=== PATIENT | female | born 1955 | race Caucasian/White ===

== ENCOUNTER → 2017-07-06 08:55 | Outpatient (CLI) | payer BC, SELFPAY ==
[2017-07-06 11:26] LABS: Anion Gap 8 (5-15); BUN 15 mg/dL (7-18); Calcium,Total 9.6 mg/dL (8.5-10.1); Chloride 101 mmol/L (98-107); Creatinine, Serum 0.71 mg/dL (0.55-1.02); EST Glomerular Filtration Rate 89 mL/min (>60); Est Glom Filt Rate - Afr Amer 108 mL/min (>60); Glucose 162 mg/dL (70-110); Potassium 3.2 mmol/L (3.5-5.1); Sodium Level 141 mmol/L (136-145)
== END ==
PROVIDERS: Family Provider Internal Medicine; PCP Internal Medicine; Visit Provider Internal Medicine
DX: I10 Essential (primary) hypertension (principal)
CPT/HCPCS: 36415; 80048

== ENCOUNTER → 2017-12-16 08:43 | Outpatient (CLI) | payer BC, SELFPAY ==
[2017-12-16 10:27] LABS: Anion Gap 8 (5-15); BUN 17 mg/dL (7-18); Calcium,Total 9.5 mg/dL (8.5-10.1); Chloride 103 mmol/L (98-107); Cholesterol 162 mg/dL (200); Creatinine, Serum 0.77 mg/dL (0.55-1.02); EST Glomerular Filtration Rate 81 mL/min (>60); Est Glom Filt Rate - Afr Amer 98 mL/min (>60); Glucose 99 mg/dL (74-106); High Density Lipoprotein 53 mg/dL; Potassium 3.7 mmol/L (3.5-5.1); Sodium Level 143 mmol/L (136-145); Triglycerides 75 mg/dL; Very Low Density Lipoprotein 15 mg/dL (5-40)
== END ==
PROVIDERS: Family Provider Internal Medicine; PCP Internal Medicine; Visit Provider Internal Medicine
DX: I10 Essential (primary) hypertension (principal); E87.6 Hypokalemia
CPT/HCPCS: 36415; 80048; 80061

== ENCOUNTER → 2018-04-22 10:52 | Outpatient (CLI) | payer BC, SELFPAY ==
[2018-03-18 13:43] VITALS: BMI 26.9
--- NOTE | 2018-04-22 10:54 | BI_ITS ---
MAMMOGRAPHY - BILATERAL SCREENING REASON FOR EXAM: Female, 62 years old. Routine annual screening examination. PERTINENT HISTORY: Non-contributory. TECHNIQUE: Digital bilateral breast param (3D mammographic acquisition) in the CC and MLO projections. 2-D mediolateral oblique (MLO) and craniocaudad (CC) views of both breasts were obtained. CAD: Full Field Digital Mammography with Computer Added Detection was performed. COMPARISON: Comparison is made with prior study dated April 16, 2017 and April 03, 2016. FINDINGS: Breast Composition: The breasts are extremely dense, which lowers the sensitivity of mammography. There are no dominant masses or suspicious calcifications. No other significant abnormalities are identified. There has been no significant change since the prior study. BI/SCREENING MAMM (CAD), BILAT IMPRESSION: Stable bilateral screening mammogram. Yearly follow-up mammogram recommended. (A) ASSESSMENT CATEGORY: BIRADS Category 1: Negative. A letter regarding these results will be sent to the patient by the facility within 30 days. Approximately 10% of breast cancers are not detected by mammography. A normal mammogram should not delay biopsy of a clinically suspicious abnormality. [id number] Electronically Signed: Nick Rojo MD at 12:38 EST Tel [phone], Service support ,
== END ==
PROVIDERS: Family Provider Internal Medicine; PCP Internal Medicine; Referring Provider Obstetrics & Gynecology; Visit Provider Obstetrics & Gynecology
DX: Z12.31 Encounter for screening mammogram for malignant neoplasm of breast (principal)
CPT/HCPCS: 77063; 77067

== ENCOUNTER → 2018-05-06 11:11 | Outpatient (CLI) | payer BC, SELFPAY ==
[2018-05-06 13:23] LABS: ALB/GLOB Ratio 0.9 RATIO (0.9-2.4); AST(SGOT) 27 U/L (15-37); Alanine Aminotransfer ALT/SGPT 43 U/L (13-56); Albumin, Serum 3.7 g/dL (3.2-5.0); Alkaline Phosphatase 101 U/L (45-117); Anion Gap 6 (5-15); BUN 15 mg/dL (7-18); BUN/Creat Ratio 22.6 RATIO (10-20); Calcium,Total 9.8 mg/dL (8.5-10.1); Chloride 102 mmol/L (98-107); Creatinine, Serum 0.66 mg/dL (0.55-1.02); EST Glomerular Filtration Rate 96 mL/min (>60); Est Glom Filt Rate - Afr Amer 117 mL/min (>60); Free T3 2.8 pg/mL (2.18-3.98); Glucose 92 mg/dL (74-106); Potassium 3.8 mmol/L (3.5-5.1); Protein, Total 7.7 g/dL (6.4-8.2); Sodium Level 139 mmol/L (136-145); T4 Free Direct 0.88 ng/dL (0.76-1.46); Thyroid Stim Hormone (TSH) 0.99 uIU/mL (0.358-3.74)
--- OUTSIDE RECORDS SUMMARY | 2018-07-01 13:55 | XMS RPT_ITS ---
:1955 Author Organization OHIP Support Name Relationship Address Phone RSOELYN GOMEZ Unavailable [address] + [address] [place] [address] WALWO Unavailable [address] + [place] [address] PATRICIA, ROSELYN Unavailable [address] + [address] [place] [address] W[place] Unavailable [address] + [place] [address] PATRICIA, ROSELYN Unavailable [address] [place] [address] W[place] Unavailable [address] + [place] [address] PATRICIA, ROSELYN Unavailable [address] [place] [address] WAL[place] Unavailable [address] + [place] [address] PATRICIA, ROSELYN Unavailable [address] [place] [address] W[place] Unavailable [address] + [place] [address] PATRICIA, ROSELYN Unavailable [address] [place] [address] WAL[place] Unavailable [address] + [place] [address] PATRICIA, ROSELYN Unavailable [address] [place] [address] WALWO Unavailable [address] + [place] [address] PATRICIA, ROSELYN Unavailable [address] + [address] [place] [address] WALWO Unavailable [address] + [place] [address] PATRICIA, ROSELYN Unavailable [address] [place] [address] WALWO Unavailable [address] + [place] [address] PATRICIA, ROSELYN Unavailable [address] + [address] [place] [address] WALWO Unavailable [address] + [place] [address] PATRICIA, ROSELYN Unavailable [address] [place] [address] WALWO Unavailable [address] + [place] [address] PATRICIA, ROSELYN Unavailable [address] + [address] [place] [address] WALWO Unavailable [address] + [place] [address] PATRICIA, ROSELYN Unavailable [address] [place] [address] WALWO Unavailable [address] + [place] [address] Care Team Providers Name Role Amber Aziza Tan Attending Unavailable Oleghe, Efewongbe Primary Care Unavailable Oleghe, Efewongbe Attending Unavailable Oleghe, Efewongbe Referring Unavailable Oleghe, Efewongbe Primary Care Unavailable Oleghe, Efewongbe Attending Unavailable Oleghe, Efewongbe Referring Unavailable Oleghe, Efewongbe Primary Care Unavailable Zain Campos D.O. Attending Unavailable Oleghe, Efewongbe Referring Unavailable Oleghe, Efewongbe Attending Unavailable Oleghe, Efewongbe Referring Unavailable Oleghe, Efewongbe Primary Care Unavailable Claudia Pritchard Attending Unavailable Oleghe, Efewongbe Attending Unavailable Oleghe, Efewongbe Referring Unavailable Oleghe, Efewongbe Primary Care Unavailable Oleghe, Efewongbe Attending Unavailable Oleghe, Efewongbe Referring Unavailable Oleghe, Efewongbe Primary Care Unavailable Oleghe, Efewongbe Attending Unavailable Oleghe, Efewongbe Referring Unavailable Gina Sorensen Attending Unavailable MarcGina christie Referring Unavailable Oleghe, Efewongbe Primary Care Unavailable Socorro Trujillo CAR BRACER-C Attending Unavailable ShoSocorro joaquin CAR BRACER-C Referring Unavailable Oleghe, Efewongbe Primary Care Unavailable Gina Sorensen Attending Unavailable Oleghe, Efewongbe Referring Unavailable Aziza Tan Attending Unavailable Oleghe, Efewongbe Referring Unavailable Oleghe, Efewongbe Primary Care Unavailable PROBLEMS PROBLEMS DATE TYPE CONDITION / CODE ATTENDING STATUS SOURCE 05/06/2018 Unknown Z01.419 - Encounter Franchesca, Active [place] for gynecological [facility] (general) (routine) Repository without abnormal findings / Z01.419(ICD-10) 12/16/2017 Unknown I10 - Essential Oleghe, Active [place] (primary) [facility] hypertension / Hospital I10(ICD-10) Repository 09/09/2017 Unknown E87.6 - Hypokalemia Oleghe, Active [place] / E87.6(ICD-10) [facility] Repository 06/12/2017 Unknown R05 - Cough / Tan, Active [place] R05(ICD-10) [facility] Repository 05/22/2017 Unknown G47.33 - Tan, Active [place] Obstructive sleep [facility] apnea (adult) Hospital (pediatric) / Repository G47.33(ICD-10) 05/22/2017 Unknown F17.201 - Nicotine Tan, Active [place] dependence, [facility] unspecified, in Hospital remission / Repository F17.201(ICD-10) PROCEDURES PROCEDURES No Procedure Records FoundRESULTS RESULTS 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 Required: No Is patient in pain?: No Allergies amoxicillin Allergy (Mild, Verified 05/06/18 13:16) Hives decongestants Allergy (Intermediate, Uncoded 05/06/18 13:16) palpitations Medications calcium carbonate 600 mg calcium (1,500 mg) tablet 600 mg PO ONCE tab 05/14/17 [History Confirmed 05/06/18] fluticasone 50 mcg/actuation nasal spray,suspension 2 spray INTRANASAL ONCE g 05/14/17 [History Confirmed 05/06/18] cholecalciferol (vitamin D3) 2,000 unit capsule 2,000 unit PO ONCE 06/17/17 [History Confirmed 05/06/18] esomeprazole magnesium 20 mg capsule,delayed release 40 mg PO QDAY cap 06/17/17 [History Confirmed 05/06/18] venlafaxine ER 37.5 mg capsule,extended release 24 hr 37.5 mg PO QDAY #30 cap 06/18/17 [Rx Confirmed 05/06/18] cyclobenzaprine 10 mg tablet 10 mg PO QHS PRN tab 12/10/17 [History Confirmed 05/06/18] magnesium 200 mg tablet 200 mg PO QDAY 12/10/17 [History Confirmed 05/06/18] hydrochlorothiazide 12.5 mg tablet 12.5 mg PO QDAY #60 tab 02/17/18 [Rx Confirmed 05/06/18] potassium chloride ER 10 mEq capsule,extended release 10 meq PO QDAY #60 cap 03/10/18 [Rx Confirmed 05/06/18] gabapentin 100 mg capsule 200 mg PO QDAY #180 cap 04/26/18 [Rx Confirmed 05/06/18] methimazole 5 mg tablet 2.5 mg PO QDAY #30 tab 05/04/18 [Rx Confirmed 05/06/18] Is last menstrual period known: No Post menopausal: Yes Patient : No : No PFSH Medical History Benign essential HTN (Chronic) Depression (Chronic) Elevated blood pressure reading (Acute) Pneumonia (Acute) Upper respiratory infection, acute (Acute) Breathing-related sleep disorder (Chronic) Bronchitis (Chronic) GERD (gastroesophageal reflux disease) (Chronic) Hyperthyroidism (Chronic) Low back pain (Chronic) Pain in right shoulder (Chronic) Snoring (Chronic) Seizure disorder (Resolved) Pulmonary embolism (Inactive) Surgical History history of A/P repair (Acute) H/O tubal ligation (Resolved) Family History Mother Diabetes Myocardial infarction CVA (cerebral vascular accident) Thyroid disorder Cancer skin Kidney disease Father Myocardial infarction Heart disease Sister Lupus Social History Smoking Status: Former smoker quit date: 06/08/08 pack-years: 56 second hand exposure: No alcohol intake: current alcohol intake frequency: holidays/special occasions only Alcohol type: beer substance use type: does not use what type of physical activity do you participate in: walking frequency: 1-2 times per week Pregancy History 1 Elective abortions Hx Para 1 Spontaneous abortions Past Pregnancies Del. DatName GA/WeeksOutcome Route [facility] LocaProviderFOB e ht en ia tn Unknown 1975 [facility] stal th - ful wn l term Delivery Date: On 05/06/18 @ 14:05 Gina Sorensen estranged- but communicates with 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 keeps in touch with grandkids- going to be a great grandma Last PAP: 17 normal History of abnormal PAP: nl Last mammogram: nl done last week History of abnormal mammogram: Colon cancer screening: up to date Other preventative health care screenings: pcp dr sanchez Female Reproductive History Questions: Metorrhagia: No, Sexually active: Yes, Dyspareunia: Yes (dryness), PCB: No Menopausal Symptoms: No hot flashes, No night sweats, No weight change, No mood changes, No difficulty concentrating, No sleep problems, No change in libido ROS Const Constitutional: Reports as per HPI; denies poor appetite, fatigue, increased appetite, weight gain, weight loss or night sweats Cardio Card: Denies chest pain Resp Resp: Denies dyspnea or cough GI GI: Reports as per HPI; denies bloating, abdominal pain, constipation, vomiting or nausea : Reports as per HPI and other; denies blood in urine, vaginal odor, vaginal itching, vaginal dryness, vaginal discharge, urinary urgency, urinary incontinence, urinary frequency, pelvic pain, painful urination, difficulty urinating, prolapse symptoms, nipple discharge or hot flashes Skin Skin/Breast: Denies breast pain, breast skin changes, nipple discharge, breast lump or changing lesions Psych Psych: Denies difficulty concentrating or change in sex drive Exam Const General: cooperative, healthy appearing, comfortable, no acute distress, well developed, well groomed [facility] Head: normal to inspection, normocephalic Ears: hearing grossly normal bilaterally, external ears normal Nose: external nose normal Face and sinus: normal facial exam Neck Neck: normal visual inspection, full ROM, no lymphadenopathy Thyroid: thyroid normal Chest Chest palpation AND inspection: normal inspection of the chest Breast inspection: normal inspection of the breasts, normal inspection of the axillae Breast palpation: normal palpation of the breasts, normal palpation of the axillae, no axillary lymphadenopathy Resp Effort AND Inspection: normal respiratory effort GI Inspection: normal to inspection, non-distended Palpation: no guarding, soft, no hepatosplenomegaly General: bladder normal to palpation External Female Exam: normal external appearance, normal appearance of the urethra, no lesions Urethra: normal appearance of the urethra, normal palpation Speculum Exam - Vagina: normal appearance of the vagina, normal vaginal discharge Speculum Exam - Cervix: normal appearance of the cervix, no cervical discharge, no lesions, nontender Bimanual Exam- Vagina AND Uterus: No cervical tenderness, normal bimanual exam, uterine size normal, bladder normal to palpation, uterine mobility normal, uterine consistency normal, uterus non-tender, no cervical motion tenderness Bimanual Exam- Adnexa, other: normal adnexae, no adnexal masses, adnexae non-tender Skin General: no rashes or lesions noted Neuro General: alert, moves all extremities, no focal motor deficits Extrem General: no pedal edema, normal to inspection Psych Appearance: grossly normal Mental Status: mental status grossly normal Affect: normal affect Speech and Movement: speech and movement normal Attitude: cooperative Assessment AND Plan Problems 1. Encounter for gynecological examination without abnormal finding Z01.419 Plan Cervical cancer screening: pap 2016 nl Breast cancer screening: mamm up to date other health maintenance examination reviewed and orders placed if needed. Encouraged maintenance of a healthy weight and active lifestyle and handout given. Annual exam handout including recommendations for good health guidelines, Calcium/vitamin D recommendations, and basic screening information given. Problem list up to date, see problem list details for any additional plan information. Follow up in one year for annual health maintenance exam or sooner if needed. Coding Level of Care Code Off vis,est,prev 40-64yrs Diagnoses Encounter for gynecological examination without abnormal finding Z01.419 Gynecological examination findings: abnormal findings ABSENT 05/06/18 1416 <Electronically signed by Gina Sorensen MD> Date Gina Sorensen MD Cosigner Signature: Date (if applicable) CC: COMPREHENSIVE METABOLIC Collected: 05/06/2018 Status: F Source: [place] 11:13 AM [facility] REPOSITORY TYPE CODE TESTS RESULT OUT OF RANGE REFERENCE UNITS LAB L501.0100 74-106 mg/dL Normal GLU 92 Result Comment: Please note revised GLUCOSE reference range effective 2017. LAB L501.1000 7-18 mg/dL Normal BUN 15 LAB L501.1100 0.55-1.02 mg/dL Normal CREAT,SERUM 0.66 Result Comment: The validity of the calculated GFR AND GFRAA in patients over 70 years has not been determined. Clinical correlation is essential. LAB L501.1110 >60 mL/min Normal EST GFR 96 Result Comment: Non- GFR Calc LAB L501.1115 >60 mL/min Normal EST GFR - AA 117 Result Comment: GFR Calc LAB L501.1300 10-20 RATIO High BUN/CRE 22.6 LAB L501.1500 6.4-8.2 g/dL T Normal PROT 7.7 LAB L501.1800 3.2-5.0 g/dL Normal ALB 3.7 LAB L501.1950 2.2-4.2 g/dL Normal GLOB 4.0 LAB L501.2000 0.9-2.4 RATIO Normal A/G 0.9 LAB L501.2200 8.5-10.1 mg/dL CA Normal 9.8 LAB L501.4100 15-37 U/L Normal AST 27 LAB L501.4305 45-117 U/L Normal ALK P 101 LAB L501.4405 13-56 U/L Normal ALT 43 LAB L501.4600 0.20-1.00 mg/dL T Normal BILI 0.70 LAB L501.5300 136-145 mmol/L NA Normal 139 LAB L501.5600 3.5-5.1 mmol/L K Normal 3.8 LAB L501.5900 98-107 mmol/L CL Normal 102 LAB L501.6100 21.0-32.0 mmol/L Normal CO2 31.0 LAB L501.6200 5-15 Normal GAP 6 Performed By: #### L500.4050, L501.24458, L501.9520, L506.0400 #### [facility] [address] [place], [place], [id number] FREE T3 Collected: 05/06/2018 Status: F Source: [place] 11:13 AM [facility] REPOSITORY TYPE CODE TESTS RESULT OUT OF RANGE REFERENCE UNITS LAB L501.84721 2.18-3.98 pg/mL Normal FREE T3 2.8 Performed By: #### L500.4050, L501.73203, L501.9520, L506.0400 #### [facility] [address] [place], [place], [address] THYROID STIM HORMONE Collected: 05/06/2018 Status: F Source: [place] (TSH) 11:13 AM [facility] REPOSITORY TYPE CODE TESTS RESULT OUT OF RANGE REFERENCE UNITS LAB L501.9520 0.358-3.74 uIU/mL Normal TSH 0.99 Performed By: #### L500.4050, L501.90281, L501.9520, L506.0400 #### [facility] [address] [place], [address] T4 FREE DIRECT Collected: 05/06/2018 Status: F Source: [place] 11:13 AM [facility] REPOSITORY TYPE CODE TESTS RESULT OUT OF RANGE REFERENCE UNITS LAB L506.0400 0.76-1.46 ng/dL Normal T4 FREE 0.88 DIRECT Performed By: #### L500.4050, L501.46720, L501.9520, L506.0400 #### [facility] [address] [place], [address] SCREENING MAMM (CAD), Observed: 04/22/2018 Status: F Source: [place] BIL 10:54 AM [facility] REPOSITORY [facility] Services [address] [place] [address] SCREENING MAMM (CAD), BILAT MR#: [id number] Acct: [id number] Name: PATRICIANELSON Mirela Rep #: [id number] : 1955 F 62 From: Nick Rojo MD PCP: Dior Sanchez MD Status: REG CLI Study: SCREENING MAMM (CAD), BILAT Date of Exam: 04/22/18 Exam# [id number] Ordering Dr: Gina Sorensen MD MAMMOGRAPHY - BILATERAL SCREENING REASON FOR EXAM: Female, 62 years old. Routine annual screening examination. PERTINENT HISTORY: Non-contributory. TECHNIQUE: Digital bilateral breast param (3D mammographic acquisition) in the CC and MLO projections. 2-D mediolateral oblique (MLO) and craniocaudad (CC) views of both breasts were obtained. CAD: Full Field Digital Mammography with Computer Added Detection was performed. COMPARISON: Comparison is made with prior study dated April 16, 2017 and April 03, 2016. FINDINGS: Breast Composition: The breasts are extremely dense, which lowers the sensitivity of mammography. There are no dominant masses or suspicious calcifications. No other significant abnormalities are identified. There has been no significant change since the prior study. BI/SCREENING MAMM (CAD), BILAT IMPRESSION: Stable bilateral screening mammogram. Yearly follow-up mammogram recommended. (A) ASSESSMENT CATEGORY: BIRADS Category 1: Negative. A letter regarding these results will be sent to the patient by the facility within 30 days. Approximately 10% of breast cancers are not detected by mammography. A normal mammogram should not delay biopsy of a clinically suspicious abnormality. [id number] Electronically Signed: Nick Rojo MD at 12:38 EST Tel [phone], Service support , CC: Dior Sanchez MD; Gina Sorensen MD Logistics Analytics Manager: Signed INTERNAL MEDICINE Observed: 03/19/2018 Status: F Source: [place] OFFICE VISIT 4:33 PM [facility] [address] [place] [address] [place] [address] OFFICE VISIT Date of Service: 03/18/18 MR#: [id number] Acct: [id number] Name: NELSON GOMEZ Rep #: [id number] : 1955 Provider: Dior Sanchez MD Age/Sex: 62/F Location[facility] Status: Signed Intake Vital Signs03/18/18 Height 5 ft 4 in 03/18/18 Weight: 157 lb 03/18/18 Body Mass Index (BMI) 26.9 03/18/18 Blood Pressure 136/88 H 03/18/18 Blood Pressure Location Lt brachial Intake Visit Reasons: 3 MO FU Chief Complaint: 3 MO FU HTN Is patient in pain?: No Allergies amoxicillin Allergy (Mild, Verified 03/18/18 13:44) Hives decongestants Allergy (Intermediate, Uncoded 03/18/18 13:44) palpitations Medications calcium carbonate 600 mg calcium (1,500 mg) tablet 600 mg PO ONCE tab 05/14/17 [History Confirmed 03/18/18] fluticasone 50 mcg/actuation nasal spray,suspension 2 spray INTRANASAL ONCE g 05/14/17 [History Confirmed 03/18/18] methimazole 5 mg tablet 2.5 mg PO QDAY tab 05/14/17 [History Confirmed 03/18/18] cholecalciferol (vitamin D3) 2,000 unit capsule 2,000 unit PO ONCE 06/17/17 [History Confirmed 03/18/18] esomeprazole magnesium 20 mg capsule,delayed release 40 mg PO QDAY cap 06/17/17 [History Confirmed 03/18/18] venlafaxine ER 37.5 mg capsule,extended release 24 hr 37.5 mg PO QDAY #30 cap 06/18/17 [Rx Confirmed 03/18/18] gabapentin 100 mg capsule 200 mg PO QDAY #180 cap 09/29/17 [Rx Confirmed 03/18/18] cyclobenzaprine 10 mg tablet 10 mg PO QHS PRN tab 12/10/17 [History Confirmed 03/18/18] magnesium 200 mg tablet 200 mg PO QDAY 12/10/17 [History Confirmed 12/10/17] hydrochlorothiazide 12.5 mg tablet 12.5 mg PO QDAY #60 tab 02/17/18 [Rx Confirmed 03/18/18] potassium chloride ER 10 mEq capsule,extended release 10 meq PO QDAY #60 cap 03/10/18 [Rx Confirmed 03/18/18] [facility] Medical History Benign essential HTN (Chronic) Depression (Chronic) Pulmonary embolism (Chronic) Elevated blood pressure reading (Acute) Pneumonia (Acute) Upper respiratory infection, acute (Acute) Breathing-related sleep disorder (Chronic) Bronchitis (Chronic) GERD (gastroesophageal reflux disease) (Chronic) Hyperthyroidism (Chronic) Low back pain (Chronic) Pain in right shoulder (Chronic) Snoring (Chronic) Seizure disorder (Resolved) Surgical History H/O tubal ligation (Resolved) Family History Mother Diabetes Myocardial infarction CVA (cerebral vascular accident) Thyroid disorder Cancer skin Kidney disease Father Myocardial infarction Heart disease Sister Lupus Social History Smoking Status: Former smoker quit date: 01/01/09 pack-years: 56 second hand exposure: No alcohol intake: current alcohol intake frequency: holidays/special occasions only Alcohol type: beer substance use type: does not use what type of physical activity do you participate in: walking frequency: 1-2 times per week HPI HPI Chief Complaint: 3 MO FU HTN Details: NELSON GOMEZ, is a 62yo F who presents to the office today for follow-up of her chronic medical conditions. She has no acute complaints at this time. Initial blood pressure reading of 136/80 8 mmHg. However, repeat blood pressure was 130/80 mmHg. She reports compliance with her medications. ROS Const Constitutional: No chills, fatigue, fever(s), frequent falls, malaise, weakness, sleep problems or change in appetite Eyes Eyes: No blurry vision, change in vision, double vision, discharge or visual disturbances ENT ENT: No abnormal hearing, ear pain, ear pressure, tinnitus or dizziness/vertigo Resp Respiratory: No cough, shortness of breath or wheezing Cardio Cardiology: No chest pain at rest, chest pain with exertion, shortness of breath, dyspnea on exertion, generalized swelling, irregular heart rhythm, lightheadedness, orthopnea, fast heart rate or palpitations Gastro GI: No abdominal pain, change in bowel habits, constipation, diarrhea, nausea/dyspepsia or vomiting Genitourinary-Female: No difficulty urinating, burning urination, painful urination, urinary incontinence, urinary frequency, urinary urgency, urinary hesitancy, urinary retention, Frequent nighttime urination/ nocturia, sexual problems, genital lesions, abnormal vaginal bleeding, pelvic pain, vaginal dryness, vaginal odor or Vaginal Itching Musc Musculoskeletal: No joint pain, back pain, joint swelling, limited range of motion, numbness or tingling Skin Skin: No change in skin color, itching, rash or wounds Breast Breast: No breast lump or breast pain Neuro Neurology: No frequent falls, weakness, abnormal hearing, numbness, tingling, unsteady gait/balance, dizziness, loss of vision, memory loss or visual disturbances Psych Psychiatric: No memory loss, No anxiety, No change in appetite, No depression, No Thoughts of harming yourself/Others Endo Endocrine: No fatigue, heat intolerance, increased thirst/drinking, increased hunger or increased urination Aller/Imm Allergy/Immunologic: No wheezing, itchy eyes or seasonal allergy symptoms Jose Antonio/Lymp Hematologic/Lymphatic: No easy bleeding, easy bruising or enlarged lymph nodes Exam Const General: cooperative, no acute distress Orientation: alert, awake, oriented x3 HENMT Head: atraumatic, normocephalic Ears: hearing grossly normal bilaterally Resp Effort AND Inspection: normal respiratory effort, able to speak in complete sentences Auscultation: Bilateral: Clear to Auscultation Cardio Rate: regular rate Rhythm: regular rhythm Heart Sounds: S1 normal, S2 normal GI Palpation: soft, no hepatosplenomegaly Neuro General: alert, awake, oriented x3, moves all extremities, CN's II-XI intact bilaterally Extrem General: no clubbing, cyanosis or edema Psych Appearance: grossly normal Mood: congruent mood Affect: normal affect Assessment AND Plan 1. Benign essential HTN I10 Plan Stable. Initial Bp elevated however, repeat Bp at 130/80mmHg. She reports compliance with her medications, continue current management. Continue lifestyle/dietary modifications. 2. Depression F32.9 Plan Stable. Has done well on venlafaxine. Continue current management. 3. Low back pain radiating to left lower extremity M54.5; M79.605 Plan Stable. No recent flareups. Continue gabapentin. 4. Healthcare maintenance Z00.00 Plan Scheduled to receive flu shot at work. Works at [employer]. 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 Mammogram scheduled for next month. Colonoscopy due in 3 years. Discuss lung cancer screening at her next visit. This note was generated with [employer] dictation software. It may contain incorrect words, spelling, and punctuation that were not noted in checking the note before signing. Coding Level of Care Code Off vis,est,level 3 Diagnoses Benign essential HTN I10 Depression F32.9 Low back pain radiating to left lower extremity M54.5; M79.605 Healthcare maintenance Z00.00 03/19/18 1909 <Electronically signed by Dior Sanchez MD> Date Dior Sanchez MD Cosigner Signature: Date (if applicable) CC: BASIC METABOLIC Collected: 12/16/2017 Status: F Source: [place] [facility] 8:49 AM [facility] REPOSITORY TYPE CODE TESTS RESULT OUT OF RANGE REFERENCE UNITS LAB L501.0100 74-106 mg/dL Normal GLU 99 Result Comment: Please note revised GLUCOSE reference range effective 2017. LAB L501.1000 7-18 mg/dL Normal BUN 17 LAB L501.1100 0.55-1.02 mg/dL Normal CREAT,SERUM 0.77 Result Comment: The validity of the calculated GFR AND GFRAA in patients over 70 years has not been determined. Clinical correlation is essential. LAB L501.1110 >60 mL/min Normal EST GFR 81 Result Comment: Non- GFR Calc LAB L501.1115 >60 mL/min Normal EST GFR - AA 98 Result Comment: GFR Calc LAB L501.1300 10-20 RATIO High BUN/CRE 22.0 LAB L501.2200 8.5-10.1 mg/dL CA Normal 9.5 LAB L501.5300 136-145 mmol/L NA Normal 143 LAB L501.5600 3.5-5.1 mmol/L K Normal 3.7 LAB L501.5900 98-107 mmol/L CL Normal 103 LAB L501.6100 21.0-32.0 mmol/L Normal CO2 32.0 LAB L501.6200 5-15 Normal GAP 8 Performed By: #### L500.2500, L500.4100 #### [facility] [address] [place], [address] LIPID PROFILE Collected: 12/16/2017 Status: F Source: [place]EV[place] 8:49 AM [facility] [place] REPOSITORY TYPE CODE TESTS RESULT OUT OF RANGE REFERENCE UNITS LAB L501.4900 200 mg/dL Normal CHOL 162 Result Comment: <200 mg/dL Desirable 200-240 mg/dL Borderline >240 mg/dL High Risk LAB L501.5000 mg/dL Normal TRIG 75 Result Comment: The drugs N-Acetylcysteine and Metamizole may falsely depress this assay. Serum Triglycerides Reference Interval Normal <150 mg/dL Borderline high 150 - 199 mg/dL High 200 - 499 mg/dL Very High > or = 500 mg/dL LAB L501.6400 mg/dL Normal HDL 53 Result Comment: The drugs N-Acetylcysteine and Metamizole may falsely depress this assay. Reference Range HDL <40 mg/dL Low HDL Cholesterol HDL >or= 60 mg/dL High HDL Cholesterol LAB L501.6500 0-130 mg/dL Normal LDL 94 LAB L501.6600 5-40 mg/dL Normal VLDL 15 Performed By: #### L500.2500, L500.4100 #### [facility] [address] [place], [address] INTERNAL MEDICINE Observed: 12/11/2017 Status: F Source: [place] OFFICE VISIT 12:54 PM [facility] [place] REPOSITORY [facility] [address] [place] [address] [place] [address] OFFICE VISIT Date of Service: 12/10/17 MR#: [id number] Acct: [id number] Name: NELSON GOMEZ Rep #: [id number] : 1955 Provider: Dior Sanchez MD Age/Sex: 62/F Location: [facility] Status: Signed Intake Vital Signs12/10/17 Height 5 ft 4 in Intake Visit Reasons: 3 MO FU Chief Complaint: 3 mo F/U BP Is patient in pain?: No Allergies amoxicillin Allergy (Mild, Verified 09/09/17 17:28) Hives decongestants Allergy (Intermediate, Uncoded 09/09/17 17:28) palpitations Medications calcium carbonate 600 mg calcium (1,500 mg) tablet 600 mg PO ONCE tab 05/14/17 [History Confirmed 12/10/17] fluticasone 50 mcg/actuation nasal spray,suspension 2 spray INTRANASAL ONCE g 05/14/17 [History Confirmed 12/10/17] methimazole 5 mg tablet 2.5 mg PO QDAY tab 05/14/17 [History Confirmed 12/10/17] cholecalciferol (vitamin D3) 2,000 unit capsule 2,000 unit PO ONCE 06/17/17 [History Confirmed 12/10/17] esomeprazole magnesium 20 mg capsule,delayed release 40 mg PO QDAY cap 06/17/17 [History Confirmed 12/10/17] hydrochlorothiazide 12.5 mg tablet 12.5 mg PO QDAY #60 tab 06/17/17 [Rx Confirmed 12/10/17] venlafaxine ER 37.5 mg capsule,extended release 24 hr 37.5 mg PO QDAY #30 cap 06/18/17 [Rx Confirmed 12/10/17] blood pressure test kit-medium cuff See Dose Instructions .ROUTE .MEDSUPPLY #1 ea 06/19/17 [Rx Confirmed 12/10/17] potassium chloride ER 10 mEq capsule,extended release 10 meq PO QDAY #60 cap 07/06/17 [Rx Confirmed 12/10/17] gabapentin 100 mg capsule 200 mg PO QDAY #180 cap 09/29/17 [Rx Confirmed 12/10/17] cyclobenzaprine 10 mg tablet 10 mg PO QHS PRN tab 12/10/17 [History Confirmed 12/10/17] magnesium 200 mg tablet 200 mg PO QDAY 12/10/17 [History Confirmed 12/10/17] PFSH Medical History Benign essential HTN (Chronic) Depression (Chronic) Pulmonary embolism (Chronic) Elevated blood pressure reading (Acute) Pneumonia (Acute) Upper respiratory infection, acute (Acute) Breathing-related sleep disorder (Chronic) Bronchitis (Chronic) GERD (gastroesophageal reflux disease) (Chronic) Hyperthyroidism (Chronic) Low back pain (Chronic) Pain in right shoulder (Chronic) Snoring (Chronic) Seizure disorder (Resolved) Surgical History H/O tubal ligation (Resolved) Family History Mother Diabetes Myocardial infarction CVA (cerebral vascular accident) Thyroid disorder Cancer skin Kidney disease Father Myocardial infarction Heart disease Sister Lupus Social History Smoking Status: Former smoker quit date: 06/08/08 pack-years: 56 second hand exposure: No alcohol intake: current alcohol intake frequency: holidays/special occasions only Alcohol type: beer substance use type: does not use what type of physical activity do you participate in: walking frequency: 1-2 times per week HPI HPI Chief Complaint: 3 mo F/U BP Details: NELSON GOMEZ, is a 62yo F who presents to the office today for follow-up of her blood pressure. She has no complaints at this time. Blood pressure has remained stable. ROS Const Constitutional: No weight change, body ache, chills, fatigue, sleep problems, fever(s), change in appetite, snoring, weakness, frequent falls, headache(s) or excessive sweating Eyes Eyes: No change in vision, eye pain, light sensitivity or blurry vision ENT ENT: No headache(s), abnormal hearing, ear pain, tinnitus, nasal congestion, sore throat or neck pain Resp Respiratory: No snoring, cough, shortness of breath or wheezing Cardio Cardiology: No excessive sweating, chest pain at rest, chest pain with exertion, shortness of breath, dyspnea on exertion, palpitations, orthopnea or lightheadedness Gastro GI: No abdominal pain, change in bowel habits, constipation, diarrhea, vomiting, nausea/dyspepsia or cramping Genitourinary-Female: No burning urination, painful urination, urinary incontinence, urinary frequency, abnormal vaginal bleeding, pelvic pain or other Musc Musculoskeletal: No neck pain, abnormal walking, joint pain, back pain, limited range of motion, numbness, tingling or muscle weakness Skin Skin: No redness, dry skin, itching, lesions, wounds or rash Neuro Neurology: No weakness, frequent falls, headache(s), abnormal hearing, abnormal walking, numbness, tingling, abnormal speech, dizziness or memory loss Psych Psychiatric: No change in appetite, No memory loss, No anxiety, No depression, No Thoughts of harming yourself/Others Endo Endocrine: No fatigue, excessive sweating, cold intolerance, increased thirst/drinking, heat intolerance, flushing or increased hunger Aller/Imm Allergy/Immunologic: No wheezing, itchy eyes, hives or seasonal allergy symptoms Jose Antonio/Lymp Hematologic/Lymphatic: No easy bleeding, easy bruising or enlarged lymph nodes Exam Const General: cooperative, no acute distress Orientation: alert, awake, oriented x3 HENMT Head: atraumatic, normocephalic Ears: hearing grossly normal bilaterally Resp Effort AND Inspection: normal respiratory effort, able to speak in complete sentences Auscultation: Bilateral: Clear to Auscultation Cardio Rate: regular rate Rhythm: regular rhythm Heart Sounds: S1 normal, S2 normal GI Palpation: soft, no hepatosplenomegaly Musc Musculoskeletal: No muscle weakness Neuro General: alert, awake, oriented x3, moves all extremities, CN's II-XI intact bilaterally Extrem General: pedal edema bilaterally Psych Appearance: grossly normal Mood: congruent mood Affect: normal affect Assessment AND Plan 1. Benign essential HTN I10 Plan Optimally controlled. Continue current medications. BMP and lipid profile ordered. Will follow. Orders Orders: 2. Depression F32.9 Plan Stable. Continue current medications. 3. CHING (obstructive sleep apnea) G47.33 Plan Stable. Continue CPAP. This note was generated with EquityLanceration software. It may contain incorrect words, spelling, and punctuation that were not noted in checking the note before signing. Plan Detail Follow Up 3 Months Coding Level of Care Code Off vis,est,level 3 Diagnoses Benign essential HTN I10 Depression F32.9 CHING (obstructive sleep apnea) G47.33 12/11/17 1254 <Electronically signed by Dior Sanchez MD> Date Dior Sanchez MD Cosigner Signature: Date (if applicable) CC: INTERNAL MEDICINE Observed: 09/11/2017 Status: F Source: KEV[place] OFFICE VISIT 1:04 PM [facility] [address] [place] [address] [place] [address] OFFICE VISIT Date of Service: 09/09/17 MR#: [id number] Acct: [id number] Name: NELSON GOMEZ Rep #: [id number] : 1955 Provider: Dior Sanchez MD Age/Sex: 62/F Location: [facility] Status: Signed Intake Vital Signs09/09/17 Height 5 ft 4 in 09/09/17 Weight: 152 lb 09/09/17 Body Mass Index (BMI) 26.1 09/09/17 Blood Pressure 123/83 Intake Visit Reasons: 3 mo fu Chief Complaint: 3 mo F/U BP Is patient in pain?: No Allergies amoxicillin Allergy (Mild, Verified 09/09/17 17:28) Hives decongestants Allergy (Intermediate, Uncoded 09/09/17 17:28) palpitations Medications calcium carbonate 600 mg calcium (1,500 mg) tablet 600 mg PO ONCE tab 05/14/17 [History Confirmed 06/17/17] fluticasone 50 mcg/actuation nasal spray,suspension 2 spray INTRANASAL ONCE g 05/14/17 [History Confirmed 06/17/17] gabapentin 100 mg capsule 200 mg PO QDAY cap 05/14/17 [History Confirmed 06/17/17] methimazole 5 mg tablet 2.5 mg PO QDAY tab 05/14/17 [History Confirmed 06/17/17] biotin 1,000 mcg chewable tablet mcg PO 06/17/17 [History Confirmed 06/17/17] cholecalciferol (vitamin D3) 2,000 unit capsule 2,000 unit PO ONCE 06/17/17 [History Confirmed 06/17/17] esomeprazole magnesium 20 mg capsule,delayed release 40 mg PO QDAY cap 06/17/17 [History Confirmed 06/17/17] hydrochlorothiazide 12.5 mg tablet 12.5 mg PO QDAY #60 tab 06/17/17 [Rx Confirmed 06/17/17] venlafaxine ER 37.5 mg capsule,extended release 24 hr 37.5 mg PO QDAY #30 cap 06/18/17 [Rx] blood pressure test kit-medium cuff See Dose Instructions .ROUTE .MEDSUPPLY #1 ea 06/19/17 [Rx] potassium chloride ER 10 mEq capsule,extended release 10 meq PO QDAY #60 cap 07/06/17 [Rx Confirmed 07/06/17] [facility] Medical History Benign essential HTN (Chronic) Depression (Chronic) Pulmonary embolism (Chronic) Elevated blood pressure reading (Acute) Pneumonia (Acute) Upper respiratory infection, acute (Acute) Breathing-related sleep disorder (Chronic) Bronchitis (Chronic) GERD (gastroesophageal reflux disease) (Chronic) Hyperthyroidism (Chronic) Low back pain (Chronic) Pain in right shoulder (Chronic) Snoring (Chronic) Seizure disorder (Resolved) Surgical History H/O tubal ligation (Resolved) Family History Mother Diabetes Myocardial infarction CVA (cerebral vascular accident) Thyroid disorder Cancer skin Kidney disease Father Myocardial infarction Heart disease Sister Lupus Social History Smoking Status: Former smoker quit date: 06/08/08 pack-years: 56 second hand exposure: No alcohol intake: current alcohol intake frequency: holidays/special occasions only Alcohol type: beer substance use type: does not use what type of physical activity do you participate in: walking frequency: 1-2 times per week HPI HPI Chief Complaint: 3 mo F/U BP Details: NELSON GOMEZ, is a 62yo F who presents to the office today for follow-up of her blood pressure. She has no acute complaints at this time. ROS Const Constitutional: No anorexia, body ache, chills, fever(s), decreased energy, malaise, night sweats, weight change, sleep problems, other, weakness, frequent falls, headache(s), abnormal sleep pattern, change in appetite, excessive sweating or fatigue Eyes Eyes: No blurry vision, change in vision, double vision, discharge, dry eyes, bulging eyes, floaters, eye pain, light sensitivity, spots in vision, tunnel vision, other or visual disturbances ENT ENT: No ear pain, ear discharge, ear pressure, hearing loss, tinnitus, dizziness/vertigo, balance problems, nosebleed/epistaxis, nasal congestion, nasal obstruction, nose pain, sinus pressure, sinus pain, nasal discharge, post nasal drip, facial pain, dental pain, dry mouth, bad breath, hoarseness, mouth lesions, mouth pain, sore throat, difficulty swallowing, neck pain, abnormal hearing, headache(s), other, lip swelling, throat swelling or tongue swelling Resp Respiratory: No wheezing Cardio Cardiology: No chest pain at rest, chest pain with exertion, leg pain with exertion, shortness of breath, dyspnea on exertion, generalized swelling, irregular heart rhythm, lightheadedness, orthopnea, radiating jaw, neck or arm pain, fast heart rate, slow heart rate, palpitations, other or excessive sweating Gastro GI: No abdominal pain, belching, bloating, change in bowel habits, change in stool character, coffee ground emesis, constipation, cramping, diarrhea, heartburn, difficulty swallowing, feeling full early, excessive flatus, incontinent of stools, Vomiting blood/hematemesis, blood in stool, loose stools, Black,tarry stools, nausea/dyspepsia, pain with swallowing, vomiting or other Genitourinary-Female: No difficulty urinating, burning urination, painful urination, urinary incontinence, urinary frequency, urinary urgency, urinary hesitancy, urinary retention, blood in urine, Frequent nighttime urination/ nocturia, post void dribbling, suprapubic fullness, side pain, sexual problems, genital lesions, genital itching, hot flashes, abnormal periods, abnormal vaginal bleeding, absent period, painful periods, light periods, heavy periods, difficulty getting , painful intercourse, pelvic pain, vaginal dryness, vaginal odor, Vaginal Itching or other Musc Musculoskeletal: Positive for back pain; no joint pain, deformity, joint swelling, limited range of motion, loss of height, muscle cramps, muscle weakness, decreased muscle mass, body aches, neck pain, radiating pain into limb, stiffness, other, abnormal walking, numbness or tingling Skin Skin: No acne, hair loss, change in hair, nail changes, boil, change in skin color, dry skin, redness, excessive hair growth, yellowing of the skin, lesions, rash, skin pain, skin ulcer, sores, skin swelling, wounds, other or itching Breast Breast: No change in breast shape, breast lump, breast pain, breast skin changes, breast swelling, nipple discharge or other Neuro Neurology: No abnormal walking, abnormal hearing, abnormal movements, abnormal speech, unsteady gait/balance, dizziness, weakness, frequent falls, headache(s), lack of coordination, loss of vision, numbness, tingling, visual disturbances, restless legs, fainting, tremor(s), other, behavioral changes, confusion or memory loss Psych Psychiatric: No abnormal sleep pattern, No lack of enjoyment, No anxiety, No behavioral changes, No change in appetite, No confusion, No depression, No difficulty concentrating, No hopelessness, No irritability, No memory loss, No mood swings, No panic attacks, No paranoia, No Thoughts of harming yourself/Others, No hallucinations, No other Endo Endocrine: No change in body appearance, cold intolerance, excessive sweating, fatigue, flushing, heat intolerance, increased thirst/drinking, increased hunger, increased urination or other Aller/Imm Allergy/Immunologic: No food intolerance, itchy eyes, lip swelling, seasonal allergy symptoms, throat swelling, tongue swelling, hives, wheezing or other Jose Antonio/Lymp Hematologic/Lymphatic: No easy bleeding, easy bruising, enlarged lymph nodes or other Exam Const General: cooperative, no acute distress Orientation: alert, awake, oriented x3 HENWV Head: atraumatic, normocephalic Ears: hearing grossly normal bilaterally Resp Effort AND Inspection: normal respiratory effort, able to speak in complete sentences Auscultation: Bilateral: Clear to Auscultation Cardio Rate: regular rate Rhythm: regular rhythm Heart Sounds: S1 normal, S2 normal GI Palpation: soft, no hepatosplenomegaly Musc Musculoskeletal: No muscle weakness Neuro General: alert, awake, oriented x3, moves all extremities, CN's II-XI intact bilaterally Extrem General: pedal edema bilaterally Psych Appearance: grossly normal Mood: congruent mood Affect: normal affect Assessment AND Plan 1. Benign essential HTN I10 Plan Better controlled. Blood pressure in office today is 133/84 mmHg. Continue hydrochlorothiazide 12.5 mg daily. Continue lifestyle modifications. Follow-up in 3 months. Orders Orders: 2. Depression F32.9 Plan Stable. Continue current medications. Follow-up at next visit. 3. Hypokalemia E87.6 Plan Medication induced. Started on potassium chloride 10 mEq daily. Recheck BMP. Continue current medication. Will follow. This note was generated with Ison[employer] dictation software. It may contain incorrect words, spelling, and punctuation that were not noted in checking the note before signing. Orders Orders: Plan Detail Follow Up 3 Months Coding Level of Care Code Off vis,est,level 3 Diagnoses Benign essential HTN I10 Depression F32.9 Hypokalemia E87.6 09/11/17 1304 <Electronically signed by Dior Sanchez MD> Date Dior Sanchez MD Cosigner Signature: Date (if applicable) CC: BASIC METABOLIC PANL Collected: 09/10/2017 Status: F Source: [place] 12:15 PM [facility] REPOSITORY TYPE CODE TESTS RESULT OUT OF REFERENCE UNITS RANGE LAB GLU 74-99 mg/dL High Glucose 106 Result Comment: The [place] Diabetes [employer] (ADA) provides guidance for cutoff values for fasting glucose and random glucose. The ADA defines fasting as no caloric intake for at least 8 hours. Fas ting plasma glucose results between 100 to 125 mg/dL indicate increased risk for diabetes (prediabetes). Fasting plasma glucose results greater than or equal to 126 mg/dL meet the criteria for diagnosis of diabetes. In the absence of unequivocal hyperglycemia, results should be confirmed by repeat testing. In a patient with classic symptoms of hyperglycemia or hyperglycemic crisis, random plasma glucose results greater than or equal to 200 mg/dL meet the criteria for diagnosis of diabetes. Reference: Standards of Medical Care in Diabetes 2016, [place] [employer] Association. Diabetes Care. 2016.39(Suppl 1). LAB BUN 7-21 mg/dL BUN 17 LAB CRET 0.58-0.96 mg/dL Creatinine 0.70 LAB NA 136-144 mmol/L Sodium 143 LAB K 3.7-5.1 mmol/L Potassium 3.7 LAB CL 97-105 mmol/L Chloride 100 LAB CO2 22-30 mmol/L CO2 30 LAB AGAP 9-18 mmol/L Anion Gap 13 LAB CA 8.5-10.2 mg/dL Calcium, Total 10.0 LAB GFRAA eGFR- Amer. >60 LAB GFRNAA . eGFR-All Other Races >60 Result Comment: eGFR (Estimated GFR) Units of measure: mL/min/1.73 meters squared eGFR is derived from the reexpressed MDRD Study equation using the following parameters: serum creatinine, age, gender and race. The creatinine assay has been calibrated to be traceable to IDMS. An eGFR <60 mL/min/1.73m2 for >3 months is consistent with chronic kidney disease. Refer to KDOQI guidelines for clinical interpretation. In patients with unstable renal function, e.g. those with acute kidney injury, the eGFR may not accurately reflect actual GFR. Performed By: #### BMP #### [facility] [address] [place], [place] [address] BASIC METABOLIC Collected: 07/06/2017 Status: F Source: [place] PROFILE (BMP) 8:59 AM [facility] REPOSITORY TYPE CODE TESTS RESULT OUT OF RANGE REFERENCE UNITS LAB L501.0100 70-110 mg/dL High GLU 162 Result Comment: Fasting Glucose result greater than or equal to 126 mg/dL suggests DIABETES MELLITUS per A.D.A. criteria. LAB L501.1000 7-18 mg/dL Normal BUN 15 LAB L501.1100 0.55-1.02 mg/dL Normal CREAT,SERUM 0.71 Result Comment: The validity of the calculated GFR AND GFRAA in patients over 70 years has not been determined. Clinical correlation is essential. LAB L501.1110 >60 mL/min Normal EST GFR 89 Result Comment: Non- GFR Calc LAB L501.1115 >60 mL/min Normal EST GFR - AA 108 Result Comment: GFR Calc LAB L501.1300 10-20 RATIO High BUN/CRE 21.0 LAB L501.2200 8.5-10.1 mg/dL CA Normal 9.6 LAB L501.5300 136-145 mmol/L NA Normal 141 LAB L501.5600 3.5-5.1 mmol/L Low K 3.2 LAB L501.5900 98-107 mmol/L CL Normal 101 LAB L501.6100 21.0-32.0 mmol/L Normal CO2 32.0 LAB L501.6200 5-15 Normal GAP 8 Performed By: #### L500.2500 #### [facility] [address] [facility] [place], [place], [address] PULMONARY VISIT REPORT Observed: 07/01/2017 Status: F Source: [place] 12:17 PM [facility] [place] REPOSITORY [facility]monary Medicine of [address] [place] [address] OFFICE VISIT Date of Service: 05/21/17 MR#: [id number] Acct: [id number] Name: NELSON GOMEZ Rep #: [id number] : 1955 Provider: Aziza Tan Age/Sex: 61/F Location: [facility] Status: Signed Assessment AND Plan 1. CHING (obstructive sleep apnea) G47.33 Status Acute Plan Recent titration study indicates that the patient's apnea is controlled at a pressure support of 15 cm of water with a nasal mask. The patient's device is scheduled to be delivered today. She has been encouraged to contact the office if she has any difficulty with set up. This does seem to be a bit of a high pressure, she has been encouraged to contact the office early if she is not tolerating the pressure. Follow-up with Dr. Campos in 3 months. 2. Cough R05 Status Chronic Plan This patient reports having a cough, that is noticeable in the evening. She does have a significant past of smoking. She will be evaluated for potential COPD by obtaining a complete coronary function test. She will then follow-up with Dr. Campos in 3 months, at which time they can review the test and determine if there are any inhalers that are appropriate. The patient was educated on the fact that this is a baseline PFT and that we will continue to monitor this. Orders Orders: 3. 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 May be appropriate for low-dose CT in the future. Follow-up with Dr. Campos in 3 months. Plan Detail Follow Up 3 Months (DMB) HPI HPI Comments Details: Patient presents to the office today as an initial consultation referral for newly diagnosed obstructive sleep apnea. She is ambulatory, currently on room air and accompanied by her . The patient reports that her primary care physician was concerned about her snoring and sent her for a sleep study. The patient was then set up for a sleep study which she completed and confirmed that she has an AHI of 10 events per hour. The patient reports that she does have symptoms consistent with daytime hypersomnia which consist of daytime fatigue, napping often, admits to catnaps often daily. She does fall asleep easily watching TV. Her reports that he has witnessed periods of apnea. She does report that she has awakened herself gasping for air at times. She also has significant snoring. Has at least 1-2 episodes of nocturia nightly. She does report occasional headaches. She also notices a cough that is worse at night. Pressure support system has been ordered and is pending delivery today. He has never seen a blasting helper in the past. She has never had pulmonary function tests. She is a former smoker. He smoked one half packs from 1970 due to 1998 which gives her greater than a [id number]-[id number] history of smoking. She does report that in 1998 she was able to quit smoking cold turkey. She has never had pneumonia, never been hospitalized for respiratory illnesses. Never been prescribed inhalers. She does report having at least one episode of bronchitis in her history. She also states that she receives at least 2 colds per year. 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 She does report a family history of COPD consisting of her sister and brother, who are both current smokers. Intake Vital Signs05/21/17 Height 5 ft 4 in 05/21/17 Weight: 146 lb Intake Visit Reasons: Sleep problems Flower Picker Required: No DME Vendor: [employer] Accompanied by: Is patient in pain?: No Allergies amoxicillin Allergy (Mild, Verified 05/21/17 14:20) Hives decongestants Allergy (Intermediate, Uncoded 05/21/17 14:20) palpitations Medications calcium carbonate 600 mg calcium (1,500 mg) tablet 600 mg PO ONCE tab 05/14/17 [History Confirmed 05/21/17] cyclobenzaprine 10 mg tablet 10 mg PO TID 05/14/17 [History Confirmed 05/21/17] fluticasone 50 mcg/actuation nasal spray,suspension 2 spray INTRANASAL ONCE g 05/14/17 [History Confirmed 05/21/17] gabapentin 100 mg capsule 200 mg PO QDAY cap 05/14/17 [History Confirmed 05/21/17] methimazole 5 mg tablet 2.5 mg PO QDAY tab 05/14/17 [History Confirmed 05/21/17] venlafaxine ER 37.5 mg capsule,extended release 24 hr 37.5 mg PO QDAY 05/14/17 [History Confirmed 05/21/17] esomeprazole magnesium 20 mg capsule,delayed release 20 mg PO QDAY cap 05/21/17 [History Confirmed 05/21/17] Review of Systems Const CONSTITUTIONAL: Positive stops breathing during sleep and fatigue; negative anorexia, body ache, chills, daytime sleepiness, fever(s), night sweats, oral thrush, weight loss, sleeping in chair, weight loss, weight gain, frequent colds, seasonal allergies, other, headache(s) or orthopnea EETM Ear Nose Throat Mouth: Positive hearing normal; negative hard of hearing, hoarseness, dry mouth in morning, change in vision, itchy eyes, eye pain, swallowing Difficulty, ear pain, nose bleed, headache(s), mouth pain, nasal congestion, nasal discharge, post nasal drip, sinus pain, sinus pressure, sore throat or other Cardio Cardiovascular: Negative chest pain, chest pain at rest, chest pain with activity, irregular heart rhythm, edema, shortness of breath when lying down, palpitations, murmur or other Resp Respiratory: Positive snoring and apnea; negative shortness of breath, pain with cough, wheezing, chest congestion, cough, chest tightness, pain on inspiration, inhalers, increase use of rescue inhalers or other Gastro Gastrointestional: Negative bloody stools, change in appetite, difficulty swallowing, reflux, hematemesis, melena stool, loose stool, constipation or other Genitourinary: Negative blood in urine, nocturia, pain with urination or other Musc Musculoskeletal: Negative body pain, back pain, neck pain or other Skin/Breast Skin/Breast: Negative dry skin, itching, rash, unusual bruising, breast lump or other Neuro Neurological: Negative restless legs, confusion, weakness or other Psych Psychocological: Positive other (depression); negative abnormal sleep pattern, anxiety, thoughts of hurting self/others or hopelessness Lymph Lymphatic: Negative easy bleeding, easy bruising, swollen lymph nodes or other Exam Const Constitutional: Positive conversant, cooperative, in no acute respiratory distress, healthy appearing, well developed, well nourished and good hygiene Head Head: Positive normocephalic and atraumatic; negative cyanosis of lips/distal nose Eyes Eye: Positive clear conjunctiva and nystagmus; negative scleral abnormality Ears Ear: Positive hearing normal and external ears normal; negative hard of hearing Nose Nose: Positive no nasal discharge and external nose normal; negative epistaxis Mouth Mouth: Positive crowded posterior oropharynx, oral mucosae normal, good dentition and no lesions; negative oral thrush present or malodorous breath Mallampati Score: III: Mallampati Score Neck Neck: Positive normal visual inspection, full ROM and trachea midline; negative lymphadenopathy, JVD or tender Chest Wall Chest: Positive normal inspection of the chest and symmetric chest movement; negative increased A/P diameter Resp lung sounds: Positive clear to auscultation, good air exchange, normal expiratory time and normal respiratory effort; negative wheezes, diminished, rhonchi, rales, wheeze present on forced exhalation or dullness to percussion Cardio Cardiac: Positive regular rate, regular rhythm and S2 normal; negative murmur GI GI: Positive normal to inspection and normal bowel sounds; negative distended Genitourinary: Positive deferred Musc Musculoskeletal: Positive steady gait and ROM normal; negative kyphosis or scoliosis Skin Pulmonary Skin Exam: Positive intact; negative rash or lesion Pulses Pulse: Positive pulses normal x4 extremities Extremities Extremities: Positive capillary refill normal; negative clubbing, cyanosis or edema Neuro Neurologic: Positive conversant, no focal neuro deficits, cooperative, normal cognition, normal coordination, normal concentration and understands questions; negative tremor Lymph Lymphatic: Negative lymphadenopathy Psych Appearance: Positive grossly normal, eye contact and well kempt Mental Status: Positive mental status grossly normal Mood: Positive congruent mood Affect: Positive normal affect 05/29/17 1239 <Electronically signed by Aziza RANDLE> Date Aziza RANDLE Cosigner Signature: Date (if applicable) CC: Dior Sanchez MD INTERNAL MEDICINE Observed: 06/19/2017 Status: F Source: [facility] OFFICE VISIT 8:29 AM [facility] [address] [place] [address] OFFICE VISIT Date of Service: 06/17/17 MR#: [id number] Acct: [id number] Name: NELSON GOMEZ Rep #: [id number] : 1955 Provider: Dior Sanchez MD Age/Sex: 61/F Location: [facility] Status: Signed Intake Vital Signs06/17/17 Height 5 ft 4 in 06/17/17 Blood Pressure 147/89 06/17/17 Blood Pressure Location Rt brachial Intake Visit Reasons: 6 WK FU Is patient in pain?: No Allergies amoxicillin Allergy (Mild, Verified 05/21/17 14:20) Hives decongestants Allergy (Intermediate, Uncoded 05/21/17 14:20) palpitations Medications calcium carbonate 600 mg calcium (1,500 mg) tablet 600 mg PO ONCE tab 05/14/17 [History Confirmed 06/17/17] cyclobenzaprine 10 mg tablet 10 mg PO TID 05/14/17 [History Confirmed 06/17/17] fluticasone 50 mcg/actuation nasal spray,suspension 2 spray INTRANASAL ONCE g 05/14/17 [History Confirmed 06/17/17] gabapentin 100 mg capsule 200 mg PO QDAY cap 05/14/17 [History Confirmed 06/17/17] methimazole 5 mg tablet 2.5 mg PO QDAY tab 05/14/17 [History Confirmed 06/17/17] venlafaxine ER 37.5 mg capsule,extended release 24 hr 37.5 mg PO QDAY 05/14/17 [History Confirmed 06/17/17] biotin 1,000 mcg chewable tablet mcg PO 06/17/17 [History Confirmed 06/17/17] blood pressure test kit-medium cuff See Dose Instructions .ROUTE .MEDSUPPLY #1 ea 06/17/17 [Rx Confirmed 06/17/17] cholecalciferol (vitamin D3) 2,000 unit capsule 2,000 unit PO ONCE 06/17/17 [History Confirmed 06/17/17] esomeprazole magnesium 20 mg capsule,delayed release 40 mg PO QDAY cap 06/17/17 [History Confirmed 06/17/17] hydrochlorothiazide 12.5 mg tablet 12.5 mg PO QDAY #60 tab 06/17/17 [Rx Confirmed 06/17/17] PFSH Medical History Low back pain radiating to left lower extremity (Chronic) Tobacco abuse, in remission (Resolved) Cough (Chronic) CHING (obstructive sleep apnea) (Acute) Benign essential HTN (Chronic) Depression (Chronic) Pulmonary embolism (Chronic) Elevated blood pressure reading (Acute) Pneumonia (Acute) Upper respiratory infection, acute (Acute) Breathing-related sleep disorder (Chronic) Bronchitis (Chronic) GERD (gastroesophageal reflux disease) (Chronic) Hyperthyroidism (Chronic) Low back pain (Chronic) Pain in right shoulder (Chronic) Snoring (Chronic) Seizure disorder (Resolved) Surgical History H/O tubal ligation (Resolved) Family History Mother Diabetes Myocardial infarction CVA (cerebral vascular accident) Thyroid disorder Cancer skin Kidney disease Father Myocardial infarction Heart disease Sister Lupus Social History Smoking Status: Former smoker quit date: 06/08/08 pack-years: 56 second hand exposure: No alcohol intake: current alcohol intake frequency: holidays/special occasions only Alcohol type: beer substance use type: does not use what type of physical activity do you participate in: walking, yoga frequency: 1-2 times per week HPI 6 WK FU: Chief Complaint: follow-up visit Details: NELSON GOMEZ, is a 61yo F who presents to the office today for follow-up of chronic medical conditions. She has no acute complaints at this time. Since the last visit she had followed up with pulmonary and was started on CPAP. She is tolerating this well. She also had symptoms of severe reflux however since starting the CPAP symptoms are said to be better controlled. She is also on omeprazole. On her last visit she was started on gabapentin and Flexeril for low back pain. Symptoms are said to also be better since starting this. She has reduced radiculopathy. Blood pressure still noted to be elevated at this visit. Blood pressure today is 147/89 mmHg. She reports a prior history of hypertension and at that time was started on hydrochlorothiazide however she discontinued it after she had normal blood pressure for some time. She however denies chest pain, shortness of breath, palpitations or worsening lower extremity swelling. ROS Const Constitutional: No weight change, body ache, chills, fatigue, sleep problems, fever(s), change in appetite, snoring, weakness, frequent falls, headache(s) or excessive sweating Eyes Eyes: No change in vision, eye pain, light sensitivity or blurry vision ENT ENT: No headache(s), abnormal hearing, ear pain, tinnitus, nasal congestion, sore throat or neck pain Resp Respiratory: No snoring, cough, shortness of breath or wheezing Cardio Cardiology: No excessive sweating, chest pain at rest, chest pain with exertion, shortness of breath, dyspnea on exertion, palpitations, orthopnea or lightheadedness Gastro GI: No abdominal pain, change in bowel habits, constipation, diarrhea, vomiting, nausea/dyspepsia or cramping Musc Musculoskeletal: No neck pain, abnormal walking, joint pain, back pain, limited range of motion, numbness or tingling Skin Skin: No redness, dry skin, itching, lesions, wounds or rash Neuro Neurology: No weakness, frequent falls, headache(s), abnormal hearing, abnormal walking, numbness, tingling, abnormal speech, dizziness or memory loss Psych Psychiatric: No change in appetite, No memory loss, No anxiety, No depression, No Thoughts of harming yourself/Others Endo Endocrine: No fatigue, excessive sweating, cold intolerance, increased thirst/drinking, heat intolerance, flushing or increased hunger Aller/Imm Allergy/Immunologic: No wheezing, itchy eyes, hives or seasonal allergy symptoms Jose Antonio/Lymp Hematologic/Lymphatic: No easy bleeding, easy bruising or enlarged lymph nodes Exam Const General: cooperative, healthy appearing, no acute distress, well developed Orientation: alert, awake, oriented x3 HENMT Head: atraumatic, normocephalic, normal to inspection Ears: hearing grossly normal bilaterally Eyes Eyelids: eyelids normal Conjunctivae: conjunctivae normal Pupils: PERRL Resp Effort AND Inspection: normal respiratory effort, able to speak in complete sentences Auscultation: Bilateral: Clear to Auscultation Cardio Rate: regular rate Rhythm: regular rhythm Heart Sounds: S1 normal, S2 normal GI Inspection: normal to inspection Palpation: soft, no hepatosplenomegaly Neuro General: CN's II-XI intact bilaterally, alert, awake, oriented x3 Extrem General: pedal edema Other: Trace bilateral pitting edema extending to mid diaz. Psych Appearance: grossly normal Mood: congruent mood Affect: normal affect Assessment AND Plan 1. Benign essential HTN I10 Plan Poorly controlled by lifestyle modification. Will start hydrochlorothiazide 12.5 mg daily. BMP in 2 weeks. Continue lifestyle modification. Follow-up in 3 months. Orders Orders: 2. Low back pain radiating to left lower extremity M54.5 Plan Resolved. Continue gabapentin. Continue exercise. Follow-up at next visit. 3. GERD (gastroesophageal reflux disease) K21.9 Plan Symptoms are said to be much improved since starting CPAP and also increasing the dose of omeprazole. Continue current medication. Continue lifestyle modification. Follow-up at next visit. 4. CHING (obstructive sleep apnea) G47.33 Plan Tolerating CPAP well. Continue current management. This note was generated with Ison[employer] dictation software. It may contain incorrect words, spelling, and punctuation that were not noted in checking the note before signing. Plan Detail Other Medications New: Changed: Follow Up 3 Months Coding Level of Care Code Off vis,est,level 3 Diagnoses Benign essential HTN I10 Low back pain radiating to left lower extremity M54.5 GERD (gastroesophageal reflux disease) K21.9 CHING (obstructive sleep apnea) G47.33 06/19/17 0829 <Electronically signed by Dior Sanchez MD> Date Dior Sanchez MD Cosigner Signature: Date (if applicable) CC: ALLERGIES ALLERGIES DATE TYPE / CODE NAME / CODE REACTION SEVERITY SOURCE Drug amoxicillin/F0060 Hives DE [place] 8 Allergy/809269833 23727(RXNORM) [facility] (SNOMED CT) Hospital Repository Miscellaneous decongestants PALPITATIONS MO [place] 8 Allergy/[id number] [facility] ([facility] Hospital Repository ENCOUNTERS ENCOUNTERS ADMIT/DISCHARGE ACCOUNT ADMITTING ENCOUNTER LOCATION SOURCE NUMBER CLASS 05/06/2018/ [id number] Ambulatory BMSBuilding:B [place] 8 4 [facility] Repository 05/06/2018 [id number] Ambulatory Kevan K[place] 1 [facility] ing:LAB Repository 04/22/2018 [id number] Ambulatory Kevan [place] 6 [facility] ing:OPBI Repository 03/18/2018/ [id number] Ambulatory BMSBuilding:B [place] 8 [facility] Repository 12/16/2017 [id number] Ambulatory Kevan K[place] 2 [facility] ing:MTLAB Repository 12/10/2017/ [id number] Ambulatory BMSBuilding:B [place] 8 1 [facility] Repository 09/28/2017 [id number] Ambulatory BMSBuilding:B [place] 7 [facility] Repository 09/09/2017/ [id number] Ambulatory BMSBuilding:B [place] 8 3 [facility] Repository 07/30/2017 [id number] Ambulatory BMSBuilding:B [place] 8 [facility] [place] [place] Repository 07/06/2017 [id number] Ambulatory [place] 0 [facility] ing:MTLAB Repository 06/18/2017 [id number] Ambulatory [place] 9 [facility] ing:PSN Repository 06/17/2017/ [id number] Ambulatory BMSBuilding:B [place] 7 [facility] Repository 05/21/2017/ [id number] Ambulatory BMSBuilding:B [place] 1 [facility] [place] [place] Repository PAYERS PAYERS ENCOUNTER GUARANTOR PAYER SUBSCRIBER SOURCE 05/06/2018 NELSON Dietz Primary NELSONBALJIT Mathur [id number] Insurance[facility]ANTHEMPolic [facility] y Number: [id number] [id number] Repository [address]Lva: (330) ve Date:9745-60-19EK [phone] () [address], [place] [address]EB: 05/06/2018 Secondary NOT GIVENUNK [place] Insurance:SELF PAY [facility] Number: Effective Repository Date:2018-05-06 05/06/2018 NELSON Mirela Primary NELSON Mathur [id number] Insurance:ANTHEMPolic [facility]: [facility] y Number: [id number] [id number] Repository [address]Ver: (330) ve Date:1789-57-48ZF [phone] () [address], [place] [address]TY: 05/06/2018 Secondary NOT GIVENUNK [place] Insurance:SELF PAY [facility] Number: Effective Repository Date:2018-05-06 04/22/2018 NELSON Dietz Primary NELSON Mathur [id number] Insurance:ANTHEMPolic MCCOLLOUGHDOB: [facility] KORINA BENITEZ y Number: [id number] [id number] Repository [address]Qdl: (330) ve Date:4210-44-21WZ [phone] () [address] [place] [address]PY: 04/22/2018 Secondary NOT GIVENUNK [place] Insurance:SELF PAY [facility] Number: Effective Repository Date:2018-01-27 03/18/2018 NELSON Dietz Primary NELSON Mathur [id number] Insurance:ANTHEMPolic MCCOLLOUGHDOB: [facility] KORINA BENITEZ y Number: [id number] [id number] Repository [address]Lvh: (330) ve Date:7179-37-12HU [phone] () [address] [place] [address]RG: 03/18/2018 Secondary NOT GIVENUNK [place] Insurance:SELF PAY [facility] Number: Effective Repository Date:2018-03-18 12/16/2017 NELSON Dietz Primary NELSON Mathur [id number] Insurance:ANTHEMPolic MCCOLLOUGHDOB: [facility] KORINA BENITEZ y Number: [id number] [id number] Repository [address]Qbx: (330) ve Date:3581-71-49CP [phone] () [address], [place] [address]LR: 12/16/2017 Secondary NOT GIVENUNK [place] Insurance:SELF PAY [facility] Number: Effective Repository Date:2017-12-16 12/10/2017 NELSON Mathur [id number] Insurance:ANTHEMPolic MCCOLLOUGHDOB: [facility] KORINA DEJESUS y Number: [id number] [id number] Repository [address]Gyp: (330) ve Date:2673-16-18KX [phone] () [address], [place] [address]SS: 12/10/2017 Secondary NOT GIVENUNK [place] Insurance:SELF PAY [facility] Number: Effective Repository Date:2017-12-10 09/28/2017 NELSON Primary NELSON Mathur [id number] Insurance:ANTHEMPolic MCCOLLOUGHDOB: [address] y Number: [id number] [id number] Repository [address]Aia: (330) ve Date:7974-75-05ZC [phone] () [address], [place] [address]GI: 09/28/2017 Secondary NOT GIVENUNK [place] Insurance:SELF PAY [facility] Number: Effective Repository Date:2017-09-28 09/09/2017 NELSON Primary NELSON Mathur [id number] Insurance:ANTHEMPolic MCCOLLOUGHDOB: [address] y Number: [id number] [id number] Repository [address]Vhu: (330) ve Date:2998-03-19LT [phone] () [address]FZM, [place] [address]SJ: 09/09/2017 Secondary NOT GIVENUNK [place] Insurance:SELF PAY [facility] Number: Effective Repository Date:2017-09-09 07/30/2017 NELSON Primary NELSON Mathur [id number] Insurance:ANTHEMPolic MCCOLLOUGHDOB: [address] y Number: [id number] [id number] Repository [address]Ngu: (330) ve Date:5406-40-10NN [phone] () [address]QGR[address], [place] [address]OE: 07/30/2017 Secondary NOT GIVENUNK [place] Insurance:SELF PAY [facility] Number: Effective Repository Date:2017-05-21 07/06/2017 NELSON Primary NELSON Mathur [id number] Insurance:ANTHEMPolic MCCOLLOUGHDOB: [address] y Number: [id number] [id number] Repository [address]Wuo: (330) ve Date:9436-11-14PW [phone] () [address] [place] [address]MR: 07/06/2017 Secondary NOT GIVENUNK [place] Insurance:SELF PAY [facility] Number: Effective Repository Date:2017-07-06 06/18/2017 NELSON Primary NELSON [id number] Insurance:ANTHEMPolic MCCOLLOUGHDOB: [address] y Number: [id number] [id number] Repository [address]Mxn: (330) ve Date:1264-88-39XE [phone] () [address]MWNKWSZ, [place] [address]GQ: 06/18/2017 Secondary NOT GIVENUNK [place] Insurance:SELF PAY [facility] Number: Effective Repository Date:2017-05-21 06/17/2017 NELSON Primary NELSON Mathur [id number] Insurance:ANTHEMPolic MCCOLLOUGHDOB: [address] y Number: [id number] [id number] Repository [address]Mfo: (330) ve Date:0617-87-47XG [phone] () [address]ZFHZOQN, [place] [address]PD: 06/17/2017 Secondary NOT GIVENUNK [place] Insurance:SELF PAY [facility] Number: Effective Repository Date:2017-06-17 05/21/2017 NELSON Primary NELSON Mathur [id number] Insurance:ANTHEMPolic MCCOLLOUGHDOB: [address] y Number: [id number] [id number] Repository [address]Mwp: (488) ve Date:4183-73-15XK [phone] () [address]KU[address], [place] [address]MR: 05/21/2017 Secondary NOT GIVENUNK [place] Insurance:SELF PAY [facility]: Effective Repository Date:2017-05-09
== END ==
PROVIDERS: Family Provider Internal Medicine; PCP Internal Medicine; Referring Provider Nurse Practitioner; Visit Provider Nurse Practitioner
DX: I10 Essential (primary) hypertension (principal); E05.90 Thyrotoxicosis, unspecified without thyrotoxic crisis or storm
CPT/HCPCS: 36415; 80053; 84439; 84443; 84481

== ENCOUNTER → 2018-07-08 08:44 | Outpatient (CLI) | payer BC, SELFPAY ==
[2018-06-10 10:37] VITALS: BMI 27.1
[2018-06-24 13:47] VITALS: BMI 26.9
--- NOTE | 2018-07-08 08:46 | US_ITS ---
STUDY: THYROID ULTRASOUND REASON FOR EXAM: Female, 63 years old. Hyperthyroidism TECHNIQUE: Ultrasound evaluation of the thyroid was performed with real-time and static jean-baptiste-scale imaging. COMPARISON: Prior study of 04/02/2017 FINDINGS: RIGHT LOBE: The right lobe of the thyroid gland measures 4.4 x 1.6 x 1.9 cm. There is a heterogeneous echotexture. 3 right thyroid lobe nodules are identified. The first is located in the inferior pole and measures 2.2 x 1.6 x 1.5 cm. Internal vascularity is noted. This is stable in the interval. A second complex nodule is seen in the midpole measuring 1.2 x 0.9 x 0.8 cm. A third complex nodule is seen in the superior pole measuring 1.6 x 1.3 x 0.8 cm. LEFT LOBE: The left lobe of the thyroid gland measures 4.6 x 1.4 x 1.0 cm. There is a heterogeneous echotexture. There is a hypoechoic nodule with central calcification of the upper pole of the left thyroid lobe measuring 1.0 x 0.8 x 0.7 cm. This nodule demonstrates minimal peripheral vascularity. ISTHMUS: The isthmus measures 3 mm . The regional lymph nodes are normal. US/Thyroid IMPRESSION: Bilateral nodules as detailed above. The largest measured nodules appear stable in the interval. Electronically Signed: Antonio Mcmanus MD at 16:52 EST , Service support ,
[2018-07-08 10:14] LABS: Absolute Lymphocyte Count 1.72 X10^3/ul (0.83-4.51); Absolute Neutrophil Count 3.6 X10^3/uL (2.0-7.7); Basophil# 0.01 X10^3/uL; Basophil% 0.2 % (0-1); Eosinophil# 0.13 X10^3/uL; Eosinophils% 2.2 % (0-5); Hematocrit 41.3 % (37-47); Hemoglobin 13.2 g/dl (12.0-15.0); Lymphocyte # 1.72 X10^3/ul (4.0); Lymphocyte % 28.7 % (19-41); Mean Corpuscular Volume 87.5 fL (81-99); Mean Platelet Vol. 11.1 fl (6.2-12.0); Monocyte# 0.55 X10^3/uL; Monocyte% 9.2 % (0-10); Neutrophil # 3.58 X10^3/uL (2.7-7.7); Neutrophil % 59.5 % (47-70); POSITIVE COUNT NO; POSITIVE DIFFERENTIAL NO; POSITIVE MORPHOLOGY NO; Platelet Count 197 K/mm3 (150-450); RBC Distribution Width CV 13.5 % (11.6-14.6); RBC Distribution Width SD 42.1 fl (35.1-43.9); Red Blood Count 4.72 M/mm3 (4.2-5.4)
== END ==
PROVIDERS: Family Provider Internal Medicine; PCP Internal Medicine; Referring Provider Nurse Practitioner; Visit Provider Nurse Practitioner
DX: E05.90 Thyrotoxicosis, unspecified without thyrotoxic crisis or storm (principal)
CPT/HCPCS: 36415; 76536; 85025

== ENCOUNTER → 2018-12-30 11:07 | Outpatient (CLI) | payer BC, SELFPAY ==
[2018-12-23 10:32] VITALS: BMI 30.2
[2018-12-30 12:59] LABS: Anion Gap 7 (5-15); BUN 17 mg/dL (7-18); BUN/Creat Ratio 23.3 RATIO (10-20); Calcium,Total 9.9 mg/dL (8.5-10.1); Chloride 102 mmol/L (98-107); Cholesterol 158 mg/dL (200); Creatinine, Serum 0.73 mg/dL (0.55-1.02); EST Glomerular Filtration Rate 86 mL/min (>60); Est Glom Filt Rate - Afr Amer 104 mL/min (>60); Glucose 81 mg/dL (74-106); High Density Lipoprotein 57 mg/dL; Sodium Level 143 mmol/L (136-145); Triglycerides 133 mg/dL; Very Low Density Lipoprotein 27 mg/dL (5-40)
== END ==
PROVIDERS: Family Provider Internal Medicine; PCP Internal Medicine; Visit Provider Internal Medicine
DX: I10 Essential (primary) hypertension (principal)
CPT/HCPCS: 36415; 80048; 80061

== ENCOUNTER 2019-01-17 16:30 | Outpatient (RCR) | payer BC, SELFPAY ==
[2018-12-23 10:32] VITALS: BMI 30.2
--- NOTE | 2019-01-06 17:58 | HP.PTEVAL ---
Patient's Visit Information NELSON GOMEZ is a 63 year old F referred to Physical Therapy by Osmany Morgan NP-C with a diagnosis of STRAIN OF MUSCLES ,FASCIA AND TENDOND OF LOWER BACK ,SCITAICA. Date of Evaluation: 01/06/19 Physical Therapist: Hasmukh Bishop, PT, Cert MDT, OCS - Visit Plan Frequency: 2x /Week Duration: 4 Weeks Plan: PT INTERVETIONS DLS ABD/BACK ,POSTURAL EX'S MODALTIES ,FLEXABILITY - Subjective Findings: This 63 y/o male presents to physical therapy with LBP with radicular in legs. Patient has had LBP for many years ,symptoms become worse past 2 weeks . Patient located symmtrical LBP and anterior thighs. Symptoms described as ache. Aggravating factors bending,lifting standing,walking. Alleviating factors sitting. Patient pain affect sleeping. Coughing/sneeing-. Bowel/bladder -. Denies parathesia/tingling. Patient was provided with steriods,muscle relaxers. Patient pain affects job demands and housework tasks, Patient seen chiropractor. patient pain affects QOL.Patient has h/o sciolosis. VOCATION: [employer]. SOCIAL: - Pain Bilateral Back Pain Intensity (Out of 10): 2 Pain Intensity Range: 10 - Objective POSTURE : mild posture ,pelvis align assymmtries,left leg shorter. GAIT: reciprocal pattern. NEURO: denies parathesia/tingling,reflexes L3-4,L4-5,L5-S1 2/3. MMT: quads/hams 4/5 ,hip flexion 4-/5,ankle 5/5. LUMBAR ROM: flexion min loss ,extension min loss,side glides mod loss right-pain,left min loss. FLEXABLITY: hams min loss. MUSCULAR ENDURANCE: abdnominals unable to hold - Special Tests L/S Slump test left side: Negative L/S Slump test right side: Negative L/S Left Straight Leg Raise: Negative L/S Right Straight Leg Raise: Negative Lumbar Standing: Flexion - Mechanical Response: No effect Lumbar Standing: Flexion - Symptoms During Testing: No effect Lumbar Standing: Flexion - Symptoms After Testing: No effect Lumbar Standing: Extension - Mechanical Response: No effect Lumbar Standing: Extension - Symptoms During Testing: Increases Lumbar Standing: Extension - Symptoms After Testing: No worse Lumbar Standing: Right Side Glides - Mechanical Response: No effect Lumbar Standing: Right Side Alpine - Symptoms During Testing: Increases Lumbar Standing: Right Side Alpine - Symptoms After Testing: No worse Lumbar Standing: Left Side Alpine - Mechanical Response: No effect Lumbar Standing: Left Side Alpine - Symptoms During Testing: No effect Lumbar Standing: Left Side Alpine - Symptoms After Testing: No effect - Goals Goal 1:: Independant with HEP. Goal Time Frame: 4-6 Weeks Goal 2:: Independant with posture /body mechanics Goal Time Frame: 4-6 Weeks Goal 3:: Decrease lumbar pain by 50% or greater to improve function and job demands. Goal Time Frame: 4-6 Weeks Goal 4:: Patient to improve lumbar ROM for function of recovery Goal Time Frame: 4-6 Weeks Goal 5:: Patient to improve back owestry score by 5 points to improve QOL. Goal Time Frame: 4-6 Weeks - Rehabilitation Potential Physical Therapy Diagnosis: This patient has lumbar pain with radicular symptoms with possible derrangement above knee with decrease ROM ,pain ,decrease core strength,impairs alison with walking and standing,thus benifit from skilled PT. Rehabilitation Potential: Good - Anticipated Interventions Patient/Client Instruction: Educate patient on: Condition, Plan of Care For the Purpose of:: To decrease pain, To increase ROM, To improve ability to perform ADL's, To increase tolerance to activity/condition/position, To improve ability of physical actions for home/community/work/leisure, To improve health of tissue, To decrease soft tissue restriction, To improve health and function, To improve ability to perform tasks related to life management Therapeutic Exercise to Include: Strength training, Body mechanics, Postural training, Flexibilty training, Dynamic Lumbar Stabilization For the Purpose of:: To decrease pain, To increase ROM, To improve muscle performance and motor function, To improve ability to perform ADL's, To improve ability of physical actions for home/community/work/leisure, To improve health of tissue, To decrease soft tissue restriction, To increase flexibility/ROM, To improve ability to perform tasks related to life management TENS: Yes IF ES: Yes Cryotherapy (ice pack, ice massage): Yes Thermo therapy (hot pack): Yes Ultrasound (thermal/non thermal): Yes For the Purpose of:: To decrease pain, To increase ROM, To improve nutrient delivery to tissue, To increase oxygenation perfusion, To improve health of tissue, To decrease soft tissue restriction Thank you for the opportunity to evaluate your patient. For Medicare and Medicare HMO plans, please review the plan of care and approve it. It will need to be FAXED BACK to us at [phone] for Medicare purposes. For Medicare only, by signing this I certify the plan of care. Please let me know if there are questions or concerns regarding this plan of care. Physician Signature: Date:
--- NOTE | 2019-03-24 12:16 | HP.PT.NRP ---
HP - Discharge Summary (1) - Patient Information NELSON GOMEZ was seen in my office for initial evaluation on 01/06/19. The following Plan of Care was established for this patient: Initial Frequency: 2x /Week Initial Duration: 4 Weeks - Anticipated Interventions Patient/Client Instruction: Educate patient on: Condition, Plan of Care For the Purpose of:: To decrease pain, To increase ROM, To improve ability to perform ADL's, To increase tolerance to activity/condition/position, To improve ability of physical actions for home/community/work/leisure, To improve health of tissue, To decrease soft tissue restriction, To improve health and function, To improve ability to perform tasks related to life management Therapeutic Exercise to Include: Strength training, Body mechanics, Postural training, Flexibilty training, Dynamic Lumbar Stabilization For the Purpose of:: To decrease pain, To increase ROM, To improve muscle performance and motor function, To improve ability to perform ADL's, To improve ability of physical actions for home/community/work/leisure, To improve health of tissue, To decrease soft tissue restriction, To increase flexibility/ROM, To improve ability to perform tasks related to life management TENS: Yes IF ES: Yes Cryotherapy (ice pack, ice massage): Yes Thermo therapy (hot pack): Yes Ultrasound (thermal/non thermal): Yes For the Purpose of:: To decrease pain, To increase ROM, To improve nutrient delivery to tissue, To increase oxygenation perfusion, To improve health of tissue, To decrease soft tissue restriction This patient was last seen in our office . Pertinent comments regarding their Physical therapy will appear below: Patient seen for PT for lumbar pain focusing on DLS abd/back,postural ex's for HEP. At this point I will be discontinuing this patient from physical therapy. I would be happy to see this patient again in the future if found appropriate by the physician. Thank you! Hasmukh Bishop, PT, Cert MDT, OCS
== END 2019-01-17 19:00 | disposition home or self-care (01) ==
LOC: PT 16:30
PROVIDERS: Family Provider Internal Medicine; PCP Internal Medicine; Referring Provider Nurse Practitioner Family; Visit Provider Nurse Practitioner Family
DX: S39.012D Strain of muscle, fascia and tendon of lower back, subsequent encounter (principal); M54.31 Sciatica, right side
CPT/HCPCS: 97110; 97162

== ENCOUNTER → 2019-02-04 16:35 | Outpatient (CLI) | payer BC, SELFPAY ==
[2019-01-20 14:59] VITALS: BMI 26.4
--- NOTE | 2019-02-04 16:37 | CT_ITS ---
STUDY: LOW DOSE CT LUNG CANCER SCREENING REASON FOR EXAM: Female, 63 years old. 40 pack-year intermittent smoking history. RADIATION DOSAGE (If Supplied By Facility): CTDIvol = ( 2.55 ) mGy, DLP = ( 82.32 ) mGycm TECHNIQUE: No contrast was administered. Low dose technique was utilized (average mAS-38 and kVp 120). 1.25 mm axial source images with a slice interval of 1.25-mm were reconstructed in lung windows. 2.5 mm axial source images with a slice interval of 2.5-mm were reconstructed in lung windows. 5.0 mm axial source images with a slice interval of 5.0-mm were reconstructed in soft tissue windows. Nodule measured using lung windows on PACS and/or independent workstation with automated measurement of minimum and maximum diameter. Nodule measurement reported as average diameter rounded to the nearest whole number. Growth is defined as an increase ins size of greater than 1.5 mm. COMPARISON: None. NODULES: Total lung nodules (excluding granulomas): 0 Emphysema: None Endobronchial lesion: None Aorta: There is mild atherosclerotic changes and tortuosity of the thoracic aorta without aneurysm. Coronary arteries: Normal Heart: Normal in size Pulmonary artery: Normal Mediastinal nodes: None Other chest and abdominal findings: Large retrocardiac hiatal hernia. There are minimal degenerative changes of the thoracic spine. CT/Low Dose CT Lung Screening IMPRESSION: Lung-RADS category 1 - Continue annual screening with LDCT in 12 months. IMPORTANT NOTES FOR USE: ACR Lung-RADS Version 1.0 Assessment Categories Release Date: October 03, 2013 Category: Coded 0-4 bases on nodule(s) with highest degree of suspicion. Negative screen is defined as categories 1 and 2; a positive screen is defined as categories 3 and 4. Category 3 and 4A nodules that are unchanged on interval CT should be coded as category 2, and individuals returned to screening in 12 months. Category 4X: Category 3 or 4 nodules with additional imaging findings that increase the suspicion of lung cancer, such as spiculation, GGN that doubles in size in 1 year, enlarged lymph notes, etc. Category Modifiers: S (significant finding unrelated to lung cancer) and C (prior history of treated lung cancer) may be added to the 0-4 Lung-RADS Electronically Signed: Roman Byrd DO at 17:50 EDT Tel [phone], Service support ,
== END ==
PROVIDERS: Family Provider Internal Medicine; PCP Internal Medicine; Referring Provider Internal Medicine; Visit Provider Internal Medicine
DX: Z87.891 Personal history of nicotine dependence (principal)
CPT/HCPCS: G0297

== ENCOUNTER → 2019-03-23 11:55 | Outpatient (CLI) | payer BC, SELFPAY ==
[2019-01-20 14:59] VITALS: BMI 26.4
[2019-03-23 14:49] LABS: ALB/GLOB Ratio 0.9 RATIO (0.9-2.4); AST(SGOT) 20 U/L (15-37); Alanine Aminotransfer ALT/SGPT 37 U/L (13-56); Albumin, Serum 3.6 g/dL (3.2-5.0); Alkaline Phosphatase 98 U/L (45-117); Anion Gap 6 (5-15); BUN 20 mg/dL (7-18); BUN/Creat Ratio 28.6 RATIO (10-20); Calcium,Total 9.7 mg/dL (8.5-10.1); Chloride 104 mmol/L (98-107); EST Glomerular Filtration Rate 90 mL/min (>60); Est Glom Filt Rate - Afr Amer 109 mL/min (>60); Free T3 2.6 pg/mL (2.18-3.98); Globulin 3.9 g/dL (2.2-4.2); Glucose 118 mg/dL (74-106); Protein, Total 7.5 g/dL (6.4-8.2); Sodium Level 141 mmol/L (136-145); T4 Free Direct 0.82 ng/dL (0.76-1.46); Thyroid Stim Hormone (TSH) 1.66 uIU/mL (0.358-3.74)
== END ==
PROVIDERS: Family Provider Internal Medicine; PCP Internal Medicine; Visit Provider Nurse Practitioner
DX: E05.90 Thyrotoxicosis, unspecified without thyrotoxic crisis or storm (principal)
CPT/HCPCS: 36415; 80053; 84439; 84443; 84481

== ENCOUNTER → 2019-04-28 09:00 | Outpatient (CLI) | payer BC, SELFPAY ==
[2019-01-20 14:59] VITALS: BMI 26.4
[2019-04-14 10:12] VITALS: BMI 26.1
--- NOTE | 2019-04-28 09:36 | BI_ITS ---
MAMMOGRAPHY - BILATERAL SCREENING REASON FOR EXAM: Female, 63 years old. Routine annual screening examination. PERTINENT HISTORY: Non-contributory. TECHNIQUE: Digital bilateral breast arnulfo (3D mammographic acquisition) in the CC and MLO projections. 2-D mediolateral oblique (MLO) and craniocaudad (CC) views of both breasts were obtained. CAD: Full Field Digital Mammography with Computer Added Detection was performed. COMPARISON: Comparison is made with prior examination dated April 22, 2018 and April 16, 2017. FINDINGS: Breast Composition: The breasts are extremely dense, which lowers the sensitivity of mammography. There are no dominant masses or suspicious calcifications. Stable small benign-appearing bilateral axillary lymph nodes. No other significant abnormalities are identified. There has been no significant change since the prior study. BI/SCREEN MAMM (CAD) W/ARNULFO BILAT IMPRESSION: Stable bilateral screening mammogram. Yearly follow-up mammogram recommended. (A) ASSESSMENT CATEGORY: BIRADS Category 2: Benign. A letter regarding these results will be sent to the patient by the facility within 30 days. Approximately 10% of breast cancers are not detected by mammography. A normal mammogram should not delay biopsy of a clinically suspicious abnormality. [id number] Electronically Signed: Nick Rojo, at 11:09 EST , Service support ,
[2019-04-28 12:45] LABS: Anion Gap 5 (5-15); BUN 23 mg/dL (7-18); BUN/Creat Ratio 34.3 RATIO (10-20); Calcium,Total 10.3 mg/dL (8.5-10.1); Chloride 104 mmol/L (98-107); Creatinine, Serum 0.67 mg/dL (0.55-1.02); EST Glomerular Filtration Rate 95 mL/min (>60); Est Glom Filt Rate - Afr Amer 115 mL/min (>60); Glucose 98 mg/dL (74-106); Potassium 3.9 mmol/L (3.5-5.1); Sodium Level 141 mmol/L (136-145)
== END ==
PROVIDERS: Nurse Practitioner Family; Family Provider Internal Medicine; PCP Internal Medicine; Referring Provider Obstetrics & Gynecology; Visit Provider Obstetrics & Gynecology
DX: Z12.31 Encounter for screening mammogram for malignant neoplasm of breast (principal); I10 Essential (primary) hypertension
CPT/HCPCS: 36415; 77063; 77067; 80048

== ENCOUNTER → 2019-07-14 10:33 | Outpatient (CLI) | payer BC, SELFPAY ==
[2019-07-14 10:06] VITALS: BMI 25.2
[2019-07-14 12:50] LABS: Microalbumin,Random Urine 13.1 mg/L (NO RANGE EST.); Microalbumin:Creatinine Ratio 6.9 mg/g CRE (<30 mg/g CRE)
[2019-07-14 12:50] LABS: Anion Gap 3 (5-15); BUN 18 mg/dL (7-18); BUN/Creat Ratio 23.5 RATIO (10-20); Calcium,Total 10.7 mg/dL (8.5-10.1); Chloride 106 mmol/L (98-107); Creatinine, Serum 0.76 mg/dL (0.55-1.02); EST Glomerular Filtration Rate 81 mL/min (>60); Est Glom Filt Rate - Afr Amer 98 mL/min (>60); Glucose 91 mg/dL (74-106); Potassium 3.8 mmol/L (3.5-5.1); Sodium Level 142 mmol/L (136-145)
== END ==
PROVIDERS: PCP Internal Medicine; Visit Provider Nurse Practitioner Family
DX: E11.9 Type 2 diabetes mellitus without complications (principal)
CPT/HCPCS: 36415; 80048; 82043; 82570

== ENCOUNTER 2019-08-18 10:00 | Outpatient (RCR) | payer OTHER, SELFPAY ==
[2019-07-14 10:06] VITALS: BMI 25.2
== END 2019-09-06 23:59 ==
LOC: DC 10:00
PROVIDERS: PCP Internal Medicine; Visit Provider Nurse Practitioner Family
DX: Z71.3 Dietary counseling and surveillance (principal); E11.9 Type 2 diabetes mellitus without complications
CPT/HCPCS: 97802; G0108

== ENCOUNTER 2019-09-14 09:30 | Outpatient (RCR) | payer OTHER, SELFPAY ==
[2019-07-14 10:06] VITALS: BMI 25.2
== END 2019-09-14 23:59 | disposition home or self-care (01) ==
LOC: DC 09:30
PROVIDERS: PCP Internal Medicine; Visit Provider Nurse Practitioner Family
DX: Z71.3 Dietary counseling and surveillance (principal); E11.9 Type 2 diabetes mellitus without complications
CPT/HCPCS: 97803; G0108

== ENCOUNTER → 2019-10-14 | Outpatient (CLI) | payer OTHER, SELFPAY ==
[2019-10-14 10:00] VITALS: BMI 25.2
[2019-10-14 13:01] LABS: Vitamin D,25 Hydroxy 69.9 ng/mL
[2019-10-14 13:07] LABS: Calcium,Total 10.6 mg/dL (8.5-10.1); T4 Free Direct 0.93 ng/dL (0.76-1.46); Thyroid Stim Hormone (TSH) 1.02 uIU/mL (0.358-3.74)
== END | disposition home or self-care (01) ==
LOC: LABSPEC 12:12
PROVIDERS: PCP Internal Medicine; Referring Provider Internal Medicine Endocrinology, Diabetes & Metabolism; Visit Provider Internal Medicine Endocrinology, Diabetes & Metabolism
DX: E07.9 Disorder of thyroid, unspecified (principal); E83.52 Hypercalcemia
CPT/HCPCS: 82306; 82310; 84439; 84443; 84481

== ENCOUNTER → 2019-10-18 13:14 | Outpatient (CLI) | payer OTHER, SELFPAY ==
[2019-10-14 10:00] VITALS: BMI 25.2
[2019-10-18 15:00] LABS: PTHIN 54.1 pg/mL (18.4-80.1)
== END ==
PROVIDERS: PCP Internal Medicine; Referring Provider Internal Medicine Endocrinology, Diabetes & Metabolism; Visit Provider Internal Medicine Endocrinology, Diabetes & Metabolism
DX: E07.9 Disorder of thyroid, unspecified (principal); E83.52 Hypercalcemia
CPT/HCPCS: 36415; 83970

== ENCOUNTER → 2019-11-01 09:34 | Outpatient (CLI) | payer OTHER, SELFPAY ==
[2019-10-14 10:00] VITALS: BMI 25.2
--- NOTE | 2019-11-01 09:38 | BD_ITS ---
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 COMPARISON: None. FINDINGS: Lumbar Spine (L1-L4): g/cm2 (0.997) / T-score (-1.5) / Z-score (-0.2) Findings are suggestive of osteopenia with a low fracture risk. Left Femur Total: g/cm2 (0.907) / T-score (-0.8) / Z-score (0.2) Left Femoral Neck: g/cm2 (0.951) / T-score (-0.6) / Z-score (0.7) Right Femur Total: g/cm2 (0.992) / T-score (-0.1) / Z-score (0.9) Right Femoral Neck: g/cm2 (1.015) / T-score (-0.2) / Z-score (1.2) BD/Dexa Bone Density Study IMPRESSION: The patient is considered osteopenic as outlined below according to World Miles Organization (WHO) criteria with a low fracture risk. Reference Information: The T-score is the number of standard deviations above or below the standard which is normal for young adults at their peak bone mineral density. The World Health Organization (WHO) interprets the T-scores as follows: Above -1 Normal bone density Between -1 and -2.5 Osteopenia Equal to / or below -2.5 Osteoporosis As a practical clinical guideline, osteopenia may be graded as follows: Mild -1 through -1.5 Moderate -1.6 through -2.0 Severe -2.1 through -2.4 The Z-score is the number of standard deviations above or below age-matched controls. A Z-score of less than -1.5 would be considered abnormal. References: 1. NIH Osteoporosis and Related Bone Diseases http://www.osteo.org 2. International Society for Clinical Densitometry http://www.iscd.org 3. National Osteoporosis Foundation http://www.nof.org Electronically Signed: Nick Rojo, at 13:58 EDT , Service support ,
== END ==
PROVIDERS: PCP Internal Medicine; Referring Provider Internal Medicine Endocrinology, Diabetes & Metabolism; Visit Provider Internal Medicine Endocrinology, Diabetes & Metabolism
DX: E21.0 Primary hyperparathyroidism (principal)
CPT/HCPCS: 77080

== ENCOUNTER → 2020-01-03 13:49 | Outpatient (CLI) | payer OTHER, SELFPAY ==
[2019-11-28 14:25] VITALS: BMI 25.2
[2020-01-03] MEDS: 0.9% NaCl Peripheral Flush Adult/Peds IV (14:00)
[2020-01-03 14:07] VITALS: BP 122/78; PULSE 79; RESP 16; TEMP 36.6; O2SAT 98; BMI 24.4
[2020-01-03] MEDS: Zoledronic Acid 5 MG 100 ML 300 MG IV (14:12)
[2020-01-03 14:25] VITALS: BP 127/80; PULSE 71
== END ==
PROVIDERS: PCP Internal Medicine; Referring Provider Internal Medicine Endocrinology, Diabetes & Metabolism; Visit Provider Internal Medicine Endocrinology, Diabetes & Metabolism
DX: M85.80 Other specified disorders of bone density and structure, unspecified site (principal)
CPT/HCPCS: 96374; A4216; J3489

== ENCOUNTER → 2020-01-16 11:07 | Outpatient (CLI) | payer OTHER, SELFPAY ==
[2020-01-16 10:56] VITALS: BMI 24.4
[2020-01-16 12:33] LABS: Absolute Lymphocyte Count 2.15 X10^3/uL (0.83-4.51); Absolute Neutrophil Count 3.5 X10^3/uL (2.0-7.7); Basophil# 0.03 X10^3/uL; Basophil% 0.5 % (0-1); Eosinophil# 0.13 X10^3/uL; Hematocrit 43.4 % (37-47); Lymphocyte # 2.15 X10^3/ul (4.0); Lymphocyte % 33.3 % (19-41); Mean Corp Hgb Conc 32.3 g/dL (32-36); Mean Corpuscular Hgb 28.3 pg (27.0-32.0); Mean Corpuscular Volume 87.9 fL (81-99); Mean Platelet Vol. 11.3 fl (6.2-12.0); Monocyte# 0.62 X10^3/uL; Monocyte% 9.6 % (0-10); NRBC Flagged by Analyzer 0 % (0-5); Neutrophil % 54.3 % (47-70); Platelet Count 207 K/mm3 (150-450); RBC Distribution Width CV 12.8 % (11.6-14.6); Red Blood Count 4.94 M/mm3 (4.2-5.4); White Blood Count 6.5 K/mm3 (4.4-11.0)
[2020-01-16 12:48] LABS: AST(SGOT) 15 U/L (15-37); Alanine Aminotransfer ALT/SGPT 25 U/L (13-56); Albumin, Serum 3.7 g/dL (3.2-5.0); Alkaline Phosphatase 98 U/L (45-117); Anion Gap 1 (5-15); BUN 18 mg/dL (7-18); BUN/Creat Ratio 25.7 RATIO (10-20); Calcium,Total 9.6 mg/dL (8.5-10.1); Chloride 104 mmol/L (98-107); EST Glomerular Filtration Rate 90 mL/min (>60); Est Glom Filt Rate - Afr Amer 109 mL/min (>60); Globulin 3.7 g/dL (2.2-4.2); Glucose 98 mg/dL (74-106); Potassium 3.9 mmol/L (3.5-5.1); Protein, Total 7.4 g/dL (6.4-8.2); Sodium Level 141 mmol/L (136-145)
== END ==
PROVIDERS: PCP Internal Medicine; Referring Provider Internal Medicine; Visit Provider Internal Medicine
DX: I10 Essential (primary) hypertension (principal); F32.9 Major depressive disorder, single episode, unspecified
CPT/HCPCS: 36415; 80053; 85025

== ENCOUNTER → 2020-03-20 13:30 | Outpatient (CLI) | payer OTHER, SELFPAY ==
[2020-01-25 15:02] VITALS: BMI 24.4
[2020-03-20 16:10] LABS: Free T3 2.9 pg/mL (2.18-3.98); T4 Free Direct 0.96 ng/dL (0.76-1.46); Thyroid Stim Hormone (TSH) 1.04 uIU/mL (0.358-3.74)
[2020-03-20 16:20] LABS: Vitamin D,25 Hydroxy 74.7 ng/mL
== END ==
PROVIDERS: PCP Internal Medicine; Referring Provider Internal Medicine Endocrinology, Diabetes & Metabolism; Visit Provider Internal Medicine Endocrinology, Diabetes & Metabolism
DX: E05.90 Thyrotoxicosis, unspecified without thyrotoxic crisis or storm (principal); E55.9 Vitamin D deficiency, unspecified
CPT/HCPCS: 36415; 82306; 84439; 84443; 84481

== ENCOUNTER → 2020-07-02 08:09 | Outpatient (CLI) | payer OTHER, SELFPAY ==
[2020-01-25 15:02] VITALS: BMI 24.4
[2020-03-27 13:43] VITALS: BMI 25.7
--- NOTE | 2020-07-02 08:11 | BI_ITS ---
MAMMOGRAPHY - BILATERAL SCREENING REASON FOR EXAM: Female, 65 years old. Routine annual screening examination. PERTINENT HISTORY: Sister with breast cancer. TECHNIQUE: Digital bilateral breast arnulfo (3D mammographic acquisition) in the CC and MLO projections. 2-D mediolateral oblique (MLO) and craniocaudad (CC) views of both breasts were obtained. CAD: Full Field Digital Mammography with Computer Added Detection was performed. COMPARISON: Comparison is made with prior study dated 04/28/2019 and 04/22/2018. FINDINGS: Breast Composition: The breasts are extremely dense, which lowers the sensitivity of mammography. There are no dominant masses or suspicious calcifications. Stable small benign-appearing bilateral axillary lymph nodes. No other significant abnormalities are identified. There has been no significant change since the prior study. BI/SCRN MAMM (CAD)W/ARNULFO BILAT IMPRESSION: Stable bilateral screening mammogram. Yearly follow-up mammogram recommended. (A) ASSESSMENT CATEGORY: BIRADS Category 2: Benign. A letter regarding these results will be sent to the patient by the facility within 30 days. Approximately 10% of breast cancers are not detected by mammography. A normal mammogram should not delay biopsy of a clinically suspicious abnormality. [id number] Electronically Signed: Nick Rojo MD at 9:05 EST , Service support ,
[2020-07-11 17:15] LABS: HPV APTIMA, High Risk Negative (Negative)
== END ==
PROVIDERS: PCP Internal Medicine; Referring Provider Obstetrics & Gynecology; Visit Provider Obstetrics & Gynecology
DX: Z12.31 Encounter for screening mammogram for malignant neoplasm of breast (principal); Z12.4 Encounter for screening for malignant neoplasm of cervix
CPT/HCPCS: 77063; 77067; 87624; 88175; G0145

== ENCOUNTER → 2020-07-16 10:10 | Outpatient (CLI) | payer OTHER, SELFPAY ==
[2020-07-16 09:39] VITALS: BMI 24.5
[2020-07-16 13:25] LABS: Anion Gap 7 (5-15); BUN 27 mg/dL (7-18); BUN/Creat Ratio 35.3 RATIO (10-20); Calcium,Total 10.7 mg/dL (8.5-10.1); Chloride 102 mmol/L (98-107); Creatinine, Serum 0.76 mg/dL (0.55-1.02); EST Glomerular Filtration Rate 81 mL/min (>60); Est Glom Filt Rate - Afr Amer 98 mL/min (>60); Glucose 96 mg/dL (74-106); Potassium 4.2 mmol/L (3.5-5.1); Sodium Level 140 mmol/L (136-145)
== END ==
PROVIDERS: PCP Internal Medicine; Visit Provider Internal Medicine
DX: I10 Essential (primary) hypertension (principal)
CPT/HCPCS: 36415; 80048

== ENCOUNTER 2020-08-28 06:48 | Day surgery (SDC) | payer OTHER, SELFPAY ==
[2020-07-16 09:39] VITALS: BMI 24.5
[2020-08-28] VITALS (7 sets, daily range): BP systolic 108–128; BP diastolic 70–81; PULSE 72–82; RESP 14–18; TEMP 35.7–36.6; O2SAT 95–100; BMI 24.5
[2020-08-28] MEDS: Lactated Ringers 1,000 ML 100 ML IV (07:35)
--- NOTE | 2020-08-28 07:43 | HP.PCM_ITS ---
History of Present Illness Date of Admission: 08/28/20 The patient is a 65 year old F here for screening colonoscopy. The patient reports she had her last colonoscopy 10 years ago and it was normal. She denies any abdominal pain or blood in her stool. The patient has no family history of colon cancer. Past Medical/Surgical History - Planned Operation Planned Operative Procedure/s: colonscopy open access Date of Operative Procedure: 08/28/20 Permit Signed: No S.O.S: No Is This Patient Having a Total Joint: No - Previous Hospitalizations/Surgeries HX Hospitalizations: Yes - pe lung yrs ago HX of Surgeries: 2012 a&p repair. tubal ligation. cscope Any Problems With Anesthesia: Yes - tinnitis and aspiration post op a&p repair You/Your Family Experience Fever (Hyperthermia) With Anes: No Cholinesterase deficiency: No - Cardiovascular Hx Chest Pain within Last 2 months: No Hx of Irregular Heartbeat and/or Afib: No Hx Heart Attack: No Hx Congestive Heart Failure: No Hx Rheumatic Fever: No Hx Hypertension: Yes - controlled with med Hx Internal Defibrillator: No Hx Pacemaker: No Hx Cardiac Catheterization: No Hx Cardiac Surgery/Stents/Etc.: No Hx Stress Test: No HX Edema: Yes - lower legs/feet Hx Pain in Legs when Walking/Leg Cramps: Yes - pain - Respiratory Chronic Cough: No HX of Shortness of Breath: No Hoarseness: No Hx Chronic Obstructive Pulmonary Disease (COPD): No Hx Asthma: No Hx Emphysema: No Hx Sleep Apnea: Yes CPAP: Yes BIPAP: No Hx Oxygen Use at Home: No Hx Respiratory Tract Infection/Cold (presently): No Result (for STOP score): Positive Hx Smoking: Yes - quit 22 yrs ago Smoking Status: Former smoker - Gastrointestinal Hx Gastroesophageal Reflux: Yes Controlled With Meds: Yes Hx Gastrointestinal Disorders: No Hx Gastrointestinal Bleed: No Hx Ulcer: No Hx Hiatal Hernia: Yes Difficulty Chewing/Swallowing: No Recent Onset of Swallowing Problems: No Special diet followed at home: No - . Hx Unplanned Weight Loss of 20#: No HX Unplanned Weight Gain of 20#: No - Neurological Hx Seizures: No HX Syncope/Blackout Spells/Unconsciousness: No Hx CVA/Stroke: No Hx Transient Ischemic Attacks (TIA): No Hx Multiple Sclerosis: No Hx Parkinson's Disease: No Hx Head/Neck Injury: No Hx Headaches: No Hx Back Injury/Pain: Yes - occ back pain Recent Onset of Speech Difficulty: No Restless Legs: Yes - occ Does patient have nerve stimulator: No Patient instructed to have device shut off: No Rep notified?: No - Blood Disorder Hx Leukemia: No Bleeding Tendencies: No Hx Deep Vein Thrombosis: Yes - pe lung yrs ago Hx High Cholesterol: No Blood Transmitted Disease: No Hx Hepatitis: No Hx Cirrhosis: No Hx Anemia: No Hx Blood Disorders: No - Reproduction : No Is Patient Lactating: No Hx Hysterectomy: No Hx Tubal Ligation: Yes Are You Post Menopause: Yes - Genitourinary Hx Renal Disease: No - a&p repair/bladder prolapsed at this time - Musculoskeletal Hx Arthritis: No Hx Rheumatoid Arthritis: No Hx Gout: No Recent Onset of an Orthopedic Problem: No - Endocrine Hx Diabetes: Yes - diet controlled Insulin: No Thyroid Disease: Yes - on med Hx Steroid Therapy: No - Psycho/Social Hx Substance Use: No Hx Alcohol Use: No Hx Anxiety: No Hx Depression: Yes - on med Mental Illness: No Hx Dementia: No - Miscellaneous Hx Cancer: No Recent Exposure to Contagious Disease: No Active MRSA: No Hx of C-Diff: No Any Loose Teeth: No Allergies amoxicillin Allergy (Mild, Verified 08/24/20 09:57) Hives decongestants Allergy (Intermediate, Uncoded 08/24/20 09:57) palpitations - Discharge Is Pt Admitted From a [facility], or a Longterm: No After D/C, Where Do you Plan to Go: Return Home - From the PAT History Number of Risk Factors: 5 - Physical Exam Vitals/I&O's: Vital Signs Temp Pulse Resp BP Pulse Ox 96.3 F L 74 14 128/81 H 100 08/28/20 07:15 08/28/20 07:15 08/28/20 07:15 08/28/20 07:15 08/28/20 07:15 Oxygen Delivery Method Room Air Weight: 139 lb 15.896 oz Body Mass Index (BMI) 24.5 General: Alert, Oriented x3 Neck: No JVD Lungs: Normal air movement Cardiovascular: Regular rate, Regular Rhythm Abdomen: Soft, Non Tender, Non-Distended Microbiology Past 72 Hours 08/27/20 10:10 Interface Orders SARS-CoV-2 Antigen (Rapid) - Final Current Medications Lactated Ringer's () 1,000 mls @ 100 mls/hr IV .Q10H [facility] Last Admin: 08/28/20 07:35 Dose: 100 mls/hr Documented by: Assessment/Plan All Active Problems (Last Reviewed 07/16/20 @ 09:46 by Claudia Armstrong) Unsatisfactory cervical Papanicolaou smear (Acute) Acute lumbar myofascial strain (Acute) Fatigue (Acute) Cough (Resolved) Tobacco abuse, in remission (Resolved) 65-year-old female for screening colonoscopy I explained endoscopy in detail to the patient. I explained the risks including but not limited to stroke or heart attack with anesthesia, perforation of the GI tract, bleeding, infection. I explained that any of these could necessitate further emergency surgery. The patient understands and all questions were answered sufficiently. The patient wishes to proceed with procedure. Shaji Mcdaniel MD Pager: [facility] [address] [place] [address], [address] [place] [address] Office: Surgery Risks - Colonoscopy Risks Include but are not Limited To: Risks include but are not limited to: Bleeding, perforation requiring further surgery, inability to complete colonoscopy requiring barium enema.
--- NOTE | 2020-08-28 08:00 | COLBX_PTH ---
PATIENT: NELSON GOMEZ LOC: EN U#:[id number] AGE/SX: 65/F ROOM: RE08/28/[address]: Dr. Shaji Mcdaniel MD : 1955 BED: DIS: 08/28/2020 SPEC #: [id number] RECD: 08/28/20 11:09 STATUS: GAGE CODI #: [id number] GABRIEL: 08/28/20 08:[address]: Shaji Mcdaniel DEPT: SURGICAL PATHOLOGY RECD BY: Gabrielle Campos ENTERED: 08/28/20 12:47 SP TYPE: COLON BX OTHR DR: Dr. Dior Sanchez MD Tissues: Ascending colon Procedures: Surgery Specimen Level IV HEADER OPERATION: Colonoscopy - open access (MAC) PRE-OP DIAGNOSIS: Screening colonoscopy TISSUE SUBMITTED: Ascending colon polyp MICROSCOPIC DIAGNOSIS Ascending colon polyp, biopsy: Fragments of tubular adenoma. AM:lazaro 08/29/2020 MICROSCOPIC DESCRIPTION Slides are reviewed. GROSS DESCRIPTION Received in fixative is one container labeled with the patient's name and designated ascending colon polyp. The specimen consists of multiple irregular fragments of light mahan soft tissue that in aggregate measure 1 x 0.3 x 0.1 cm. Multiple fragments of fecal material are also noted. The specimen is totally submitted in one cassette. / SJ:lazaro 09/28/20 TC:5 CPT: 70319
--- NOTE | 2020-08-28 08:17 | OP.COLON_ITS ---
Patient Name: Leigha Ward Procedure Date: 08/28/2020 7:48 AM Date of : 1955 Age: 65 Procedure: Colonoscopy Indications: Screening for colorectal malignant neoplasm Providers: Shaji Mcdaniel MD Referring MD: Dior Sanchez MD Medicines: Monitored Anesthesia Care Patient Profile: This is a 65 year old female. Refer to note in patient chart for documentation of history and physical. Last Colonoscopy: 10 years ago. Complications: No immediate complications. Procedure: Pre-Anesthesia Assessment: - Prior to the procedure, a History and Physical was performed, and patient medications and allergies were reviewed. The patient's tolerance of previous anesthesia was also reviewed. The risks and benefits of the procedure and the sedation options and risks were discussed with the patient. All questions were answered, and informed consent was obtained. Prior Anticoagulants: The patient has taken no previous anticoagulant or antiplatelet agents. After reviewing the risks and benefits, the patient was deemed in satisfactory condition to undergo the procedure. After I obtained informed consent, the scope was passed under direct vision. Throughout the procedure, the patient's blood pressure, pulse, and oxygen saturations were monitored continuously. The pediatric colonoscope was introduced through the anus and advanced to the cecum, identified by appendiceal orifice and ileocecal valve. The colonoscopy was performed without difficulty. The patient tolerated the procedure well. The quality of the bowel preparation was good. Scope In: 7:57:24 AM Scope Withdrawal Time 0 hours 6 minutes 7 seconds Scope Out: 8:09:55 AM Total Procedure Duration Time 0 hours 12 minutes 31 seconds Findings: A small polyp was found in the ascending colon. The polyp was removed with a hot snare. Resection and retrieval were complete. The exam was otherwise without abnormality. Impression: - One small polyp in the ascending colon, removed with a hot snare. Resected and retrieved. - The examination was otherwise normal. Recommendation: - Discharge patient to home. - Resume previous diet. - Continue present medications. - Await pathology results. - Repeat colonoscopy for surveillance based on pathology results. Procedure Code(s): --- Professional --- 24628, Colonoscopy, flexible; with removal of tumor(s), polyp(s), or other lesion(s) by snare technique Diagnosis Code(s): --- Professional --- Z12.11, Encounter for screening for malignant neoplasm of colon D12.2, Benign neoplasm of ascending colon CPT copyright 2017 [employer]. All rights reserved. The codes documented in this report are preliminary and upon canvas cutter review may be revised to meet current compliance requirements. Shaji Mcdaniel MD 08/28/2020 8:16:55 AM This report has been signed electronically. Number of Addenda: 0 Note Initiated On: 08/28/2020 7:48 AM
--- NOTE | 2020-08-28 08:17 | OP.CCLET_ITS ---
08/28/2020 Dior Sanchez MD [address] [place] [address] [place] [address] Re : Colonoscopy procedure for Leigha Ward Dear Dr. Sanchez This procedure was performed on Friday, August 28, 2020. My impressions and recommendations are as follows: Impressions : - One small polyp in the ascending colon, removed with a hot snare. Resected and retrieved. - The examination was otherwise normal. Recommendations : - Discharge patient to home. - Resume previous diet. - Continue present medications. - Await pathology results. - Repeat colonoscopy for surveillance based on pathology results. My findings are described in the full procedure note, which is enclosed. If I can be of further assistance, please feel free to contact me at Doctor phone number(s): , Work: . Sincerely, Shaji Mcdaniel MD 08/28/2020 8:16:55 AM This report has been signed electronically.
== END 2020-08-28 09:05 | disposition home or self-care (01) ==
LOC: EN 06:55 → AC 06:56
PROVIDERS: PCP Internal Medicine; Referring Provider Internal Medicine; Visit Provider Surgery
PROC: 0DJD8ZZ Inspection of Lower Intestinal Tract, Via Natural or Artificial Opening Endoscopic (ICD-10-PCS; CPT 45378; principal; 2020-08-28 07:55)
DX: Z12.11 Encounter for screening for malignant neoplasm of colon (principal); D12.2 Benign neoplasm of ascending colon; I10 Essential (primary) hypertension; E06.9 Thyroiditis, unspecified; K21.9 Gastro-esophageal reflux disease without esophagitis; G47.30 Sleep apnea, unspecified; F32.9 Major depressive disorder, single episode, unspecified; Z20.822 Contact with and (suspected) exposure to COVID-19; Z79.899 Other long term (current) drug therapy; Z87.891 Personal history of nicotine dependence
CPT/HCPCS: 45385; 87426; 88305; C9803; J7120

== ENCOUNTER → 2020-09-17 08:33 | Outpatient (CLI) | payer OTHER, SELFPAY ==
[2020-09-17 08:08] VITALS: BMI 25.0
[2020-09-17 12:54] LABS: Hemoglobin A1c 5.6 % (3.8-5.6)
[2020-09-17 12:58] LABS: ALB/GLOB Ratio 0.9 RATIO (0.9-2.4); AST(SGOT) 17 U/L (15-37); Alanine Aminotransfer ALT/SGPT 28 U/L (13-56); Albumin, Serum 3.7 g/dL (3.2-5.0); Alkaline Phosphatase 93 U/L (45-117); Anion Gap 6 (5-15); BUN 16 mg/dL (7-18); BUN/Creat Ratio 23.4 RATIO (10-20); Calcium,Total 10.3 mg/dL (8.5-10.1); Chloride 99 mmol/L (98-107); Creatinine, Serum 0.68 mg/dL (0.55-1.02); EST Glomerular Filtration Rate 92 mL/min (>60); Est Glom Filt Rate - Afr Amer 112 mL/min (>60); Free T3 2.9 pg/mL (2.18-3.98); Globulin 3.9 g/dL (2.2-4.2); Glucose 89 mg/dL (74-106); Potassium 3.4 mmol/L (3.5-5.1); Protein, Total 7.6 g/dL (6.4-8.2); Sodium Level 139 mmol/L (136-145); T4 Free Direct 0.91 ng/dL (0.76-1.46)
[2020-09-17 13:04] LABS: PTHIN 77.1 pg/mL (18.4-80.1)
[2020-09-17 13:11] LABS: Vitamin D,25 Hydroxy 33.9 ng/mL
== END ==
PROVIDERS: PCP Internal Medicine; Visit Provider Internal Medicine Endocrinology, Diabetes & Metabolism
DX: E83.52 Hypercalcemia (principal); E05.20 Thyrotoxicosis with toxic multinodular goiter without thyrotoxic crisis or storm; E21.0 Primary hyperparathyroidism; E55.9 Vitamin D deficiency, unspecified; R73.09 Other abnormal glucose
CPT/HCPCS: 36415; 80053; 82306; 83036; 83970; 84439; 84443; 84481

== ENCOUNTER → 2021-01-03 12:48 | Outpatient (CLI) | payer OTHER, SELFPAY ==
[2020-09-17 08:08] VITALS: BMI 25.0
[2021-01-03 12:53] VITALS: BP 123/78; PULSE 84; RESP 16; TEMP 35.9; O2SAT 96; BMI 25.1
[2021-01-03] MEDS: 0.9% NaCl Peripheral Flush Adult/Peds IV (12:59)
[2021-01-03] MEDS: Zoledronic Acid 5 MG 100 ML 300 MG IV (13:05)
[2021-01-03 13:32] VITALS: BP 129/75; PULSE 72
== END ==
PROVIDERS: PCP Internal Medicine; Referring Provider Internal Medicine Endocrinology, Diabetes & Metabolism; Visit Provider Internal Medicine Endocrinology, Diabetes & Metabolism
DX: M85.80 Other specified disorders of bone density and structure, unspecified site (principal)
CPT/HCPCS: 96365; A4216; J3489

== ENCOUNTER → 2021-01-14 09:41 | Outpatient (CLI) | payer OTHER, SELFPAY ==
[2021-01-14 09:28] VITALS: BMI 25.1
[2021-01-14 12:05] LABS: Absolute Lymphocyte Count 1.85 X10^3/uL (0.83-4.51); Absolute Neutrophil Count 3.8 X10^3/uL (2.0-7.7); Basophil# 0.03 X10^3/uL; Basophil% 0.5 % (0-1); Eosinophils% 1.6 % (0-5); Hematocrit 43.9 % (37-47); Hemoglobin 13.9 g/dL (12.0-15.0); Lymphocyte # 1.85 X10^3/ul (0.83-4.51); Lymphocyte % 29.6 % (19-41); Mean Corp Hgb Conc 31.7 g/dL (32-36); Mean Corpuscular Hgb 28.1 pg (27.0-32.0); Mean Corpuscular Volume 88.7 fL (81-99); Mean Platelet Vol. 11.5 fl (6.2-12.0); Monocyte# 0.43 X10^3/uL; Monocyte% 6.9 % (0-10); NRBC Flagged by Analyzer 0 % (0-5); Neutrophil # 3.82 X10^3/uL (2.7-7.7); Neutrophil % 60.9 % (47-70); Platelet Count 220 K/mm3 (150-450); RBC Distribution Width CV 12.2 % (11.6-14.6); RBC Distribution Width SD 39.2 fl (35.1-43.9); Red Blood Count 4.95 M/mm3 (4.2-5.4); White Blood Count 6.3 K/mm3 (4.4-11.0)
[2021-01-14 12:16] LABS: Anion Gap 6 (5-15); BUN 16 mg/dL (7-18); BUN/Creat Ratio 21.3 RATIO (10-20); Chloride 100 mmol/L (98-107); Creatinine, Serum 0.75 mg/dL (0.55-1.02); EST Glomerular Filtration Rate 83 mL/min (>60); Est Glom Filt Rate - Afr Amer 100 mL/min (>60); Glucose 164 mg/dL (74-106); Potassium 3.6 mmol/L (3.5-5.1); Sodium Level 138 mmol/L (136-145)
== END ==
PROVIDERS: PCP Internal Medicine; Referring Provider Internal Medicine; Visit Provider Internal Medicine
DX: I10 Essential (primary) hypertension (principal)
CPT/HCPCS: 36415; 80048; 85025

== ENCOUNTER → 2021-03-19 10:01 | Outpatient (CLI) | payer OTHER, SELFPAY ==
[2021-03-19 12:58] LABS: PTHIN 82.4 pg/mL (18.4-80.1)
[2021-03-19 12:59] LABS: Vitamin D,25 Hydroxy 36.2 ng/mL
[2021-03-19 13:12] LABS: Calcium,Total 10.6 mg/dL (8.5-10.1); Phosphorus 3.1 mg/dL (2.5-4.9)
== END ==
PROVIDERS: PCP Internal Medicine; Referring Provider Internal Medicine Endocrinology, Diabetes & Metabolism; Visit Provider Internal Medicine Endocrinology, Diabetes & Metabolism
DX: R73.03 Prediabetes (principal); M85.80 Other specified disorders of bone density and structure, unspecified site; E21.0 Primary hyperparathyroidism; E05.90 Thyrotoxicosis, unspecified without thyrotoxic crisis or storm; E55.9 Vitamin D deficiency, unspecified
CPT/HCPCS: 36415; 82306; 82310; 83970; 84100; 84439; 84443; 84481

== ENCOUNTER 2021-07-03 09:00 | Outpatient (CLI) | payer OTHER, SELFPAY ==
[2021-07-09 20:51] LABS: HPV APTIMA, High Risk Negative (Negative)
== END 2021-07-03 23:59 | disposition short-term general hospital (02) ==
LOC: LABSPEC 07-04 09:04
PROVIDERS: PCP Internal Medicine; Visit Provider Nurse Practitioner Women's Health
DX: Z78.0 Asymptomatic menopausal state (principal)
CPT/HCPCS: 87624; 88175; G0145

== ENCOUNTER 2021-07-03 09:51 | Outpatient (CLI) | payer OTHER, SELFPAY ==
--- NOTE | 2021-07-03 09:54 | BI_ITS ---
MAMMOGRAPHY - BILATERAL SCREENING REASON FOR EXAM: Female, 66 years old. Routine annual screening examination. PERTINENT HISTORY: Sister with breast cancer. Remote left breast aspiration. TECHNIQUE: Digital bilateral breast arnulfo (3D mammographic acquisition) in the CC and MLO projections. 2-D mediolateral oblique (MLO) and craniocaudad (CC) views of both breasts were obtained. CAD: Full Field Digital Mammography with Computer Added Detection was performed. COMPARISON: Comparison is made with prior study dated 07/02/2020 and 04/28/2019. FINDINGS: Breast Composition: The breasts are extremely dense, which lowers the sensitivity of mammography. There are no dominant masses or suspicious calcifications. Stable small benign-appearing bilateral axillary lymph nodes. No other significant abnormalities are identified. There has been no significant change since the prior study. BI/SCRN MAMM (CAD)W/ARNULFO BILAT IMPRESSION: Stable bilateral screening mammogram. Yearly follow-up mammogram recommended. (A) ASSESSMENT CATEGORY: BIRADS Category 2: Benign. A letter regarding these results will be sent to the patient by the facility within 30 days. Approximately 10% of breast cancers are not detected by mammography. A normal mammogram should not delay biopsy of a clinically suspicious abnormality. [id number] Electronically Signed: Nick Rojo MD at 10:45 EST ,
== END 2021-07-03 23:59 | disposition short-term general hospital (02) ==
LOC: OPBI 09:53
PROVIDERS: PCP Internal Medicine; Referring Provider Obstetrics & Gynecology; Visit Provider Obstetrics & Gynecology
DX: Z12.31 Encounter for screening mammogram for malignant neoplasm of breast (principal); Z80.3 Family history of malignant neoplasm of breast
CPT/HCPCS: 77063; 77067

== ENCOUNTER 2021-09-16 10:22 | Outpatient (CLI) | payer OTHER, SELFPAY ==
[2021-09-16 12:33] LABS: Vitamin D,25 Hydroxy 34.2 ng/mL
[2021-09-16 12:38] LABS: AST(SGOT) 20 U/L (15-37); Alanine Aminotransfer ALT/SGPT 33 U/L (13-56); Albumin, Serum 3.6 g/dL (3.2-5.0); Alkaline Phosphatase 76 U/L (45-117); Anion Gap 3 (5-15); BUN 17 mg/dL (7-18); BUN/Creat Ratio 23.1 RATIO (10-20); Chloride 102 mmol/L (98-107); Creatinine, Serum 0.74 mg/dL (0.55-1.02); EST Glomerular Filtration Rate 85 mL/min (>60); Est Glom Filt Rate - Afr Amer 102 mL/min (>60); Free T3 2.9 pg/mL (2.18-3.98); Globulin 3.7 g/dL (2.2-4.2); Glucose 99 mg/dL (74-106); Potassium 3.5 mmol/L (3.5-5.1); Protein, Total 7.3 g/dL (6.4-8.2); Sodium Level 139 mmol/L (136-145); T4 Free Direct 0.94 ng/dL (0.76-1.46); Thyroid Stim Hormone (TSH) 0.82 uIU/mL (0.358-3.74)
[2021-09-16 12:48] LABS: PTHIN 59.9 pg/mL (18.4-80.1)
== END 2021-09-16 23:59 | disposition home or self-care (01) ==
LOC: BIMLAB 10:23
PROVIDERS: PCP Internal Medicine; Visit Provider Nurse Practitioner Family
DX: R73.03 Prediabetes (principal); E21.0 Primary hyperparathyroidism; M85.80 Other specified disorders of bone density and structure, unspecified site; E05.90 Thyrotoxicosis, unspecified without thyrotoxic crisis or storm
CPT/HCPCS: 36415; 80053; 82306; 83970; 84439; 84443; 84481

== ENCOUNTER → 2021-10-09 | Outpatient (CLI) | payer OTHER, SELFPAY ==
[2021-10-09 13:04] LABS: T4 Free Direct 0.94 ng/dL (0.76-1.46)
== END | disposition home or self-care (01) ==
LOC: BIMLAB 10:24
PROVIDERS: PCP Internal Medicine; Referring Provider Nurse Practitioner Family; Visit Provider Nurse Practitioner Family
DX: E05.90 Thyrotoxicosis, unspecified without thyrotoxic crisis or storm (principal)
CPT/HCPCS: 36415; 84439; 84443; 84481

== ENCOUNTER → 2021-10-14 | Outpatient (CLI) | payer OTHER, SELFPAY ==
[2021-10-14 16:08] LABS: Magnesium 1.8 mg/dL (1.6-2.6); Phosphorus 2.9 mg/dL (2.5-4.9)
[2021-10-14 16:22] LABS: T4 Free Direct 0.96 ng/dL (0.76-1.46); Thyroid Stim Hormone (TSH) 0.28 uIU/mL (0.358-3.74)
== END | disposition home or self-care (01) ==
LOC: BIMLAB 14:41
PROVIDERS: Nurse Practitioner Family; PCP Internal Medicine; Visit Provider Internal Medicine Endocrinology, Diabetes & Metabolism
DX: E05.90 Thyrotoxicosis, unspecified without thyrotoxic crisis or storm (principal); M85.80 Other specified disorders of bone density and structure, unspecified site
CPT/HCPCS: 36415; 83735; 84100; 84439; 84443; 84481

== ENCOUNTER → 2022-01-03 | Outpatient (CLI) | payer OTHER, SELFPAY ==
[2022-01-03 12:22] VITALS: BP 132/67; PULSE 83; RESP 16; TEMP 36.6; O2SAT 98; BMI 24.7
[2022-01-03] MEDS: Zoledronic Acid 5 MG 100 ML 300 MG IV (12:36)
[2022-01-03] MEDS: 0.9% NaCl IVPB Med Flush (250 mL) 15 ML IV (12:36)
[2022-01-03] MEDS: 0.9% NaCl Peripheral Flush Adult/Peds IV (12:37)
[2022-01-03 13:07] VITALS: BP 111/73; PULSE 78; RESP 16; TEMP 36.8; O2SAT 100
== END | disposition home or self-care (01) ==
LOC: MEDOUTP 12:15
PROVIDERS: PCP Internal Medicine; Referring Provider Internal Medicine Endocrinology, Diabetes & Metabolism; Visit Provider Internal Medicine Endocrinology, Diabetes & Metabolism
DX: M85.80 Other specified disorders of bone density and structure, unspecified site (principal)
CPT/HCPCS: 96365; J7050; A4216; J3489

== ENCOUNTER → 2022-01-13 | Outpatient (CLI) | payer OTHER, SELFPAY ==
[2022-01-13 12:09] LABS: Absolute Lymphocyte Count 2.14 X10^3/uL (0.83-4.51); Absolute Neutrophil Count 4.1 X10^3/uL (2.0-7.7); Basophil# 0.02 X10^3/uL; Basophil% 0.3 % (0-1); Eosinophil# 0.09 X10^3/uL; Eosinophils% 1.3 % (0-5); Hematocrit 45.1 % (37-47); Hemoglobin 14.5 g/dL (12.0-15.0); Lymphocyte # 2.14 X10^3/ul (0.83-4.51); Lymphocyte % 30.8 % (19-41); Mean Corp Hgb Conc 32.2 g/dL (32-36); Mean Corpuscular Hgb 28.3 pg (27.0-32.0); Mean Corpuscular Volume 88.1 fL (81-99); Mean Platelet Vol. 11.3 fl (6.2-12.0); Monocyte% 8.6 % (0-10); NRBC Flagged by Analyzer 0 % (0-5); Neutrophil # 4.06 X10^3/uL (2.7-7.7); Neutrophil % 58.4 % (47-70); Platelet Count 214 K/mm3 (150-450); RBC Distribution Width CV 12.4 % (11.6-14.6); RBC Distribution Width SD 40.4 fl (35.1-43.9); Red Blood Count 5.12 M/mm3 (4.2-5.4)
[2022-01-13 12:27] LABS: Hemoglobin A1c 5.6 % (3.8-5.6)
[2022-01-13 12:46] LABS: ALB/GLOB Ratio 0.9 RATIO (0.9-2.4); AST(SGOT) 16 U/L (15-37); Alanine Aminotransfer ALT/SGPT 27 U/L (13-56); Albumin, Serum 3.6 g/dL (3.2-5.0); Alkaline Phosphatase 76 U/L (45-117); Anion Gap 6 (5-15); BUN 24 mg/dL (7-18); BUN/Creat Ratio 29.6 RATIO (10-20); Calcium,Total 10.5 mg/dL (8.5-10.1); Chloride 104 mmol/L (98-107); Cholesterol 175 mg/dL (200); Creatinine, Serum 0.81 mg/dL (0.55-1.02); EST Glomerular Filtration Rate 75 mL/min (>60); Est Glom Filt Rate - Afr Amer 91 mL/min (>60); Globulin 3.8 g/dL (2.2-4.2); Glucose 97 mg/dL (74-106); High Density Lipoprotein 55 mg/dL; Potassium 3.6 mmol/L (3.5-5.1); Protein, Total 7.4 g/dL (6.4-8.2); Sodium Level 141 mmol/L (136-145); Triglycerides 105 mg/dL; Very Low Density Lipoprotein 21 mg/dL (5-40)
== END | disposition home or self-care (01) ==
LOC: BIMLAB 10:38
PROVIDERS: PCP Internal Medicine; Referring Provider Internal Medicine; Visit Provider Internal Medicine
DX: I10 Essential (primary) hypertension (principal); R73.03 Prediabetes
CPT/HCPCS: 36415; 80053; 80061; 83036; 85025

== ENCOUNTER → 2022-03-13 | Outpatient (CLI) | payer OTHER, SELFPAY ==
--- NOTE | 2022-03-13 10:22 | BD_ITS ---
STUDY: DUAL ENERGY X-RAY ABSORPTIOMETRY / DXA REASON FOR EXAM: Female, 66 years old. Post Menopausal TECHNIQUE: Bone Mineral Density (BMD) measurements of lumbar spine and bilateral hips were obtained. COMPARISON: Comparison is made with prior study dated 11/01/2019. FINDINGS: Lumbar Spine (L1-L4): g/cm2 (1.014) / T-score (-0.3) / Z-score (1.4) Findings are suggestive of normal bone density with a low fracture risk. Left Femur Total: g/cm2 (0.863) / T-score (-0.6) / Z-score (0.6) Left Femoral Neck: g/cm2 (0.756) / T-score (-0.8) / Z-score (0.7) Right Femur Total: g/cm2 (0.913) / T-score (-0.2) / Z-score (1.0) Right Femoral Neck: g/cm2 (0.837) / T-score (-0.1) / Z-score (1.4) The T-Scores on the most recent prior examination were: Lumbar Spine (L1-L4): There has been improvement of bone density since the previous examination. Left Femur Total: which represents an improvement of 2.2%. Right Femur Total: which represents a worsening of 1.4%. BD/Dexa Bone Density Study IMPRESSION: The patient is considered normal as outlined below according to World Miles Organization (WHO) criteria with a low fracture risk. There has been improvement of bone density since the previous examination. Reference Information: The T-score is the number of standard deviations above or below the standard which is normal for young adults at their peak bone mineral density. The World Health Organization (WHO) interprets the T-scores as follows: Above -1 Normal bone density Between -1 and -2.5 Osteopenia Equal to / or below -2.5 Osteoporosis As a practical clinical guideline, osteopenia may be graded as follows: Mild -1 through -1.5 Moderate -1.6 through -2.0 Severe -2.1 through -2.4 The Z-score is the number of standard deviations above or below age-matched controls. A Z-score of less than -1.5 would be considered abnormal. References: 1. NIH Osteoporosis and Related Bone Diseases www osteo.org 2. International Society for Clinical Densitometry www iscd.org 3. National Osteoporosis Foundation www nof.org Electronically Signed: Nick Rojo MD at 9:29 EDT ,
== END | disposition home or self-care (01) ==
PROVIDERS: PCP Internal Medicine; Visit Provider Internal Medicine
DX: Z13.820 Encounter for screening for osteoporosis (principal); Z78.0 Asymptomatic menopausal state
CPT/HCPCS: 77080

== ENCOUNTER → 2022-03-19 | Outpatient (CLI) | payer OTHER, SELFPAY ==
[2022-03-19 12:46] LABS: PTHIN 93.8 pg/mL (18.4-80.1)
[2022-03-19 12:54] LABS: ALB/GLOB Ratio 0.9 RATIO (0.9-2.4); AST(SGOT) 19 U/L (15-37); Alanine Aminotransfer ALT/SGPT 28 U/L (13-56); Albumin, Serum 3.5 g/dL (3.2-5.0); Alkaline Phosphatase 69 U/L (45-117); Anion Gap 6 (5-15); BUN 19 mg/dL (7-18); BUN/Creat Ratio 26.3 RATIO (10-20); Calcium,Total 10.4 mg/dL (8.5-10.1); Chloride 103 mmol/L (98-107); Creatinine, Serum 0.72 mg/dL (0.55-1.02); EST Glomerular Filtration Rate 86 mL/min (>60); Est Glom Filt Rate - Afr Amer 104 mL/min (>60); Free T3 3.1 pg/mL (2.18-3.98); Globulin 3.8 g/dL (2.2-4.2); Glucose 96 mg/dL (74-106); Potassium 3.5 mmol/L (3.5-5.1); Protein, Total 7.3 g/dL (6.4-8.2); Sodium Level 141 mmol/L (136-145); T4 Free Direct 0.91 ng/dL (0.76-1.46); Thyroid Stim Hormone (TSH) 0.32 uIU/mL (0.358-3.74)
[2022-03-19 13:14] LABS: Vitamin D,25 Hydroxy 39.4 ng/mL
== END | disposition home or self-care (01) ==
LOC: BIMLAB 10:35
PROVIDERS: PCP Internal Medicine; Referring Provider Nurse Practitioner Family; Visit Provider Nurse Practitioner Family
DX: E83.52 Hypercalcemia (principal); E21.0 Primary hyperparathyroidism; E05.20 Thyrotoxicosis with toxic multinodular goiter without thyrotoxic crisis or storm; M85.80 Other specified disorders of bone density and structure, unspecified site
CPT/HCPCS: 36415; 80053; 82306; 83970; 84439; 84443; 84481

== ENCOUNTER → 2022-07-04 | Outpatient (CLI) | payer MEDICARE, SELFPAY ==
--- NOTE | 2022-07-04 09:59 | BI_ITS ---
MAMMOGRAPHY - BILATERAL SCREENING REASON FOR EXAM: Female, 67 years old. Routine annual screening examination. PERTINENT HISTORY: Sister with breast cancer. TECHNIQUE: Digital bilateral breast arnulfo (3D mammographic acquisition) in the CC and MLO projections. 2-D mediolateral oblique (MLO) and craniocaudad (CC) views of both breasts were obtained. CAD: Full Field Digital Mammography with Computer Added Detection was performed. COMPARISON: Comparison is made with prior study dated 07/03/2021 and 07/02/2020. FINDINGS: Breast Composition: The breasts are extremely dense, which lowers the sensitivity of mammography. There are no dominant masses or suspicious calcifications. Stable small benign-appearing bilateral axillary lymph nodes. No other significant abnormalities are identified. There has been no significant change since the prior study. BI/SCRN MAMM (CAD)W/ARNULFO BILAT IMPRESSION: Stable bilateral screening mammogram. Yearly follow-up mammogram recommended. (A) ASSESSMENT CATEGORY: BIRADS Category 2: Benign. A letter regarding these results will be sent to the patient by the facility within 30 days. Approximately 10% of breast cancers are not detected by mammography. A normal mammogram should not delay biopsy of a clinically suspicious abnormality. [id number] Electronically Signed: Nick Rojo MD at 11:05 EST ,
== END | disposition home or self-care (01) ==
PROVIDERS: PCP Internal Medicine; Visit Provider Internal Medicine
DX: Z12.31 Encounter for screening mammogram for malignant neoplasm of breast (principal); Z80.3 Family history of malignant neoplasm of breast
CPT/HCPCS: 77063; 77067

== ENCOUNTER → 2022-09-17 | Outpatient (CLI) | payer MEDICARE, SELFPAY ==
[2022-09-17 13:19] LABS: Vitamin D,25 Hydroxy 47.3 ng/mL
[2022-09-17 13:22] LABS: PTHIN 76.3 pg/mL (18.4-80.1)
[2022-09-17 13:34] LABS: ALB/GLOB Ratio 0.9 RATIO (0.9-2.4); AST(SGOT) 15 U/L (15-37); Alanine Aminotransfer ALT/SGPT 25 U/L (13-56); Albumin, Serum 3.5 g/dL (3.2-5.0); Alkaline Phosphatase 71 U/L (45-117); Anion Gap 2 (5-15); BUN 19 mg/dL (7-18); BUN/Creat Ratio 27.6 RATIO (10-20); Calcium,Total 10.7 mg/dL (8.5-10.1); Chloride 105 mmol/L (98-107); Creatinine, Serum 0.69 mg/dL (0.55-1.02); EST Glomerular Filtration Rate 91 mL/min (>60); Est Glom Filt Rate - Afr Amer 110 mL/min (>60); Globulin 3.9 g/dL (2.2-4.2); Glucose 89 mg/dL (74-106); Potassium 3.9 mmol/L (3.5-5.1); Protein, Total 7.4 g/dL (6.4-8.2); Sodium Level 138 mmol/L (136-145)
== END | disposition home or self-care (01) ==
PROVIDERS: PCP Internal Medicine; Referring Provider Internal Medicine Endocrinology, Diabetes & Metabolism; Visit Provider Internal Medicine Endocrinology, Diabetes & Metabolism
DX: E05.20 Thyrotoxicosis with toxic multinodular goiter without thyrotoxic crisis or storm (principal); E21.0 Primary hyperparathyroidism; E11.9 Type 2 diabetes mellitus without complications; E55.9 Vitamin D deficiency, unspecified; M85.80 Other specified disorders of bone density and structure, unspecified site; I10 Essential (primary) hypertension
CPT/HCPCS: 36415; 80053; 82306; 83970; 84439; 84443; 84481

== ENCOUNTER → 2022-11-28 | Outpatient (CLI) | payer MEDICARE, SELFPAY ==
[2022-11-28 15:35] LABS: Bacteria 0 SEEN /hpf (None Seen); Mucous, Urine 0 SEEN /hpf (<or=2+); Red Blood Cells-Urine 0 SEEN /hpf (0-5)
[2022-11-28 17:23] LABS: Color, Urine Yellow (Yellow); Glucose, Dipstick Normal (Normal); Ketone-Dipstick Negative (Negative); Leukocyte Esterase-Dipstick 100 /ul (Negative); Nitrite-Dipstick Negative (Negative); Occult Blood-Urine Negative /ul (Negative); Protein-Dipstick 15 mg/dl (Negative); Specific Gravity, Urine 1.015 (1.002-1.030); Urine Bilirubin Dipstick Negative (Negative); Urine Clarity Clear (Clear); Urine Urobilinogen Normal (Normal); Urine pH 6.5 (5.0 - 8.0)
[2022-11-28 17:39] LABS: Squamous Epithelial Cells - UA 0-5 SEEN /hpf (5-10); White Blood Cells 0-5 SEEN /hpf (0-5)
== END | disposition home or self-care (01) ==
LOC: LABSPEC 15:10
PROVIDERS: PCP Internal Medicine; Referring Provider Physician Assistant; Visit Provider Physician Assistant
DX: R35.0 Frequency of micturition (principal)
CPT/HCPCS: 81001; 87086; 87088

== ENCOUNTER → 2023-03-06 | Outpatient (CLI) | payer MEDICARE, SELFPAY ==
--- NOTE | 2023-03-06 09:47 | RAD_ITS ---
EXAM: XR LUMBOSACRAL SPINE, 4 OR 5 VIEWS CLINICAL INDICATION: Chronic back pain TECHNIQUE: Frontal, lateral and bilateral oblique views of the lumbar spine. COMPARISON: No relevant prior studies available. FINDINGS: VERTEBRAE: There is curvature of the thoracolumbar spine centered at L2. Preserved vertebral body height. No fracture. No spondylolisthesis. No significant facet arthropathy. DISC SPACES: No acute findings. Disc spaces are maintained. GASTROINTESTINAL TRACT: Unremarkable as visualized. Included bowel gas pattern is non-obstructive. RAD/L/S Spine Min 4 Views IMPRESSION: Scoliotic curvature of the thoracolumbar spine. There is no acute osseous abnormality. Electronically Signed: Ozzie Trivedi MD at 21:52 EDT ,
[2023-03-06 12:22] LABS: Absolute Lymphocyte Count 2.33 X10^3/uL (0.83-4.51); Absolute Neutrophil Count 3.3 X10^3/uL (2.0-7.7); Basophil# 0.03 X10^3/uL; Basophil% 0.5 % (0-1); Eosinophil# 0.11 X10^3/uL; Eosinophils% 1.8 % (0-5); Hematocrit 43.3 % (37-47); Hemoglobin 13.7 g/dL (12.0-15.0); Lymphocyte # 2.33 X10^3/ul (0.83-4.51); Lymphocyte % 37.4 % (19-41); Mean Corp Hgb Conc 31.6 g/dL (32-36); Mean Corpuscular Hgb 28.8 pg (27.0-32.0); Mean Platelet Vol. 11.3 fl (6.2-12.0); Monocyte# 0.48 X10^3/uL; Monocyte% 7.7 % (0-10); NRBC Flagged by Analyzer 0 % (0-5); Neutrophil # 3.26 X10^3/uL (2.7-7.7); Neutrophil % 52.3 % (47-70); Platelet Count 203 K/mm3 (150-450); RBC Distribution Width CV 12.4 % (11.6-14.6); RBC Distribution Width SD 41.1 fl (35.1-43.9); Red Blood Count 4.76 M/mm3 (4.2-5.4); White Blood Count 6.2 K/mm3 (4.4-11.0)
[2023-03-06 12:46] LABS: Free T3 2.9 pg/mL (2.18-3.98)
[2023-03-06 13:16] LABS: AST(SGOT) 19 U/L (15-37); Alanine Aminotransfer ALT/SGPT 28 U/L (13-56); Albumin, Serum 3.7 g/dL (3.2-5.0); Alkaline Phosphatase 75 U/L (45-117); Anion Gap 5 (5-15); BUN 25 mg/dL (7-18); BUN/Creat Ratio 33.7 RATIO (10-20); Calcium,Total 10.4 mg/dL (8.5-10.1); Chloride 106 mmol/L (98-107); Creatinine, Serum 0.74 mg/dL (0.55-1.02); EST Glomerular Filtration Rate 83 mL/min (>60); Est Glom Filt Rate - Afr Amer 101 mL/min (>60); Globulin 3.7 g/dL (2.2-4.2); Glucose 103 mg/dL (74-106); Protein, Total 7.4 g/dL (6.4-8.2); Sodium Level 139 mmol/L (136-145); Thyroid Stim Hormone (TSH) 0.71 uIU/mL (0.358-3.74)
[2023-03-09 13:07] LABS: T3 Reverse 13.5 ng/dL (9.2-24.1)
== END | disposition home or self-care (01) ==
PROVIDERS: Internal Medicine Endocrinology, Diabetes & Metabolism; PCP Internal Medicine; Referring Provider Internal Medicine; Visit Provider Internal Medicine
DX: M54.9 Dorsalgia, unspecified (principal); G89.29 Other chronic pain; E05.90 Thyrotoxicosis, unspecified without thyrotoxic crisis or storm
CPT/HCPCS: 36415; 72110; 80053; 84439; 84443; 84481; 84482; 85025

== ENCOUNTER → 2023-03-16 | Outpatient (CLI) | payer MEDICARE, SELFPAY ==
--- NOTE | 2023-03-16 12:32 | US_ITS ---
ACR Level 3 findings have been noted. An addendum which confirms receipt of the report will follow. EXAM: US SOFT TISSUES HEAD AND NECK, THYROID CLINICAL INDICATION: Thyroid Nodules TECHNIQUE: Greyscale and color doppler imaging was performed of the thyroid gland. COMPARISON: Thyroid ultrasound, 07/08/2018 and 04/02/2017. FINDINGS: LEFT THYROID LOBE: The left thyroid lobe measures 3.6 x 1.2 x 1.0 cm. Left upper pole thyroid nodule measuring 0.9 x 0.8 x 0.7 cm. This nodule is solid or almost completely solid, hyperechoic or isoechoic, jjeat-mvbn-fwna, ill-defined and contains microcalcifications. TI-RADS points: 4. TI-RADS category: TR4. This nodule is moderately suspicious but no FNA or follow-up is necessary given the small size of this nodule. Left lower pole spongiform thyroid nodule measuring 0.5 cm. TI-RADS points: 0. TI-RADS category: TR1. This nodule is benign and no FNA or follow-up is necessary. Left lower pole thyroid nodule measuring 0.6 x 0.3 x 0.6 cm. This nodule is mixed cystic and solid, anechoic, [id number]-ktmu-axkl, smoothly marginated and contains no echogenic foci. TI-RADS points: 1. TI-RADS category: TR1. This nodule is benign and no FNA or follow-up is necessary. RIGHT THYROID LOBE: The right thyroid lobe measures 5.4 x 1.5 x 2.0 cm. 1.7 x 1.5 x 0.8 cm right upper pole thyroid nodule. This nodule is solid or almost completely solid, hyperechoic or isoechoic, djmop-fpvk-pakj, ill-defined and contains microcalcifications. TI-RADS points: 4. TI-RADS category: TR4. This nodule is moderately suspicious. Recommend FNA evaluation. 1.1 x 0.7 x 1.0 cm right mid thyroid nodule. This nodule is solid or almost completely solid, hyperechoic or isoechoic, [id number]-[id number], smoothly marginated and contains no echogenic foci. TI-RADS points: 3. TI-RADS category: TR3. This nodule is mildly suspicious but no FNA or follow-up is necessary given the small size of this nodule. .3 x 0.7 x 0.9 cm right inferior pole thyroid nodule. This nodule is solid or almost completely solid, hyperechoic or isoechoic, iiplo-jtnz-wkup, ill-defined and contains microcalcifications. TI-RADS points: 4. TI-RADS category: TR4. This nodule is moderately suspicious. Recommend follow-up thyroid ultrasound in 2 years. 1.7 x 1.0 x 1.3 cm right inferior thyroid nodule. This nodule is solid or almost completely solid, hyperechoic or isoechoic, tmhfu-hxrr-eemo, ill-defined and contains microcalcifications. TI-RADS points: 4. TI-RADS category: TR4. This nodule is moderately suspicious. Recommend FNA evaluation. ISTHMUS: The thyroid isthmus measures 0.3 cm. No thyroid nodules are present. US/Thyroid IMPRESSION: Multiple thyroid nodules bilaterally as detailed above. Recommend FNA of the 1.7 cm right upper pole thyroid nodule and a 1.7 cm right inferior thyroid nodule. Otherwise, follow recommendations as above for the remainder of the thyroid nodules identified. Electronically Signed: Lazaro Way DO at 19:37 EDT ,
== END | disposition home or self-care (01) ==
LOC: US 12:32
PROVIDERS: PCP Internal Medicine; Referring Provider Internal Medicine; Visit Provider Internal Medicine
DX: E04.1 Nontoxic single thyroid nodule (principal)
CPT/HCPCS: 76536

== ENCOUNTER → 2023-04-09 | Outpatient (CLI) | payer MEDICARE, SELFPAY ==
--- NOTE | 2023-04-09 | FLU_PTH ---
PATIENT: NELSON GOMEZ LOC: [facility] U#:[id number] AGE/SX: 67/F ROOM: RE04/09/[address]: Dr. Mika Mejia MD : 1955 BED: DIS: 04/09/2023 SPEC #: [id number] RECD: 04/09/23 13:48 STATUS: GAGE CODI #: [id number] GABRIEL: 04/09/23 00:[address]: Mika Mejia DEPT: CYTOLOGY RECD BY: David Alegria ENTERED: 04/09/23 13:50 SP TYPE: Fluid OTHR DR: Dr. Dior Sanchez MD Tissues: A - Thyroid gland, NOS B - Thyroid gland, NOS C - Thyroid gland, NOS D - Thyroid gland, NOS Procedures: Special Stain Group II Surgery Specimen Level IV Cytospin Fluid Cytology Other HEADER OPERATION: Fine needle aspiration right thyroid nodules PRE-OP DIAGNOSIS: Right thyroid nodules TISSUE SUBMITTED: A - Right superior thyroid nodule fluid, B - Right superior thyroid nodule x4 slides, C - Right inferior thyroid nodule fluid, D - Right inferior thyroid nodule x4 slides DIAGNOSIS CYTOLOGY A. Right superior thyroid nodule fluid, fine needle aspiration (cytospin and cell block): Consistent with benign follicular/colloid nodule ([place] Category II). Adequate for evaluation. See comment. B. Right superior thyroid nodule, fine needle aspiration (smears): Consistent with benign follicular/colloid nodule ([place] Category II). Adequate for evaluation. See comment. C. Right inferior thyroid nodule fluid, fine needle aspiration (cytospin and cell block): Consistent with benign follicular/colloid nodule with cystic changes ([place] Category II). Adequate for evaluation. See comment. D. Right inferior thyroid nodule, fine needle aspiration (smears): Consistent with benign follicular/colloid nodule with cystic changes ([place] Category II). Adequate for evaluation. See comment. SJ:rg 04/10/2023 COMMENT Correlation with clinical, radiologic findings and appropriate follow up are necessary. The [place] System for thyroid diagnostic categorization was used in the evaluation of this case. CYTOLOGY STUDY Slides are reviewed. CYTOLOGY GROSS A - Received is 15 ml of red fluid labeled with the patient's name and and designated per the requisition as right superior thyroid nodule. Submitted for cytology preparation including cell block. B - Received are four smears labeled with the patient's name and designated per the requisition as right superior thyroid nodule. Submitted for staining. C - Received is 15 ml of red fluid labeled with the patient's name and and designated per the requisition as right inferior thyroid nodule. Submitted for cytology preparation including cell block. D - Received are four smears labeled with the patient's name and designated per the requisition as right inferior thyroid nodule. Submitted for staining. / lazaro 04/09/2023 TC:5 CPT: 03646 x4, 77517 x2
== END | disposition home or self-care (01) ==
LOC: LABSPEC 12:50
PROVIDERS: PCP Internal Medicine; Visit Provider Surgery
DX: E04.1 Nontoxic single thyroid nodule (principal)
CPT/HCPCS: 88108; 88161; 88305; 88313

== ENCOUNTER → 2023-04-15 | Outpatient (CLI) | payer MEDICARE, SELFPAY ==
[2023-04-15 15:30] LABS: CRP 3.79 mg/L (0.0-3.0); Magnesium 1.8 mg/dL (1.6-2.6)
[2023-04-15 15:38] LABS: Erythrocyte Sedimentation Rate 7 mm/hr (0-30)
[2023-04-17 12:09] LABS: ANTINUCLEAR ANTIBODIES DIRECT Negative (Negative)
== END | disposition home or self-care (01) ==
LOC: BIMLAB 11:57
PROVIDERS: Internal Medicine; PCP Internal Medicine; Referring Provider Internal Medicine; Visit Provider Internal Medicine
DX: M79.10 Myalgia, unspecified site (principal)
CPT/HCPCS: 36415; 83735; 85652; 86038; 86140; 86225; 86235

== ENCOUNTER → 2023-07-06 | Outpatient (CLI) | payer MEDICARE, SELFPAY ==
--- NOTE | 2023-07-06 12:05 | BI_ITS ---
MAMMOGRAPHY - BILATERAL SCREENING REASON FOR EXAM: Female, 68 years old. Routine annual screening examination. PERTINENT HISTORY: Sister with breast cancer. TECHNIQUE: Digital bilateral breast arnulfo (3D mammographic acquisition) in the CC and MLO projections. 2-D mediolateral oblique (MLO) and craniocaudad (CC) views of both breasts were obtained. CAD: Full Field Digital Mammography with Computer Added Detection was performed. COMPARISON: Comparison is made with prior study dated July 04, 2022 and July 03, 2021. FINDINGS: Breast Composition: The breasts are extremely dense, which lowers the sensitivity of mammography. There are no dominant masses or suspicious calcifications. Stable small benign-appearing bilateral axillary lymph nodes. No other significant abnormalities are identified. There has been no significant change since the prior study. BI/SCRN MAMM (CAD)W/ARNULFO BILAT IMPRESSION: Stable bilateral screening mammogram. Yearly follow-up mammogram recommended. (A) ASSESSMENT CATEGORY: BIRADS Category 2: Benign. A letter regarding these results will be sent to the patient by the facility within 30 days. Approximately 10% of breast cancers are not detected by mammography. A normal mammogram should not delay biopsy of a clinically suspicious abnormality. [id number] Electronically Signed: Nick Rojo MD at 13:36 EST ,
== END | disposition home or self-care (01) ==
PROVIDERS: PCP Internal Medicine; Referring Provider Nurse Practitioner Women's Health; Visit Provider Nurse Practitioner Women's Health
DX: Z12.31 Encounter for screening mammogram for malignant neoplasm of breast (principal)
CPT/HCPCS: 77063; 77067

== ENCOUNTER 2023-07-08 13:26 | Outpatient (RCR) | payer MEDICARE, SELFPAY ==
--- NOTE | 2023-09-14 09:50 | HP.PT.NRP ---
Patient Information Patient Information: NELSON GOMEZ was seen in my office for initial evaluation on . The following Plan of Care was established for this patient: Anticipated Interventions Therapeutic Exercise to Include: Strength training, Power training, Passive ROM, Active ROM and Scapular Strength/Stabilization For the Purpose of:: To decrease pain, To increase ROM, To improve nutrient delivery to tissue, To increase oxygenation perfusion and To improve muscle performance and motor function Manual Therapy Techniques to Include: Manipulation, Functional dry needling and Soft tissue mobilization For the Purpose of:: To decrease pain, To increase ROM, To improve nutrient delivery to tissue, To increase oxygenation perfusion and To decrease soft tissue restriction Last Seen Last Seen: This patient was last seen in our office 07/08/23. Pertinent comments regarding their Physical therapy will appear below: Pt. was seen in PT for self pay DN. Pt. came to 1 visit, but has not been back in several months. PT will be DC from PT at this point in time. At this point I will be discontinuing this patient from physical therapy. I would be happy to see this patient again in the future if found appropriate by the physician. Thank you! Gal Kwok, DPT Balance/Gait/Functional tests Balance/Special Test Scores Oswestry Low Back Score: 27
== END 2023-07-08 19:00 | disposition home or self-care (01) ==
LOC: PT 13:26
PROVIDERS: PCP Internal Medicine
DX: M54.9 Dorsalgia, unspecified (principal)

== ENCOUNTER → 2023-09-01 | Outpatient (CLI) | payer MEDICARE, SELFPAY | END | disposition home or self-care (01) | PROVIDERS: PCP Internal Medicine; Referring Provider Nurse Practitioner Women's Health; Visit Provider Nurse Practitioner Women's Health | DX: R30.0 Dysuria (principal) | CPT/HCPCS: 87086 ==

== ENCOUNTER → 2023-09-07 | Outpatient (CLI) | payer MEDICARE, SELFPAY ==
--- NOTE | 2023-09-07 14:17 | US_ITS ---
STUDY: ULTRASOUND OF THE FEMALE PELVIS - COMPLETE REASON FOR EXAM: Female, 68 years old. Pelvic pain and pressure LMP: Patient is postmenopausal. TECHNIQUE: Transabdominal and Transvaginal TECHNICAL QUALITY: Adequate. COMPARISON: None. FINDINGS: The uterus is anteflexed and is in a midline position. The uterus measures 5.1 cm x 4 cm x 2.3 cm. Normal uterine cervix. The endometrium measures 2.6 mm in thickness, and is hyperechoic. There is a 3 mm x 2 mm x 3 mm endometrial cyst. There is no demonstrated myometrial mass. I.U.D. - The patient does not have an I.U.D. The right ovary is visualized. The right ovary measures 2.1 cm x 1.3 cm x 1 cm. There is no right ovarian cyst or ovarian mass. There is no visualized right adnexal mass or complex lesion. There is normal arterial and normal venous vascularity. The left ovary is visualized. The left ovary measures 1.1 cm x 1.1 cm x 1 cm. There is no left ovarian cyst or ovarian mass. There is no visualized left adnexal mass or complex lesion. There is normal arterial and normal venous vascularity. There is no fluid in the cul-de-sac. The pre void volume of the bladder was 269 ml. Polycystic ovary disease: No. US/Transvaginal Non- IMPRESSION: 3 mm x 2 mm x 2 mm endometrial cyst. Electronically Signed: Nick Rojo MD at 12:17 EDT ,
== END | disposition home or self-care (01) ==
LOC: US 14:17
PROVIDERS: PCP Internal Medicine; Referring Provider Nurse Practitioner Women's Health; Visit Provider Nurse Practitioner Women's Health
DX: R10.2 Pelvic and perineal pain (principal)
CPT/HCPCS: 76830; 76856

== ENCOUNTER → 2024-03-08 | Outpatient (CLI) | payer MEDICARE, SELFPAY ==
--- NOTE | 2024-03-08 11:50 | US_ITS ---
STUDY: THYROID ULTRASOUND REASON FOR EXAM: Female, 68 years old. Yearly check- nodules TECHNIQUE: Ultrasound evaluation of the thyroid was performed with real-time and static jean-baptiste-scale imaging. COMPARISON: 03/16/2023. FINDINGS: RIGHT LOBE: The right lobe of the thyroid gland measures 5.4 x 1.9 x 1.5 cm. There is a heterogeneous echotexture. Therefore complex solid nodules in the thyroid lobe. Nodule 1 in the anterior upper thyroid lobe measures 1.34 x 0.77 x 1.10 cm. Solid hypoechoic nodule 2 in the posterior mid thyroid lobe measures 1.74 x 0.73 x 1.6 cm. Solid complex nodule 3 with calcifications posterior lateral lower thyroid lobe measures 2.4 x 1.41 x 1.47 cm. Solid hypoechoic nodule 4 with small central calcification in the medial lower thyroid lobe measures 1.46 x 0.63 x 1.2 cm. LEFT LOBE: The left lobe of the thyroid gland measures 4.7 x 1.3 x 1.1 cm. There is a heterogeneous echotexture. There are 2 complex nodules in the left thyroid lobe. Solid nodule 1 in the upper central thyroid lobe is hypoechoic with central calcification. This measures 0.86 x 0.70 x 0.60 cm. Mixed solid and cystic nodule 2 in the medial aspect of the report thyroid lobe measures 0.75 x 0.41 x 0.53 cm. ISTHMUS: The isthmus measures 0.3 cm. . US/Thyroid IMPRESSION: 1. 4 complex nodules in the right thyroid lobe and 2 complex nodules in the left thyroid lobe. Previously 4 complex nodules in the right thyroid lobe and 3 complex nodules in the left thyroid lobe. 2. Nodule 1 in the right anterior upper thyroid lobe measures 1.34 x 0.77 x 1.10 cm, previously 1.65 x 0.77 x 1.65 cm. TI-RADS points: 3. TI-RADS category: TR3. This nodule is mildly suspicious but no FNA or follow-up is necessary given the small size of this nodule. 3. Solid hypoechoic nodule 2 in the right posterior mid thyroid lobe measures 1.74 x 0.73 x 1.6 cm, previously 1.13 x 0.71 x 1.02 cm. TI-RADS points: 4. TI-RADS category: TR4. This nodule is moderately suspicious. Recommend FNA evaluation. 4. Solid complex nodule 3 with calcifications in the right posterior lateral lower thyroid lobe measures 2.4 x 1.41 x 1.47 cm, previously 1.25 x 0.68 x 0.93 cm. TI-RADS points: 4. TI-RADS category: TR4. This nodule is moderately suspicious. Recommend FNA evaluation. 5. Solid hypoechoic nodule 4 with central calcification in the right medial lower thyroid lobe measures 1.46 x 0.63 x 1.2 cm, previously 1.70 x 0.99 x 1.31 cm. TI-RADS points: 4. TI-RADS category: TR4. This nodule is moderately suspicious. Recommend FNA evaluation. 6. Solid nodule 1 in the left upper central thyroid lobe is hypoechoic with central calcification. This measures 0.86 x 0.70 x 0.60 cm, previously 0.85 x 0.65 x 0.77 cm. TI-RADS points: 8. TI-RADS category: TR5. This nodule is highly suspicious. Recommend follow-up thyroid ultrasounds annually for 4 years. 7. Mixed solid and cystic nodule 2 in the medial aspect of the left lower thyroid lobe measures 0.75 x 0.41 x 0.53 cm, previously 0.64 x 0.29 x 0.60 cm. TI-RADS points: 2. TI-RADS category: TR2. This nodule is not suspicious and no FNA or follow-up is necessary. Electronically Signed: See Delgadillo MD at 12:03 EDT ,
== END | disposition home or self-care (01) ==
PROVIDERS: PCP Internal Medicine; Referring Provider Surgery; Visit Provider Surgery
DX: E04.1 Nontoxic single thyroid nodule (principal)
CPT/HCPCS: 76536

== ENCOUNTER → 2024-03-18 | Outpatient (CLI) | payer MEDICARE, SELFPAY ==
--- NOTE | 2024-03-18 10:44 | RAD_ITS ---
INDICATION: Bilateral Shoulder Pain EXAMINATION/TECHNIQUE: X-RAY - RIGHT XR Shoulder Min 2 Views COMPARISON: 05/05/2017 FINDINGS: SOFT TISSUES: No soft tissue swelling or gas. No radiopaque foreign body. BONES/JOINTS: 1. No acute fracture or subluxation.. Normal alignment. Preservation of the joint space.. No sclerotic or destructive changes observed. 2. There is normal glenohumeral motion. There is normal alignment of the acromioclavicular joint. 3. The clavicle, acromion, scapula and rib cage have normal appearance. RAD/Shoulder min 2 Views IMPRESSION: 1. Stable exam. 2. No fracture malalignment or focal bony or joint space abnormality involving the shoulder.. Electronically Signed: Vasile Mccoy MD at 19:46 EDT ,
--- NOTE | 2024-03-18 10:46 | RAD_ITS ---
INDICATION: pain EXAMINATION/TECHNIQUE: X-RAY - LEFT XR Shoulder Min 2 Views COMPARISON: No previous relevant examinations for comparison. FINDINGS: SOFT TISSUES: No soft tissue swelling or gas. No radiopaque foreign body. BONES/JOINTS: 1. No acute fracture or subluxation.. Normal alignment. Preservation of the joint space.. No sclerotic or destructive changes observed. 2. There is normal glenohumeral motion. There is normal alignment of the acromioclavicular joint. 3. The clavicle, acromion, scapula and rib cage have normal appearance. RAD/Shoulder min 2 Views IMPRESSION: 1. No fracture malalignment or focal bony or joint space abnormality involving the shoulder.. Electronically Signed: Vasile Mccoy MD at 19:46 EDT ,
[2024-03-18 12:11] LABS: Absolute Lymphocyte Count 2.13 X10^3/uL (0.83-4.51); Absolute Neutrophil Count 3.6 X10^3/uL (2.0-7.7); Basophil# 0.02 X10^3/uL; Basophil% 0.3 % (0-1); Eosinophil# 0.11 X10^3/uL; Eosinophils% 1.7 % (0-5); Hematocrit 44.8 % (37-47); Hemoglobin 14.2 g/dL (12.0-15.0); Lymphocyte # 2.13 X10^3/ul (0.83-4.51); Mean Corp Hgb Conc 31.7 g/dL (32-36); Mean Corpuscular Hgb 28.2 pg (27.0-32.0); Mean Corpuscular Volume 89.1 fL (81-99); Mean Platelet Vol. 11.3 fl (6.2-12.0); Monocyte# 0.57 X10^3/uL; Monocyte% 8.8 % (0-10); NRBC Flagged by Analyzer 0 % (0-5); Neutrophil # 3.59 X10^3/uL (2.7-7.7); Neutrophil % 55.6 % (47-70); Platelet Count 198 K/mm3 (150-450); RBC Distribution Width SD 39.2 fl (35.1-43.9); Red Blood Count 5.03 M/mm3 (4.2-5.4); White Blood Count 6.5 K/mm3 (4.4-11.0)
[2024-03-18 12:56] LABS: ALB/GLOB Ratio 0.9 RATIO (0.9-2.4); AST(SGOT) 16 U/L (15-37); Alanine Aminotransfer ALT/SGPT 20 U/L (13-56); Albumin, Serum 3.5 g/dL (3.2-5.0); Alkaline Phosphatase 81 U/L (45-117); Anion Gap 5 (5-15); BUN 25 mg/dL (7-18); BUN/Creat Ratio 36.7 RATIO (10-20); Calcium,Total 10.5 mg/dL (8.5-10.1); Chloride 106 mmol/L (98-107); Cholesterol 169 mg/dL (200); Creatinine, Serum 0.68 mg/dL (0.55-1.02); EST Glomerular Filtration Rate 92 mL/min (>60); Est Glom Filt Rate - Afr Amer 111 mL/min (>60); Globulin 3.9 g/dL (2.2-4.2); Glucose 92 mg/dL (74-106); High Density Lipoprotein 65 mg/dL; Potassium 4.4 mmol/L (3.5-5.1); Protein, Total 7.4 g/dL (6.4-8.2); Sodium Level 141 mmol/L (136-145); Triglycerides 111 mg/dL; Very Low Density Lipoprotein 22 mg/dL (5-40)
[2024-03-18 14:29] LABS: Hemoglobin A1c 5.6 % (3.8-5.6)
== END | disposition home or self-care (01) ==
PROVIDERS: PCP Internal Medicine; Referring Provider Internal Medicine; Visit Provider Internal Medicine
DX: M25.511 Pain in right shoulder (principal); M25.512 Pain in left shoulder; I10 Essential (primary) hypertension; R73.03 Prediabetes
CPT/HCPCS: 36415; 73030; 80053; 80061; 83036; 85025

== ENCOUNTER → 2024-03-25 | Outpatient (CLI) | payer MEDICARE, SELFPAY ==
--- NOTE | 2024-03-25 08:00 | FLU_PTH ---
PATIENT: NELSON GOMEZ LOC: [facility] U#:[id number] AGE/SX: 68/F ROOM: RE03/25/[address]: Dr. Mika Mejia MD : 1955 BED: DIS: 03/25/2024 SPEC #: [id number] RECD: 03/25/24 11:12 STATUS: GAGE CODI #: [id number] GABRIEL: 03/25/24 08:[address]: Mika Mejia DEPT: CYTOLOGY RECD BY: Gabrielle Campos ENTERED: 03/25/24 12:07 SP TYPE: Fluid OTHR DR: Dr. Dior Sanchez MD Tissues: A - Thyroid gland, NOS B - Thyroid gland, NOS C - Thyroid gland, NOS D - Thyroid gland, NOS Procedures: Special Stain Group II Surgery Specimen Level IV Cytospin Fluid Cytology Other HEADER OPERATION: Fine needle aspiration of thyroid nodule PRE-OP DIAGNOSIS: Thyroid nodule TISSUE SUBMITTED: A- Right mid thyroid nodule fluid, B- Right mid thyroid nodule slides, C- Right lower thyroid nodule fluid, D- Right lower thyroid nodule slides DIAGNOSIS CYTOLOGY A. Fine needle aspiration, right mid thyroid nodule (cytospins and cellblock): Negative for malignant cells. See comment. B. Fine needle aspiration, right mid thyroid nodule (smears): Adequate for evaluation. Consistent with benign follicular nodule ([place] Category II). See comment. C. Fine needle aspiration, right lower thyroid nodule (cytospins and cellblock): Negative for malignant cells. See comment. D. Fine needle aspiration, right lower thyroid nodule (smears): Consistent with benign follicular nodule ([place] Category II). See comment. 03/28/2024 COMMENT A. Rare benign appearing follicular cells are present. B. The [place] System for thyroid diagnostic categorization was used in the evaluation of this case.C. The specimen is virtually acellular. D. The [place] System for thyroid diagnostic categorization was used in the evaluation of this case. Case has been reviewed in consultation with Dr. Palacio who concurs with the above diagnosis. IDC:SJ Clinical correlation is suggested. CYTOLOGY STUDY Slides are reviewed. CYTOLOGY GROSS A. Received is 30 ml of red-cloudy fluid labeled with the patient's name and and designated per the requisition as Right mid thyroid nodule. Submitted for cytology preparation including cell block. B. Received are 4 smears labeled with the patient's name and designated per the requisition as Right mid thyroid nodule. Submitted for staining. C. Received is 30 ml of red-cloudy fluid labeled with the patient's name and and designated per the requisition as Right lower thyroid nodule. Submitted for cytology preparation including cell block. D. Received are 4 smears labeled with the patient's name and designated per the requisition as Right lower thyroid nodule. Submitted for staining. 03/25/2024 TC:5 CPT: 24506i9,46581s1
== END | disposition home or self-care (01) ==
LOC: LABSPEC 11:54
PROVIDERS: PCP Internal Medicine; Referring Provider Surgery; Visit Provider Surgery
DX: E04.1 Nontoxic single thyroid nodule (principal)
CPT/HCPCS: 88108; 88161; 88305; 88313

== ENCOUNTER → 2024-07-19 | Outpatient (CLI) | payer MEDICARE, SELFPAY ==
--- NOTE | 2024-07-19 09:57 | BI_ITS ---
PROCEDURE: SCRN MAMM (CAD)W/ARNULFO BILAT REASON FOR EXAM: F, Age 69 y/o, sister with breast cancer. TECHNIQUE: Bilateral screening digital breast tomosynthesis with 2D and 3D images. Computer aided detection. COMPARISON: Prior exam(s) dating back to July 04, 2022.. FINDINGS: The breasts are extremely dense which lowers the sensitivity of mammography. Stable fat containing axillary lymph nodes. No suspicious masses, areas of developing architectural distortion, or suspicious calcifications. BI/SCRN MAMM (CAD)W/ARNULFO BILAT IMPRESSION: BI-RADS 1: NEGATIVE. RECOMMEND ANNUAL MAMMOGRAPHIC SCREENING. Follow-up code: Routine Follow-up The patient will be notified of the results by letter. Reading Location: [id number]
== END | disposition home or self-care (01) ==
PROVIDERS: PCP Internal Medicine; Referring Provider Nurse Practitioner Women's Health; Visit Provider Nurse Practitioner Women's Health
DX: Z12.31 Encounter for screening mammogram for malignant neoplasm of breast (principal)
CPT/HCPCS: 77063; 77067

== ENCOUNTER → 2024-11-10 | Outpatient (CLI) | payer MEDICARE, SELFPAY ==
--- NOTE | 2024-11-10 08:34 | VDLE_ITS ---
Reason For Study Reason For Study: Pain RIGHT LEFT CFV is compressible, spontaneous, phasic, competent CFV is compressible, spontaneous, phasic, competent, and demonstrates normal augmentation. and demonstrates normal augmentation. FV is compressible, spontaneous, phasic, competent FV is compressible, spontaneous, phasic, competent and demonstrates normal augmentation. and demonstrates normal augmentation. POP V is compressible, spontaneous, phasic, competent POP V is compressible, spontaneous, phasic, competent and demonstrates normal augmentation. and demonstrates normal augmentation. T/P Trunk is compressible. T/P Trunk is compressible. PTV is compressible. PTV is compressible. RT PerV is compressible. LT PerV is compressible. SFJ is INCOMPETENT and measures 0.71 cm. SFJ is INCOMPETENT and measures 0.75 cm. GSV proximal thigh measures 0.34x0.38 cm. GSV proximal thigh measures 0.32x0.40 cm. GSV at knee measures 0.31x0.36 cm. GSV at knee measures 0.33x0.35 cm. GSV is competent throughout. GSV above knee is INCOMPETENT for greater than 0.5 SSV mid calf is competent and measures 0.25x0.30 cm. seconds. Procedure GSV below knee is competent. This is a venous duplex using B-mode, color flow and SSV mid calf is INCOMPETENT for greater than 0.5 spectral Doppler. seconds and measures 0.25x0.30 cm. Exam performed in department. Incompetent [employer] noted in the posterior mid The exam was diagnostic. calf 15 cm above medial malleolus. Patient was scanned in reverse Trendelenburg position during reflux assessment. VL/Venous Duplex US - Desahwn Extrem Interpretation Summary Deep veins of the bilateral lower extremities are patent and compressible segme ntally. There is no evidence of bilateral lower extremity deep vein thrombosis. The bilateral great saphenous veins appea r patent and compressible segmentally. Positive for reflux in the right saphenofemoral junction. Positive for reflux in the left saphenofemoral junction, great saphenous vein a nazario the knee, small saphenous vein, and [employer] in the calf. Ordering Physician: Brandie Youngblood Referring Physician: Dior Sanchez Performed By: Kavya Schreiber RVT
== END | disposition home or self-care (01) ==
LOC: CVS 08:34
PROVIDERS: PCP Internal Medicine; Referring Provider Physician Assistant; Visit Provider Physician Assistant
DX: I87.2 Venous insufficiency (chronic) (peripheral) (principal); I78.1 Nevus, non-neoplastic; M79.604 Pain in right leg; M79.605 Pain in left leg
CPT/HCPCS: 93970

== ENCOUNTER → 2024-11-14 | Outpatient (CLI) | payer MEDICARE, SELFPAY ==
[2024-11-14 12:50] LABS: Anion Gap 10 (5-15); BUN 17 mg/dL (4-19); BUN/Creat Ratio 27.3 RATIO (10-20); Calcium,Total 10.4 mg/dL (7.6-11.0); Carbon Dioxide 28.2 mmol/L (21.0-32.0); Chloride 104 mmol/L (98-108); Creatinine, Serum 0.63 mg/dL (0.70-1.20); EST Glomerular Filtration Rate 97 (>60); Glucose 125 mg/dL (70-99); Sodium Level 142 mmol/L (133-145)
--- OUTSIDE RECORDS SUMMARY | 2024-11-14 22:47 | XMS RPT_ITS | CCD ---
Author Organization [facility] Care Team Providers Care Rail Director Name Role Phone Dr. Dior Sanchez Primary Care Provider [phone] Dr. Dior Sanchez Referring Provider [phone] JER Vega NP Attending Provider Dr. Dior Sanchez Attending Provider [phone] JER León Attending Provider Dr. Dior Sanchez Primary Care Provider [phone] Dr. Dior Sanchez Referring Provider [phone] JER León Attending Provider Dr. Dior Sanchez Primary Care Provider [phone] Dr. Dior Sanchez Attending Provider [phone] Dr. Dior Sanchez Referring Provider [phone] JER León Attending Provider Dr. Dior Sanchez Primary Care Provider [phone] Dr. Dior Sanchez Referring Provider [phone] JER Morgan NP Attending Provider [phone] Dr. Thong Martinez Attending Provider Dr. Dior Sanchez Attending Provider [phone] ANGIE Phillips Attending Provider Dr. Dior Sanchez Primary Care Provider [phone] Dr. Dior Sanchez Referring Provider [phone] Laura, Dr. Rader Attending Provider [phone] Laura, Dr. Rader Primary Care Provider [phone] Laura, Dr. Rader Attending Provider [phone] Laura, Dr. Rader Referring Provider [phone] Dr. Mika Mejia Attending Provider Dr. Rachel Littlejohn Attending Provider [phone] Laura, Dr. Rader Primary Care Provider [phone] Laura, Dr. Rader Attending Provider [phone] Laura, Dr. Rader Referring Provider [phone] Silvia YIELD CLERK, YIELD CLERK-C Mariella Attending Provider [phone] Oleghe, Efewongbe Primary Care Unavailable Oleghe, Efewongbe Attending Unavailable Oleghe, Efewongbe Referring Unavailable Oleghe, Efewongbe Primary Care Unavailable Youngblood, Brandie Attending Unavailable Oleghe, Efewongbe Referring Unavailable Oleghe, Efewongbe Primary Care Unavailable Oleghe, Efewongbe Attending Unavailable Oleghe, Efewongbe Referring Unavailable Oleghe, Efewongbe Primary Care Unavailable Youngblood, Brandie Attending Unavailable Youngblood, Brandie Referring Unavailable Oleghe, Efewongbe Primary Care Unavailable Mika Mejia Attending Unavailable Mika Mejia Referring Unavailable Oleghe, Efewongbe Primary Care Unavailable Oleghe, Efewongbe Attending Unavailable Oleghe, Efewongbe Referring Unavailable Oleghe, Efewongbe Primary Care Unavailable Mika Mejia Attending Unavailable Mika Mejia Referring Unavailable Mariella Vega Attending Unavailable Mariella Vega Referring Unavailable Oleghe, Efewongbe Primary Care Unavailable Oleghe, Efewongbe Primary Care Unavailable Mika Mejia Attending Unavailable Oleghe, Efewongbe Referring Unavailable Oleghe, Efewongbe Primary Care Unavailable Oleghe, Efewongbe Attending Unavailable Oleghe, Efewongbe Referring Unavailable Oleghe, Efewongbe Primary Care Unavailable Mariella Vega Attending Unavailable Dior Sanchez Referring Unavailable Cristian Worthington Attending Unavailable Dior Sanchez Primary Care Unavailable Selvin TORRES, Dr. Brown Primary Care Provider Laura TORRES, Dr. Rader Primary Care Provider Laura TORRES, Dr. Rader Referring Provider Silvia YIELD CLERK-CMariella Attending Provider Silvia YIELD CLERK-CMariella Referring Provider Laura TORRES, Dr. Rader Attending Provider Brandie Krishna Attending Provider [phone] Brandie Krishna Referring Provider [phone] Ander TORRES, Dr. Foster Attending Provider [phone] Allergies Allergy Classification Reported Allergen(s) Allergy Type Date of Onset Reaction(s) Facility (14 sources) Amoxicillin Drug Allergy 07-15-19 22 Hives [facility] (6 sources) decongestants Allergy to substance 07-15-19 22 [facility] Work Phone: (8 sources) [facility]-19 [facility] ([facility]) [facility] Drug Allergy 10-28-19 25 [facility] (1 source) Chlorpheniramine Drug Allergy 10-28-19 25 [facility] (1 source) Pseudoephedrine Drug Allergy 10-28-19 25 [facility] Medications Current Medications Medication Drug Class(es) Dates Sig (Normalized) Sig (Original) cholecalciferol 0.025 mg oral capsule (20 sources) Vitamin D Start: 07-16-2020 Cholecalciferol (Vitamin D3) 25 mcg (1,000 unit) capsule Active 25 ug PO MOWEFR July 16, 2020 1:00am Start: 11-21-2019 End: 07-02-2020 take 1 capsule by mouth once daily Cholecalciferol (Vitamin D3) 25 mcg (1,000 unit) capsule Discontinued 25 ug PO DAILY November 21, 2019 12:00am July 02, 2020 10:38am Start: 06-17-2017 End: 11-21-2019 take 1 capsule by mouth once Cholecalciferol (Vitamin D3) 2,000 unit capsule Discontinued 2000 U PO ONCE June 17, 2017 1:00am November 21, 2019 1:54pm Start: 05-14-2017 End: 05-21-2017 take 1 capsule by mouth once Cholecalciferol (Vitamin D3) 2,000 unit capsule Discontinued 2000 U PO ONCE May 14, 2017 1:00am May 21, 2017 3:07pm complexion vitamin (14 sources) Start: 07-03-2021 complexion vit trevizo Active PO July 03, 2021 1:56pm Start: 07-03-2021 End: 01-13-2022 complexion vitamin Discontin ued PO July 03, 2021 12:00am January 13, 2022 9:12am Start: 07-03-2021 End: 01-13-2022 complexion vitamin Discontin ued PO July 03, 2021 1:00am January 13, 2022 10:12am Start: 07-03-2021 complexion vit trevzio Active PO July 03, 2021 1:00am esomeprazole 20 mg delayed release oral capsule (20 sources) Proton Pump Inhibitor Start: 08-24-2020 End: 09-14-2024 take 1 capsule by mouth once daily Esomeprazole Magnesium 20 mg capsule,delayed release(DR/EC) Active 20 mg PO DAILY September 14, 2024 11:06am Start: 01-16-2020 End: 07-02-2020 take 1 capsule by mouth once daily Esomeprazole Magnesium (Nexium) 20 mg capsule,delayed release(DR/EC) Discontinued 20 mg PO DAILY January 16, 2020 12:00am July 02, 2020 10:38am Start: 06-17-2017 End: 01-16-2020 take 2 capsules by mouth once daily Esomeprazole Magnesium (Nexium) 20 mg capsule,delayed release(DR/EC) Discontinued 40 mg PO daily June 17, 2017 7:04pm January 16, 2020 10:53am Start: 05-21-2017 End: 06-17-2017 take 1 capsule by mouth once daily Esomeprazole Magnesium (Nexium) 20 mg capsule,delayed release(DR/EC) Discontinued 20 mg PO daily May 21, 2017 1:00am June 17, 2017 7:05pm potassium chloride 10 meq extended release oral capsule (20 sources) Start: 07-06-2017 End: 09-14-2024 take 1 capsule by mouth once daily at mealtime Potassium Chloride 10 mEq capsule, extended release Active 10 meq PO daily September 14, 2024 11:06am administer with food (meal or snack) 24 hr venlafaxine 37.5 mg extended release oral capsule (20 sources) Serotonin and Norepinephrine Reuptake Inhibitor Start: 08-24-2020 End: 05-13-2021 take 1 capsule by mouth every twenty-four hours at bedtime Venlafaxine 37.5 MG capsule,extended release 24hr Discontinued 37.5 mg PO AT BEDTIME August 24, 2020 9:58am May 13, 2021 9:35am Start: 05-14-2017 End: 09-14-2024 take 1 capsule by mouth once daily Venlafaxine 37.5 mg capsule,extended release 24hr Active 0 .ROUTE .COMPLEX September 14, 2024 11:06am TAKE 1 CAPSULE BY MOUTH DAILY Completed/Discontinued Medications Medication Drug Class(es) Dates Sig (Normalized) Sig (Original) apple cider vinegar 600 mg oral capsule (20 sources) Start: 07-02-2020 End: 07-16-2020 Apple Cider Vinegar 600 mg capsule Discontinued mg PO July 02, 2020 1:00am July 16, 2020 10:45am Start: 07-02-2020 End: 07-16-2020 Apple Cider Vinegar Disconti nued MG PO July 02, 2020 1:00am July 16, 2020 10:45am Start: 06-10-2018 End: 01-20-2019 Apple Cider Vinegar 500 mg t ablet Discontinued mg PO June 10, 2018 1:00am January 20, 2019 2:57pm azithromycin 250 mg oral tablet (14 sources) Macrolide Antimicrobial Start: 08-10-2018 End: 10-19-2018 Azithromycin 250 mg tablet Discontinued 0 PO .COMPLEX August 10, 2018 1:00am October 19, 2018 2:20pm Take two tablets by mouth on day one then one tablet by mouth on days 2-5 baclofen 10 mg oral tablet (14 sources) gamma-Aminobutyric Acid-ergic Agonist Start: 03-06-2023 End: 04-09-2023 take 1 tablet by mouth twice daily as needed for muscle spasms Baclofen 10 mg tablet Discontinued 10 mg PO TWICE A DAY as needed for muscle spasm March 06, 2023 12:01pm April 09, 2023 8:43am benzonatate 100 mg oral capsule (14 sources) Non-narcotic Antitussive Start: 08-10-2018 End: 10-19-2018 take 1 capsule by mouth three times daily as needed for cough Benzonatate (Tessalon Perles) 100 mg capsule Discontinued 100 mg PO THREE TIMES A DAY as needed for cough August 10, 2018 1:00am October 19, 2018 2:21pm biotin 1 mg chewable tablet (20 sources) Start: 06-17-2017 End: 12-10-2017 Biotin 1,000 mcg tablet,chewable Discontinued ug PO June 17, 2017 1:00am December 10, 2017 3:35pm Start: 06-17-2017 End: 12-10-2017 Biotin Discontinued MCG PO J anuary 2017 1:00am December 10, 2017 3:35pm Start: 05-14-2017 End: 05-21-2017 Biotin 1,000 mcg tablet,chew able Discontinued ug PO May 14, 2017 1:00am May 21, 2017 3:07pm Start: 05-14-2017 End: 05-21-2017 Biotin Discontinued MCG PO D ec2016 1:00am May 21, 2017 3:07pm Blood Pressure Test Kit-Medi um (20 sources) Start: 06-19-2017 End: 03-18-2018 Blood Pressure Test Kit-Medi um Discontinued 0 .ROUTE .MEDSUPPLY June 19, 2017 7:56am March 18, 2018 12:45pm As directed for hypertension I10 Start: 06-19-2017 End: 03-18-2018 Blood Pressure Test Kit-Medi um Discontinued 0 .ROUTE .MEDSUPPLY June 19, 2017 8:56am March 18, 2018 1:45pm As directed for hypertension I10 Start: 06-17-2017 End: 06-19-2017 Blood Pressure Test Kit-Medi um Discontinued 0 .ROUTE .MEDSUPPLY June 17, 2017 6:48pm June 19, 2017 8:57am As directed Start: 06-17-2017 End: 06-19-2017 Blood Pressure Test Kit-Medi um Discontinued 0 .ROUTE .MEDSUPPLY June 17, 2017 12:00am June 19, 2017 7:57am As directed Start: 06-17-2017 End: 06-19-2017 Blood Pressure Test Kit-Medi um Discontinued 0 .ROUTE .MEDSUPPLY June 17, 2017 1:00am June 19, 2017 8:57am As directed Blood Pressure Test Kit-Medi um kit (2 sources) Start: 06-19-2017 End: 03-18-2018 Blood Pressure Test Kit-Medi um kit Discontinued 0 .ROUTE .MEDSUPPLY June 19, 2017 8:56am March 18, 2018 1:45pm As directed for hypertension I10 Start: 06-17-2017 End: 06-19-2017 Blood Pressure Test Kit-Medi um kit Discontinued 0 .ROUTE .MEDSUPPLY 1 June 17, 2017 1:00am June 19, 2017 8:57am As directed calcium carbonate 1500 mg oral tablet (14 sources) Start: 05-14-2017 End: 11-21-2019 take 1 tablet by mouth once Calcium Carbonate (Calcium 600) 600 mg calcium (1,500 mg) tablet Discontinued 600 mg PO ONCE May 14, 2017 1:00am November 21, 2019 1:54pm calcium citrate 1500 mg / cholecalciferol 250 unt oral tablet (14 sources) Vitamin D Start: 07-02-2020 End: 07-16-2020 Calcium Citrate-Vitamin D3 (Citracal + D Maximum) 315 mg-6.25 mcg (250 unit) tablet Discontinued 1 {tbl} PO DAILY July 02, 2020 1:00am July 16, 2020 10:45am Compress.Stocking,Knee, Reg,Med (13 sources) Start: 04-14-2019 End: 07-02-2020 Compress.Stocking,Kn ee,Reg,Med Discontinued 0 .ROUTE .MEDSUPPLY 2 April 14, 2019 11:43am July 02, 2020 10:37am Wear daily 20-30 mmhg for venous insufficiency Start: 04-14-2019 End: 07-02-2020 Compress.Stocking,Knee,Reg,M ed Discontinued 0 .ROUTE .MEDSUPPLY 2 April 14, 2019 12:00am July 02, 2020 9:37am Wear daily 20-30 mmhg for venous insufficiency Start: 04-14-2019 End: 07-02-2020 Compress.Stocking,Knee,Reg,M ed Discontinued 0 .ROUTE .MEDSUPPLY 2 April 14, 2019 1:00am July 02, 2020 10:37am Wear daily 20-30 mmhg for venous insufficiency Compress.Stocking,Knee,Reg,M ed misc (1 source) Start: 04-14-2019 End: 07-02-2020 Compress.Stocking,Knee,Reg,M ed misc Discontinued 0 .ROUTE .MEDSUPPLY 2 April 14, 2019 1:00am July 02, 2020 10:37am Wear daily 20-30 mmhg for venous insufficiency cyclobenzaprine hydrochlorid e 10 mg oral tablet (20 sources) Muscle Relaxa nt Start: 03-01-2021 End: 07-09-2022 take 1 tablet by mouth three times daily as needed for muscle spasms Cyclobenzaprine 10 mg tablet Discontinued 10 mg PO THREE TIMES A DAY as needed for muscle spasm July 03, 2021 1:55pm July 09, 2022 10:35am Start: 12-13-2018 End: 01-20-2019 take 1 tablet by mouth three times daily as needed for muscle spasms Cyclobenzaprine 10 mg tablet Discontinued 10 mg PO THREE TIMES A DAY as needed for muscle spasm December 23, 2018 10:52am January 20, 2019 2:58pm only AFTER work hours on work days Start: 12-10-2017 End: 06-10-2018 take 1 tablet by mouth at bedtime as needed Cyclobenzaprine 10 mg tablet Discontinued 10 mg PO AT BEDTIME as needed December 10, 2017 12:00am June 10, 2018 11:32am Start: 05-14-2017 End: 09-09-2017 take 1 tablet by mouth three times daily Cyclobenzaprine 10 mg tablet Discontinued 10 mg PO THREE TIMES A DAY May 14, 2017 1:00am September 09, 2017 5:29pm fluticasone propionate 0.05 mg/actuat metered dose nasal spray (14 sources) Corticosteroid Start: 05-14-2017 End: 04-09-2023 Fluticasone Propionate 50 mcg/actuation spray,suspension Discontinued 2 NMA INTRANASAL NEEDED as needed for Nasal Congestion May 14, 2017 1:00am April 09, 2023 8:44am Start: 05-14-2017 End: 04-09-2023 Fluticasone Propionate Disco ntinued 2 SPRAY INTRANASAL NEEDED May 14, 2017 1:00am April 09, 2023 8:44am gabapentin 400 mg oral capsule (20 sources) Anti-epileptic Agent Start: 10-19-2018 End: 09-29-2019 take 1 capsule by mouth once daily Gabapentin 400 mg capsule Discontinued 400 mg PO daily 90 October 19, 2018 2:31pm September 29, 2019 10:33am Start: 05-14-2017 End: 10-19-2018 take 2 capsules by mouth once daily Gabapentin 100 mg capsule Discontinued 200 mg PO daily 180 April 26, 2018 2:38pm October 19, 2018 2:31pm Start: 05-14-2017 End: 10-19-2018 take 200 mg by mouth once daily Gabapentin Discontinue d 200 MG PO daily 180 April 26, 2018 2:38pm October 19, 2018 2:31pm hydroCHLOROthiazide 25 mg oral tablet (20 sources) Thiazide Diuretic Start: 07-16-2020 End: 09-18-2022 take 1 tablet by mouth once daily in the morning Hydrochlorothiazide 25 mg tablet Discontinued 25 mg PO EVERY MORNING May 02, 2022 3:12pm September 18, 2022 10:05am Start: 04-14-2019 End: 07-02-2020 take 1 tablet by mouth once daily Hydrochlorothiazide 25 mg tablet Discontinued 25 mg PO daily 90 April 13, 2020 3:33pm July 02, 2020 10:37am Start: 06-17-2017 End: 04-14-2019 take 1 tablet by mouth once daily Hydrochlorothiazide 12.5 mg tablet Discontinued 12.5 mg PO daily 60 February 17, 2018 9:20am October 19, 2018 2:38pm ibuprofen 400 mg oral tablet (20 sources) Nonsteroidal Anti-inflammatory Drug Start: 03-06-2023 End: 04-09-2023 take 1 tablet by mouth every eight hours Ibuprofen 400 mg tablet Discontinued 400 mg PO Q8H March 06, 2023 12:00am April 09, 2023 8:44am Start: 12-13-2018 End: 01-20-2019 take 1 tablet by mouth four times daily Ibuprofen 600 mg tablet Discontinued 600 mg PO .QID 40 December 13, 2018 12:00am January 20, 2019 2:58pm w/ food lisinopril 10 mg oral tablet (8 sources) Angiotensin Converting Enzyme Inhibitor Start: 09-18-2022 End: 10-02-2022 take 1 tablet by mouth once daily Lisinopril 10 mg tablet Discontinued 10 mg PO daily September 18, 2022 12:00am October 02, 2022 1:36pm losartan potassium 25 mg oral tablet (14 sources) Angiotensin 2 Receptor Bruna Start: 10-02-2022 End: 06-12-2023 take 1 tablet by mouth once daily Losartan 25 mg tablet Discontinued 25 mg PO DAILY April 07, 2023 11:59am June 12, 2023 11:51am Magnesium (14 sources) Start: 12-10-2017 End: 08-10-2018 take 200 mg by mouth once daily Magnesium Discontinued 200 MG PO daily December 10, 2017 3:37pm August 10, 2018 3:57pm Start: 12-10-2017 End: 08-10-2018 take 1 tablet by mouth once daily Magnesium 200 mg tablet Discontinued 200 mg PO daily December 10, 2017 12:00am August 10, 2018 3:57pm Start: 12-10-2017 End: 08-10-2018 take 200 mg by mouth once daily Magnesium Discontinued 200 MG PO daily December 09, 2017 11:00pm August 10, 2018 2:57pm Start: 12-10-2017 End: 08-10-2018 take 200 mg by mouth once daily Magnesium Discontinued 200 MG PO daily December 10, 2017 12:00am August 10, 2018 3:57pm meloxicam 15 mg oral tablet (20 sources) Nonsteroidal Anti-inflammatory Drug Start: 01-14-2021 End: 03-03-2022 Meloxicam 15 mg tablet Discontinued 15 mg PO DAILY 60 March 01, 2021 1:26pm March 03, 2022 9:20am Take daily consistently for 7 days then daily as needed. 24 hr metFORMIN hydrochloride 500 mg extended release oral tablet (20 sources) Biguanide Start: 07-14-2019 End: 10-14-2019 take 1 tablet by mouth once daily in the evening Metformin 500 mg tablet extended release 24 hr Discontinued 500 mg PO EVERY EVENING August 12, 2019 5:54pm October 14, 2019 10:26am methIMAzole 5 mg oral tablet (20 sources) Thyroid Hormone Synthesis Inhibitor Start: 07-02-2020 End: 07-16-2020 take 1 tablet by mouth once daily Methimazole 5 mg tablet Discontinued 5 mg PO DAILY July 02, 2020 1:00am July 16, 2020 10:46am Start: 05-14-2017 End: 01-13-2022 Methimazole 5 mg tablet Disc ontinued 2.5 mg PO MOWEFR September 16, 2021 1:27pm January 13, 2022 10:13am M Start: 05-14-2017 End: 01-13-2022 Methimazole Discontinued 2.5 MG PO MOWEFR September 16, 2021 1:27pm January 13, 2022 10:13am M methylPREDNISolone 4 mg oral tablet (14 sources) Corticosteroid Start: 12-23-2018 End: 01-20-2019 take 1 tablet by mouth once Methylprednisolone (Medrol (Blu)) 4 mg tablets,dose pack Discontinued 0 PO per package directions December 23, 2018 12:00am January 20, 2019 2:59pm PO PER PKG DIR nitrofurantoin, macrocrystals 25 mg / nitrofurantoin, monohydrate 75 mg oral capsule (8 sources) Nitrofuran Antibacterial Start: 11-28-2022 End: 12-03-2022 take 1 capsule by mouth every twelve hours at mealtime Nitrofurantoin Monohyd/M-Cryst (Macrobid) 100 mg capsule Discontinued 100 mg PO Q12H 10 November 28, 2022 12:00am December 02, 2022 12:00am December 03, 2022 12:03am must administer with a meal/food omeprazole 20 mg delayed release oral tablet (14 sources) Proton Pump Inhibitor Start: 05-14-2017 End: 05-21-2017 take 1 tablet by mouth once Omeprazole Magnesium (Prilosec Otc) 20 mg tablet,delayed release (DR/EC) Discontinued 20 mg PO ONCE May 14, 2017 1:00am May 21, 2017 3:07pm predniSONE 20 mg oral tablet (14 sources) Start: 11-28-2019 End: 12-29-2019 take 2 tablets by mouth once daily Prednisone 20 mg tablet Discontinued 40 mg PO DAILY November 28, 2019 12:00am December 29, 2019 2:28pm Start: 11-28-2019 End: 12-29-2019 take 40 mg by mouth once daily Prednisone Discontinued 40 MG PO DAILY November 28, 2019 12:00am December 29, 2019 2:28pm 100 ml zoledronic acid 0.05 mg/ml injection (20 sources) Bisphosphonate Start: 09-16-2021 End: 03-06-2023 Zoledronic Pjfl-Cbfawxyn-Gqtmn 5 mg/100 mL piggyback Discontinued 0 .ROUTE .COMPLEX 100 September 16, 2021 12:00am March 06, 2023 8:38am 5 mg via IVPB once/year x5 years. dose 3/. Start: 11-29-2020 End: 01-14-2021 Zoledronic Oqul-Nkjzadkq-Tnt er 5 mg/100 mL piggyback Discontinued 1 NMA .Route ONCE 100 November 29, 2020 12:00am January 14, 2021 9:25am Infuse over 20 minutes Start: 12-08-2019 End: 07-02-2020 Zoledronic Kanp-Unefccgv-Ned er 5 mg/100 mL piggyback Discontinued 5 mg .Route ONCE 100 December 08, 2019 12:00am July 02, 2020 10:37am infuse over 20 minutes Problems Active Problems Problem Classification Problem Date Documented Date Episodic/Chronic Abdominal pain (7 sources) Pain in pelvis; Translations: [Pelvic and perineal pain] 09-01-2023 Episodic Comment on above: [place] Allergic reactions (14 sources) Inflammatory dermatosis; Translations: [Dermatitis, unspecified] Episodic Anxiety disorders (20 sources) Mixed anxiety and depressive disorder; Translations: [Anxiety disorder, unspecified] Chronic Conditions associated with dizziness or vertigo (10 sources) Lightheadedness; Translations: [Dizziness and giddiness] 03-01-2021 Episodic Diabetes mellitus without complication (16 sources) Diabetes mellitus; Translations: [Type 2 diabetes mellitus without complications] Onset: 09-14-2024 07-02-2020 Chronic Comment on above: resolved after weigh t loss and diet. diet controlled. Diabetes mellitus without complication (20 sources) Prediabetes; Translations: [Prediabetes] Episodic Esophageal disorders (8 sources) Gastroesophageal reflux disease; Translations: [Gastro-esophageal reflux disease without esophagitis] 06-12-2023 Chronic Essential hypertension (20 sources) Benign essential hypertension; Translations: [Essential (primary) hypertension] Chronic Fluid and electrolyte disorders (1 source) Hypokalemia; Translations: [Hypokalemia] 10-24-2024 Episodic Malaise and fatigue (6 sources) Fatigue; Translations: [Other fatigue] Episodic Mood disorders (14 sources) Depressive disorder; Translations: [Depression] 07-15-2021 Chronic Other bone disease and musculoskeletal deformities (7 sources) X-ray evidence of poor mineralization; Translations: [Other specified disorders of bone density and structure, unspecified site] 11-21-2019 Episodic Other bone disease and musculoskeletal deformities (8 sources) Other specified disorders of bone density and structure, unspecified site; Translations: [Disorder of bone and cartilage, unspecified] Episodic Other bone disease and musculoskeletal deformities (7 sources) Osteopenia; Translations: [Other specified disorders of bone density and structure, unspecified site] 11-21-2019 Episodic Other circulatory disease (2 sources) Spider nevus; Translations: [Nevus, non-neoplastic] 10-27-2024 Episodic Other connective tissue disease (1 source) Myalgia, unspecified site; Translations: [Myalgia and myositis, unspecified] 04-15-2023 Episodic Other connective tissue disease (2 sources) Pain in lower limb; Translations: [Pain in leg, unspecified] 10-27-2024 Episodic Other connective tissue disease (1 source) Pain of right forearm; Translations: [Pain in right forearm] 05-04-2024 Episodic Other diseases of veins and lymphatics (1 source) Venous insufficiency (chronic) (peripheral); Translations: [Venous insufficiency (chronic) (peripheral)] Onset: 11-10-2024 Episodic Other endocrine disorders (14 sources) Primary hyperparathyroidism; Translations: [Primary hyperparathyroidism] 11-21-2019 Chronic Other endocrine disorders (5 sources) Primary hyperparathyroidism; Translations: [Primary hyperparathyroidism] Chronic Other lower respiratory disease (14 sources) Cough; Translations: [Cough] 05-06-2018 Episodic Other non-traumatic joint disorders (14 sources) Pain in elbow; Translations: [Pain in right elbow] 01-14-2021 Episodic Other non-traumatic joint disorders (1 source) Shoulder pain; Translations: [Pain in right shoulder] 03-18-2024 Episodic Other nutritional; endocrine; and metabolic disorders (14 sources) Hypercalcemia; Translations: [Hypercalcemia] 09-29-2019 Chronic Pulmonary heart disease (14 sources) Pulmonary embolism; Translations: [Other pulmonary embolism without acute cor pulmonale] 05-06-2018 Episodic Residual codes; unclassified (14 sources) Obstructive sleep apnea syndrome; Translations: [Obstructive sleep apnea (adult) (pediatric)] 01-16-2020 Chronic Residual codes; unclassified (10 sources) Postmenopausal state; Translations: [Asymptomatic menopausal state] 03-03-2022 Episodic Spondylosis; intervertebral disc disorders; other back problems (20 sources) Backache; Translations: [Dorsalgia, unspecified] 03-01-2021 Episodic Sprains and strains (14 sources) Lower back injury; Translations: [Strain of muscle, fascia and tendon of lower back, initial encounter] 12-13-2018 Episodic Substance-related disorders (14 sources) Tobacco dependence in remission; Translations: [Nicotine dependence, unspecified, in remission] 05-06-2018 Chronic Thyroid disorders (20 sources) Hyperthyroidism; Translations: [Thyrotoxicosis, unspecified without thyrotoxic crisis or storm] Onset: 04-14-2024 Chronic Comment on above: Patient is 68-year-o ld female, euthyroid from an endocrine standpoint, who makes follow-up for history of bilateral thyroid nodularity. She describes some symptoms that could be construed as positive for compressive symptomology this visit. However, it is noted that patient's right thyroid lobe dimensions (the lobe in which radiology describes the changes in patient's thyroid nodularity) is within 1 mm of its size described a year ago. On the contrary, patient's left thyroid lobe is significantly enlarged but the nodularity there and is stable. Concerning patient's right-sided thyroid nodularity patient's nodule 1 and nodule 4 correspond to the nodules that were biopsied at her visit a year ago and given [place] 2 designations. Is also noted that both of these nodules are smaller in size this year. Nodule 2 and nodule 3 that were described this year are both larger in size than they were a year ago and meet criteria for FNA biopsy. I do note that nodule 2 was described as a 2.4 x 1.41 x 1.47 cm) thyroid nodule and the use of only 2 significant figures for the first dimension was conspicuous so upon my review of patient's original imaging this nodule actually measured '2.14' centimeters and there appears to been a square shear operator error. By my own ultrasound exam this dimension was 2.2 cm. Additionally, I found patient's nodule 4 to be just slightly smaller than what was described on patient's index imaging but recommended that we proceed with biopsy based on radiology's original interpretation given that the 1.46 cm dimension would round up and meet ACR criteria. Patient was receptive of these recommendations and underwent FNA biopsy without complication today. As per radiology's recommendations, will plan to keep the left sided thyroid nodule that represents a subcentimeter TI-RADS 5 nodule under surveillance unless patient's right-sided nodularity returns more clinically significant. In that case patient was advised she may require a separate biopsy for this contralateral nodule as a means of directing operative planning. Urinary tract infections (2 sources) Urinary tract infection, site not specified; Translations: [Urinary tract infection, site not specified] 11-28-2022 Episodic Past or Other Problems Problem Classification Problem Date Documented Da te Episodic/Chronic Other non-traumatic joint disorders (1 source) Pain in right shoulder; Translations: [Pain in right shoulder] Onset: 04-12-2024 Episodic Other screening for suspected conditions (not mental disorders or infectious disease) (9 sources) Cervical smear result; Translations: [Unsatisfactory cytologic smear of cervix] Onset: 08-04-2024 Episodic Unclassified (12 sources) history of A/P repair 12-27-2021 Results Test Name Value Interpretation Reference Range Facility Venous Duplex US - Deshawn [facility] 11-10-2024 Venous Duplex US - Deshawn [facility] Services [address] [place] [address] Venous Duplex US - Deshawn [facility] 11/10/24 0849 MR#: [id number] Acct: [id number] Name: NELSON BONILLA Rep #: [id number] : 1955 69 From: Cristian Worthington MD Attending Dr: ANGIE Verde Status: REG CLI Ordering Dr: Brandie Youngblood Date: 11/10/24 Location: CVS Sex: F C Admitted: Reason For Study Reason For Study: Pain RIGHT LEFT CFV is compressible, spontaneous, phasic, competent CFV is compressible, spontaneous, phasic, competent, and demonstrates normal augmentation. and demonstrates normal augmentation. FV is compressible, spontaneous, phasic, competent FV is compressible, spontaneous, phasic, competent and demonstrates normal augmentation. and demonstrates normal augmentation. POP V is compressible, spontaneous, phasic, competent POP V is compressible, spontaneous, phasic, competent and demonstrates normal augmentation. and demonstrates normal augmentation. T/P Trunk is compressible. T/P Trunk is compressible. PTV is compressible. PTV is compressible. RT PerV is compressible. LT PerV is compressible. SFJ is INCOMPETENT and measures 0.71 cm. SFJ is INCOMPETENT and measures 0.75 cm. GSV proximal thigh measures 0.34x0.38 cm. GSV proximal thigh measures 0.32x0.40 cm. GSV at knee measures 0.31x0.36 cm. GSV at knee measures 0.33x0.35 cm. GSV is competent throughout. GSV above knee is INCOMPETENT for greater than 0.5 SSV mid calf is competent and measures 0.25x0.30 cm. seconds. Procedure GSV below knee is competent. This is a venous duplex using B-mode, color flow and SSV mid calf is INCOMPETENT for greater than 0.5 spectral Doppler. seconds and measures 0.25x0.30 cm. Exam performed in department. Incompetent vault clerk noted in the posterior mid The exam was diagnostic. calf 15 cm above medial malleolus. Patient was scanned in reverse Trendelenburg position during reflux assessment. VL/Venous Duplex US - Deshawn Extrem Interpretation Summary Deep veins of the bilateral lower extremities are patent and compressible segmentally. There is no evidence of bilateral lower extremity deep vein thrombosis. The bilateral great saphenous veins appear patent and compressible segmentally. Positive for reflux in the right saphenofemoral junction. Positive for reflux in the left saphenofemoral junction, great saphenous vein above the knee, small saphenous vein, and vault clerk in the calf. Ordering Physician: Brandie Youngblood Referring Physician: Dior Sanchez Performed By: Candie, Kavya, RVT 11/10/24 1607 Date Cristian Worthington MD CC: ANGIE Verde; Dr. Dior Sanchez MD Date Dictated: 11/10/24 0849 Date Transcribed: 11/10/241606 Medical Delivery Driver: Signed Normal [facility] Venous duplex ultrasound rep ortOrdered By: Cristian Worthington on 11-10-2024 US Vein [facility] Cardi[facility] Services [address] [place] [address] Venous Duplex US - Deshawn Extrem 11/10/24848 MR#: [id number] Acct: [id number] Name: NELSON BONILLA Rep #:[id number] : 1955 69 From: Cristian Mao Attending Dr: ANGIE Verde Stat us: REG CLI Ordering Dr: Brandie Youngblood Date: Location: CVS Sex: F C Admitted: Reason For Study Reason For Study: Pain RIGHT LEFT CFV is compressible, spontaneous, phasic, competent CFV is compressible, spontaneous, phasic, competent, and demonstrates normal augmentation. and demonstrates normal augmentation. FV is compressible, spontaneous, phasic, competent FV is compressible, spontaneous, phasic, competent and demonstrates normal augmentation. and demonstrates normal augmentation. POP V is compressible, spontaneous, phasic, competent POP V is compressible, spontaneous, phasic, competent and demonstrates normal augmentation. and demonstrates normal augmentation. T/P Trunk is compressible. T/P Trunk is compressible. PTV is compressible. PTV is compressible. RT PerV is compressible. LT PerV is compressible. SFJ is INCOMPETENT and measures 0.71 cm. SFJ is INCOMPETENT and measures 0.75 cm. GSV proximal thigh measures 0.34x0.38 cm. GSV proximal thigh measures 0.32x0.40 cm. GSV at knee measures 0.31x0.36 cm. GSV at knee measures 0.33x0.35 cm. GSV is competent throughout. GSV above kneeis INCOMPETENT for greater than 0.5 SSV mid calf is competent and measures 0.25x0.30 cm. seconds. Procedure GSV below kneeis competent. This is a venous duplex using B-mode, color flow and SSV mid calf is INCOMPETENT for greater than 0.5 spectral Doppler. seconds and measures 0.25x0.30 cm. Exam performed in department. Incompetent vault clerk noted in the posterior mid The exam was diagnostic. calf 15 cm above medial malleolus. Patient was scanned in reverse Trendelenburg position during reflux assessment. VL/Venous Duplex US - Deshawn Extrem Interpretation Summary Deep veins of the bilateral lower extremities are patent and compressible segmentally. There is no evidence of bilateral lower extremity deep vein thrombosis. The bilateral great saphenous veins appearpatent and compressible segmentally. Positive for reflux in the right saphenofemoral junction. Positive for reflux in the left saphenofemoral junction, great saphenous vein above the knee, small saphenous vein, and vault clerk in the calf. Ordering Physician: Brandie Youngblood Referring Physician: Dior Sanchez Performed By: Kavya Schreiber, SREEDHAR 11/10/24 1607 Date _ Cristian Worthington MD CC: ANGIE Verde; Dr. Dior Sanchez MD ~ Date Dictated: 11/10/24 0849 Date Transcribed: 11/10/24 1607 Medical Delivery Driver: Signed [facility] Work Phone: [email or web address] 10-27-2024 MR/BMS.BVS [facility] Vascular Surgery [address] [place], [place] [address] OFFICE VISIT Date of Service: 10/27/24 MR#: [id number] Acct: [id number] Name: NELSON BONILLA Rep #: [id number] : 1955 Provider: ANGIE Verde Age/Sex: 69/F Location: [facility] Status: Signed Intake Vital Signs 09/14/24 10:30 10/27/24 09:02 Height 5 ft 3 in Weight: 137 lb 139 lb BMI 24.3 BP 120/84 H 128/91 H Blood Pressure Location Lt brachial Lt brachial Position Sitting Sitting Respiration 14 16 Pulse 74 72 Pulse Source Monitor Monitor Temp 96.8 F L 98.6 F Temp Source Temporal Temporal Pulse Oximetry (%) 99 98 Oxygen Delivery Method room air room air Intake Visit Reasons: Varicose veins Is patient in pain?: No Allergies amoxicillin Allergy (Mild, Verified 10/27/24 09:02) Hives chlorpheniramine (From Aller-Chlor Decongestant) Allergy (Verified 10/27/24 09:02) palpitations pseudoephedrine (From Aller-Chlor Decongestant) Allergy (Verified 10/27/24 09:02) palpitations Medications ???Medication ???Instructions ???Recorded ???Confirmed ???Type cholecalciferol (vitamin D3) 25 25 mcg PO MOWEFR 07/16/20 10/27/24 History mcg (1,000 unit) capsule esomeprazole magnesium 20 mg 20 mg PO DAILY #90 caps 09/14/24 0 10/27/24 Rx capsule,delayed release potassium chloride 10 mEq 10 meq PO QDAY #90 caps 09/14/24 0 10/27/24 Rx capsule,extended release venlafaxine 37.5 mg See Rx Instructions .Route 5 10/27/24 Rx capsule,extended release 24 hr .COMPLEX #90 CAPSULES Is last menstrual period known: No Post menopausal: Yes Patient : No Have you fallen in the past year?: No PFSH Medical History (Updated 10/27/24 @ 13:46 by ANGIE Verde) Hypokalemia Right forearm pain Bilateral shoulder pain Chronic back pain Post-menopausal Dermatitis Ganglion cyst Anxiety and depression Borderline type 2 diabetes mellitus Elbow pain, right Seizure disorder Pneumonia Bronchitis Upper respiratory infection, acute Elevated blood pressure reading Hyperthyroidism Snoring Breathing-related sleep disorder Low back pain Pain in right shoulder GERD (gastroesophageal reflux disease) Pulmonary embolism Depression Benign essential HTN Surgical History history of A/P repair H/O tubal ligation Family History Mother Diabetes Myocardial infarction CVA (cerebral vascular accident) Thyroid disorder Cancer skin Kidney disease Father Myocardial infarction Heart disease Sister Lupus Thyroid disorder Social History current occupational status: retired Smoking Status: Former smoker quit date: 06/08/98 pack-years: 30 second hand exposure: No alcohol intake: current alcohol intake frequency: holidays/special occasions only Alcohol type: beer substance use type: does not use caffeine: Yes what type of physical activity do you participate in: walking frequency: 1-2 times per week seatbelt use: always do you feel safe at home: Yes additional social history: [employer] HPI HPI HPI: NELSON BONILLA, is a 69 F who presents to the office today for evaluation of 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 She reports she has had these for many years, they are bothersome cosmetically and she also wonders if they may be contributing to her bilateral leg aching. She reports that every night her lower legs ache and she frequently has to shift positions to get comfortable. She does not have pain during the day or with activity. She is not diagnosed with restless leg syndrome. She does also have chronic low back pain, she does typically have back pain at night as well. She does notice some mild ankle edema at the end of the day sometimes. She does not have any history of DVT/SVT or prior venous interventions. She does not currently wear compression stockings. ROS General General: No weight change, appetite, fatigue, colon cancer, breast cancer or weakness HEENT HEENT: No difficulty swallowing, eye injury, eye surgery, swollen glands or hoarseness Endo Endocrine: Yes thyroid disease; No diabetes mellitus, thyroid cancer, Hair loss, heat intolerance or cold intolerance Skin Skin: No rash or changing moles Musc Musculoskeletal: Yes back problems; No arthritis, rheumatoid arthritis, gout or joint pain Cardio Cardiovascular: No murmur, pacemaker, heart disease, atrial fibrillation, high blood pressure, heart attack, heart stent, palpitations, shortness of breath with exertion or chest pain Psych Psychiatric: Yes depression; No anxiety or hearing voices Resp Respira (more content not included)... Normal [facility] Office Vis iton 09-14-2024 Internal Medicine Office Visit [facility] [address] [place] [address] OFFICE VISIT Date of Service: 09/14/24 MR#: [id number] Acct: [id number] Name: NELSON BONILLA Rep #: [id number] : 1955 Provider: Dr. Dior an MD Age/Sex: 69/F Location: [facility] Status: Signed Intake Vital Signs 03/18/24 09:26 07/19/24 09:27 09/14/24 10:30 Height 5 ft 3 in 5 ft 3 in 5 ft 3 in Weight: 137 lb BMI 24.3 BP 120/84 H Blood Pressure Location Lt brachial Position Sitting Respiration 14 Pulse 74 Pulse Source Monitor Temp 96.8 F L Temp Source Temporal Pulse Oximetry (%) 99 Oxygen Delivery Method room air Intake Visit Reasons: 6 M Chief Complaint: FU Chronic Conditions Plow Shaker Required: No Is patient in pain?: No Allergies amoxicillin Allergy (Mild, Verified 09/14/24 10:15) Hives chlorpheniramine (From Aller-Chlor Decongestant) Allergy (Verified 09/14/24 10:15) palpitations pseudoephedrine (From Aller-Chlor Decongestant) Allergy (Verified 09/14/24 10:15) palpitations Medications ???Medication ???Instructions ???Recorded ???Confirmed ???Type cholecalciferol (vitamin D3) 25 25 mcg PO MOWEFR 07/16/20 09/14/24 History mcg (1,000 unit) capsule esomeprazole magnesium 20 mg 20 mg PO DAILY 08/24/20 09/14/24 H istory capsule,delayed release potassium chloride 10 mEq 10 meq PO QDAY #90 caps 03/15/24 0 09/14/24 Rx capsule,extended release venlafaxine 37.5 mg See Rx Instructions .Route 5 09/14/24 Rx capsule,extended release 24 hr .COMPLEX #90 CAPSULES Have you fallen in the past year?: No PFSH Medical History Right forearm pain Bilateral shoulder pain Chronic back pain Post-menopausal Dermatitis Ganglion cyst Anxiety and depression Borderline type 2 diabetes mellitus Elbow pain, right Seizure disorder Pneumonia Bronchitis Upper respiratory infection, acute Elevated blood pressure reading Hyperthyroidism Snoring Breathing-related sleep disorder Low back pain Pain in right shoulder GERD (gastroesophageal reflux disease) Pulmonary embolism Depression Benign essential HTN Surgical History history of A/P repair H/O tubal ligation Family History Mother Diabetes Myocardial infarction CVA (cerebral vascular accident) Thyroid disorder Cancer skin Kidney disease Father Myocardial infarction Heart disease Sister Lupus Thyroid disorder Social History current occupational status: retired Smoking Status: Former smoker quit date: 06/08/98 pack-years: 30 second hand exposure: No alcohol intake: current alcohol intake frequency: holidays/special occasions only Alcohol type: beer substance use type: does not use caffeine: Yes what type of physical activity do you participate in: walking frequency: 1-2 times per week seatbelt use: always do you feel safe at home: Yes additional social history: [employer] Questionnaire PQH-9 BMS Over the last 2 weeks, how often have you been bothered by any of the following problems? 1. Little interest or pleasure in doing things: not at all 2. Feeling down, depressed, or hopeless: not at all 3. Trouble falling or staying asleep, or sleeping too much: several days 4. Feeling tired or having little energy: several days 5. Poor appetite or overeating: not at all 6. Feeling bad about yourself - or that you are a failure or have let yourself and your family down: not at all 7. Trouble concentrating on things, such as reading the newspaper or watching television: not at all 8. Moving or speaking so slowly that other people could have noticed? - Or the opposite - being so fidgety or restless that you have been moving around a lot more than usual: not at all 9. Thoughts that you would be better off or of hurting yourself in some way: not at all Total score: 2 If you checked off any problems, how difficult have these problems made it for you to do your work, take care of things at home, or get along with other people?: not difficult at all Source: Developed by Drs. Neto Enriquez, Leslie Tyson, Axel Patterson and colleagues, with an educational roderick from [employer]. ROSELIA-7 BMS ROSELIA-7 Feeling nervous, anxious, or on edge: 0 = Not at all Not being able to stop or control worryin = Not at all Worrying too much about different things: 0 = Not at all Trouble relaxin = Not at all Being so restless that it is hard to sit still: 0 = Not at all Becoming easily annoyed or irritable: 0 = Not at all Feeling afraid as if something awful might happen: 0 = Not at all Total ROSELIA-7 sco (more content not included)... Normal [facility] - Hematology and Cell countsOrdered By: Dior Sanchez on 09-14-2024 HbA1c (Bld) [Mass fraction] 5.8 % 4.2-6.3 [facility] [employer] Clerk Office Visit Reporton 07-19-2024 [employer] Clerk Office Visit Report [facility] [address], [address] [place] [address] OFFICE VISIT Date of Service: 07/19/24 MR#: [id number] Acct: [id number] Name: NELSON BONILLA Rep #: [id number] : 1955 Provider: JER acosta Age/Sex: 69/F Location: 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 Complaint: Annual Plow Shaker Required: No Is patient in pain?: No Allergies amoxicillin Allergy (Mild, Verified 07/19/24 09:30) Hives chlorpheniramine (From Aller-Chlor Decongestant) Allergy (Verified 07/19/24 09:30) palpitations pseudoephedrine (From Aller-Chlor Decongestant) Allergy (Verified 07/19/24 09:30) palpitations Medications ???Medication ???Instructions ???Recorded ???Confirmed ???Type cholecalciferol (vitamin D3) 25 25 mcg PO MOWEFR 07/16/20 07/19/24 History mcg (1,000 unit) capsule esomeprazole magnesium 20 mg 20 mg PO DAILY 08/24/20 07/19/24 H istory capsule,delayed release potassium chloride 10 mEq 10 meq PO QDAY #90 caps 03/15/24 0 07/19/24 Rx capsule,extended release venlafaxine 37.5 mg See Rx Instructions .Route 5 07/19/24 Rx capsule,extended release 24 hr .COMPLEX #90 CAPSULES Is last menstrual period known: No Post menopausal: Yes Patient : No : No [facility] Medical History (Updated 07/19/24 @ 09:41 by Mariella Vega NP, YIELD CLERK-C) Right forearm pain Bilateral shoulder pain Chronic back pain Post-menopausal Dermatitis Ganglion cyst Anxiety and depression Borderline type 2 diabetes mellitus Elbow pain, right Seizure disorder Pneumonia Bronchitis Upper respiratory infection, acute Elevated blood pressure reading Hyperthyroidism Snoring Breathing-related sleep disorder Low back pain Pain in right shoulder GERD (gastroesophageal reflux disease) Pulmonary embolism Depression Benign essential HTN Surgical History history of A/P repair H/O tubal ligation Family History Mother Diabetes Myocardial infarction CVA (cerebral vascular accident) Thyroid disorder Cancer skin Kidney disease Father Myocardial infarction Heart disease Sister Lupus Thyroid disorder Social History current occupational status: retired Smoking Status: Former smoker quit date: 06/08/98 pack-years: 30 second hand exposure: No alcohol intake: current alcohol intake frequency: holidays/special occasions only Alcohol type: beer substance use type: does not use caffeine: Yes what type of physical activity do you participate in: walking frequency: 1-2 times per week seatbelt use: always do you feel safe at home: Yes additional social history: Ari- Frank Borges History 1 Elective abortions Hx Para 1 Spontaneous abortions Hx # Term Pregnancies Ectopic pregnancies Hx # Pregnancies Multiple births # of living children Past Pregnancies Del. Date Name GA/Weeks Outcome Route Bth Weight Gen Labor Lgth Anesthesia Del Locatn Provider FOB Unknown 1975 Crystal live - full term [facility]- [facility] own Delivery Date: Last Updated by: Gina Sorensen MD estranged- but communicates with [facility] HPI Encounter for routine gynecological examination Details: NELSON BONILLA is a 69 year old who presents for annual exam. Denies concerns. Last PAP: NA History of abnormal PAP: no Last mammogram: today History of abnormal mammogram: no Colon cancer screenin; due in 2025 Other preventative health care screenings: Laura Female Reproductive History Questions: metorrhagia: No and sexually active: No ROS Const Constitutional: Denies fatigue, weight gain or weight loss Cardio Card: Denies chest pain Resp Resp: Denies cough or dyspnea on exertion GI GI: Denies abdominal pain, bloating, change in stool character, constipation or vomiting : Reports as per HPI; Denies difficulty voiding, pelvic pain, urinary frequency, urinary incontinence, urinary urgency, vaginal discharge or vaginal pruritus Exam Const General: cooperative, healthy appearing, no acute distress and well developed Orientation: alert, oriented to person and oriented to place HENME Head: normal to inspection Neck Neck: normal visual inspection Thyroid: thyroid normal Lymphatic: no lymphadenopathy noted Chest Breast inspection: normal inspection of the breasts and normal inspection of the axillae Breast pal (more content not included)... Normal [facility] SCRN MAMM (CAD)W/ARNULFO Stern n 07-19-2024 SCRN MAM[facility] Imaging Services [address] [place] [address] SCRN MAMM (CAD)W/ARNULFO JAMES MR#: [id number] Acct: [id number] Name: NELSON BONILLA Rep #: [id number] : 1955 F 69 From: Nick mueller MD PCP: Dr. Dior Sanchez MD Status: REG CLI Study: SCRN MAMM (CAD)W/ARNULFO BILAT Date of Exam: 07/09 07/02 Exam# [id number] Ordering Dr: Mariella Vega NP YIELD CLERK -C PROCEDURE: SCRN MAMM (CAD)W/ARNULFO BILAT REASON FOR EXAM: F, Age 69 y/o, sister with breast cancer. TECHNIQUE: Bilateral screening digital breast tomosynthesis with 2D and 3D images. Computer aided detection. COMPARISON: Prior exam(s) dating back to July 04, 2022.. FINDINGS: The breasts are extremely dense which lowers the sensitivity of mammography. Stable fat containing axillary lymph nodes. No suspicious masses, areas of developing architectural distortion, or suspicious calcifications. BI/SCRN MAMM (CAD)W/ARNULFO BILAT IMPRESSION: BI-RADS 1: NEGATIVE. RECOMMEND ANNUAL MAMMOGRAPHIC SCREENING. Follow-up code: Routine Follow-up The patient will be notified of the results by letter. Reading Location: [id number] CC: YIELD CLERK-C Mariella Vega; Dr. Dior Sanchez MD Medical Delivery Driver: Signed Normal [facility] Office Vis itotejas 05-04-2024 Internal Medicine Office Visit [facility] [address] [place] [address] [address] [place] [id number] OFFICE VISIT Date of Service: 05/04/24 MR#: [id number] Acct: [id number] Name: NELSON BONILLA Rep #: [id number] : 1955 Provider: Dr. Dior an MD Age/Sex: 68/F Location: 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 Chief Complaint: wellness Plow Shaker Required: No Accompanied by: Self Is patient in pain?: Yes (left wrist ) Pain scale (1-10): 3 Allergies amoxicillin Allergy (Mild, Verified 05/04/24 09:05) Hives chlorpheniramine (From Aller-Chlor Decongestant) Allergy (Verified 05/04/24 09:05) palpitations pseudoephedrine (From Aller-Chlor Decongestant) Allergy (Verified 05/04/24 09:05) palpitations Medications ???Medication ???Instructions ???Recorded ???Confirmed ???Type cholecalciferol (vitamin D3) 25 25 mcg PO MOWEFR 07/16/20 05/04/24 History mcg (1,000 unit) capsule esomeprazole magnesium 20 mg 20 mg PO DAILY 08/24/20 05/04/24 History capsule,delayed release venlafaxine 37.5 mg See Rx Instructions .Route 05/25/23 05/04/24 Rx capsule,extended release 24 hr .COMPLEX #90 CAPSULES potassium chloride 10 mEq 10 meq PO QDAY #90 caps 03/15/24 05/04/24 Rx capsule,extended release Have you fallen in the past year?: No PFSH Medical History (Updated 05/04/24 @ 13:[address] Dior Sanchez MD) Right forearm pain Health care maintenance Bilateral shoulder pain Chronic back pain Post-menopausal Dermatitis Ganglion cyst Anxiety and depression Borderline type 2 diabetes mellitus Elbow pain, right Seizure disorder Pneumonia Bronchitis Upper respiratory infection, acute Elevated blood pressure reading Hyperthyroidism Snoring Breathing-related sleep disorder Low back pain Pain in right shoulder GERD (gastroesophageal reflux disease) Pulmonary embolism Depression Benign essential HTN Surgical History history of A/P repair H/O tubal ligation Family History Mother Diabetes Myocardial infarction CVA (cerebral vascular accident) Thyroid disorder Cancer skin Kidney disease Father Myocardial infarction Heart disease Sister Lupus Thyroid disorder Social History current occupational status: retired Smoking Status: Former smoker quit date: 01/01/99 pack-years: 30 second hand exposure: No alcohol intake: current alcohol intake frequency: holidays/special occasions only Alcohol type: beer substance use type: does not use caffeine: Yes what type of physical activity do you participate in: walking frequency: 1-2 times per week seatbelt use: always do you feel safe at home: Yes additional social history: [employer]- [employer] HPI HPI Chief Complaint: wellness Details: NELSON BONILLA, is a 68 F who presents to the office today to discuss recent labs done by her insurance and wellness. She also has some concerns. She recently had an A1c done at home which came back at 5.9. History of borderline diabetes here just over a month ago was at 5.6. Currently not on any medication. Screening with last colonoscopy in 2020. Sooner due to age. Had a DEXA scan about 2 years ago which was normal. No recent fracture. No tobacco or alcohol abuse. Follows up with dermatology and had a visit less than a year ago. Vaccines are up-to-date. She reports right extremity pain. Intermittent. Finds difficulty with opening jars sometimes. Had reported bilateral shoulder pain at her last visit however she states that this is better. No significant concerns in that regard. Had imaging done. ROS Const Constitutional: No body ache, chills, excessive sweating, fatigue, fever(s), frequent falls, headache(s), snoring, weakness or change in appetite Eyes Eyes: No blurry vision, change in vision, floaters, visual disturbances, eye pain or Light sensitivity ENT ENT: No abnormal hearing, ear or mastoid pain, tinnitus, balance problems, nosebleed/epistaxis, nasal congestion, headache(s), neck pain or sore throat Resp Respiratory: No cough, excessive phlegm production, pain on inspiration, shortness of breath, snoring or wheezing Cardio Cardiology: No chest pain at rest, chest pain with exertion, excessive sweating, dyspnea on exertion, lightheadedness, orthopnea or palpitations Gastro GI: No abdominal chiqui (more content not included)... Normal [facility] Special Stain Group IIon Special Stain Group II --- Patient Age/Sex Location Account Attending Physician NELSON BONILLA 68/F LABSPEC [id number] Dr. Mika Mejia MD Specimen: [id number] Received: 03/25/24 Status: GAGE Holcomb Num: [id number] Spec Type: Fluid Subm Dr: Dr. Mika Mejia MD HEADER OPERATION: Fine needle aspiration of thyroid nodule PRE-OP DIAGNOSIS: Thyroid nodule TISSUE SUBMITTED: A- Right mid thyroid nodule fluid, B- Right mid thyroid nodule slides, C- Right lower thyroid nodule fluid, D- Right lower thyroid nodule slides DIAGNOSIS CYTOLOGY A. Fine needle aspiration, right mid thyroid nodule (cytospins and cellblock): Negative for malignant cells. See comment. B. Fine needle aspiration, right mid thyroid nodule (smears): Adequate for evaluation. Consistent with benign follicular nodule (Ringwood Category II). See comment. C. Fine needle aspiration, right lower thyroid nodule (cytospins and cellblock): Negative for malignant cells. See comment. D. Fine needle aspiration, right lower thyroid nodule (smears): Consistent with benign follicular nodule (Ringwood Category II). See comment. 03/28/2024 COMMENT A. Rare benign appearing follicular cells are present. B. The Ringwood System for thyroid diagnostic categorization was used in the evaluation of this case.C. The specimen is virtually acellular. D. The Ringwood System for thyroid diagnostic categorization was used in the evaluation of this case. Case has been reviewed in consultation with Dr. Palacio who concurs with the above diagnosis. IDC:SJ Clinical correlation is suggested. CYTOLOGY STUDY Slides are reviewed. Patient Age/Sex Location Account Attending Physician NELSON BONILLA 68/F LABSPEC [id number] Dr. Mika Mejia MD CYTOLOGY GROSS A. Received is 30 ml of red-cloudy fluid labeled with the patient's name and and designated per the requisition as Right mid thyroid nodule. Submitted for cytology preparation including cell block. B. Received are 4 smears labeled with the patient's name and designated per the requisition as Right mid thyroid nodule. Submitted for staining. C. Received is 30 ml of red-cloudy fluid labeled with the patient's name and and designated per the requisition as Right lower thyroid nodule. Submitted for cytology preparation including cell block. D. Received are 4 smears labeled with the patient's name and designated per the requisition as Right lower thyroid nodule. Submitted for staining. Mr 03/25/2024 TC:5 CPT: 94641i8,91513m4 Signed (signature on file) Dr. Phani Chapman DO 03/28/24 1410 Normal [facility] Comment on above: Performed By: #### P SSII #### [facility] [address] [place] [address] [place], [address] Surgery Visit Reporton 03-25 Surgery Visit Report [facility] [address] [place] [address] OFFICE VISIT Date of Service: 03/25/24 MR#: [id number] Acct: [id number] Name: NELSON BONILLA Rep #: [id number] : 1955 Provider: Dr. Mika acosta MD Age/Sex: 68/F Location: [facility] Status: Signed Intake Vital Signs 09/16/23 09:21 03/18/24 09:26 Height 5 ft 3 in 5 ft 3 in Weight: 139 lb 4 oz BMI 24.6 BP 120/74 Blood Pressure Location Lt brachial Position Sitting Respiration 16 Pulse 84 Pulse Source Monitor Temp 98.7 F Temp Source Temporal Pulse Oximetry (%) 98 Oxygen Delivery Method room air Intake Visit Reasons: RECALL LETTER- 1 YR THYROID CHECK Chief Complaint: recall letter- 1 yr thyroid check Is patient in pain?: No Allergies amoxicillin Allergy (Mild, Verified 03/25/24 08:55) Hives chlorpheniramine (From Aller-Chlor Decongestant) Allergy (Verified 03/25/24 08:55) palpitations pseudoephedrine (From Aller-Chlor Decongestant) Allergy (Verified 03/25/24 08:55) palpitations Medications ???Medication ???Instructions ???Recorded ???Confirmed ???Type cholecalciferol (vitamin D3) 25 25 mcg PO MOWEFR 07/16/20 03/25/24 History mcg (1,000 unit) capsule esomeprazole magnesium 20 mg 20 mg PO DAILY 08/24/20 03/25/24 History capsule,delayed release venlafaxine 37.5 mg See Rx Instructions .Route 05/25/23 03/25/24 Rx capsule,extended release 24 hr .COMPLEX #90 CAPSULES potassium chloride 10 mEq 10 meq PO QDAY #90 caps 03/15/24 03/25/24 Rx capsule,extended release Have you fallen in the past year?: No PFSH Medical History Bilateral shoulder pain Chronic back pain Post-menopausal Dermatitis Ganglion cyst Anxiety and depression Borderline type 2 diabetes mellitus Elbow pain, right Seizure disorder Pneumonia Bronchitis Upper respiratory infection, acute Elevated blood pressure reading Hyperthyroidism Snoring Breathing-related sleep disorder Low back pain Pain in right shoulder GERD (gastroesophageal reflux disease) Pulmonary embolism Depression Benign essential HTN Surgical History history of A/P repair H/O tubal ligation Family History Mother Diabetes Myocardial infarction CVA (cerebral vascular accident) Thyroid disorder Cancer skin Kidney disease Father Myocardial infarction Heart disease Sister Lupus Thyroid disorder Social History current occupational status: retired Smoking Status: Former smoker quit date: 06/08/98 pack-years: 30 second hand exposure: No alcohol intake: current alcohol intake frequency: holidays/special occasions only Alcohol type: beer substance use type: does not use caffeine: Yes what type of physical activity do you participate in: walking frequency: 1-2 times per week seatbelt use: always do you feel safe at home: Yes additional social history: [employer] HPI HPI HPI: Patient is a 68-year-old female who is established with id for history of bilateral thyroid nodularity. Her last visit was 04/10/2023 at which time she underwent biopsy of 2 right-sided thyroid nodules that both returned Ringwood 2 by cytopathology. She presents today and provides an interval history that she has a tickly feeling in her neck which has translated into some coughing. She denies any relationship to time of day. She also notes that this is not a constant and that it comes and goes. She is unable to give a duration of this symptom and simply settles on it has been going on for a while now. Additionally she notes some hoarseness but does confirm this is only present in the mornings. Negatively, Mrs. Bonilla notes that her snoring has been somewhat better of late. Below is recapitulated from patient's consultation visit with biopsy for ease of review: Patient is a 67-year-old female who presents for multiple thyroid nodules. They are referred for surgical consultation from Dr. Sanchez and has been previously seen by Dr. Martinez of endocrinology. Patient notes that this has been an issue that has been under surveillance for the last 9 to 10 years. She reports that these nodules were initially discovered incidentally. She confirms a history of prior FNA approximately 9 to 10 years ago which as she recalls was benign. During the discovery of her nodule she was also found to have hyperthyroidism and has been on methimazole for a number of years before she was fairly recently taken off this medication by Dr. Martinez. They do not experience difficulty with swallowing. They do complain of a (more content not included)... Normal [facility] CBC W/Diff, Automatedon 10- Absolute Lymph 2.13 X10 3/uL Normal 0.83-4.51 [facility] Comment on above: Performed By: #### L 501.9985, L500.4050, L500.4100, L100.0100 #### [facility] [address] [place], [address] Absolute Neut 3.6 X10 3/uL Normal 2.0-7.7 [facility] Comment on above: Performed By: #### L 501.9985, L500.4050, L500.4100, L100.0100 #### [facility] [address] [place], [address] Basophils/100 WBC (Bld) 0.3 % Normal 0-1 [facility] Comment on above: Performed By: #### L 501.9985, L500.4050, L500.4100, L100.0100 #### [facility] [address] [place], [address] Eosinophils/100 WBC (Bld) 1.7 % Normal 0-5 [facility] Comment on above: Performed By: #### L 501.9985, L500.4050, L500.4100, L100.0100 #### [facility] [address] [place], [address] Erythrocyte distribution width (RBC) [Ratio] 12.0 % Normal 11.6-14.6 [facility] Comment on above: Performed By: #### L 501.9985, L500.4050, L500.4100, L100.0100 #### [facility] [address] [place], [address] Hematocrit (Bld) [Volume fraction] 44.8 % Normal 37-47 [facility] Comment on above: Performed By: #### L 501.9985, L500.4050, L500.4100, L100.0100 #### [facility] [address] [place], [address] Hemoglobin (Bld) [Mass/Vol] 14.2 g/dL Normal 12.0-15.0 [facility] Comment on above: Performed By: #### L 501.9985, L500.4050, L500.4100, L100.0100 #### [facility] [address] [place], [address] IG% 0.600 Normal 0.0-0.9 [facility] Comment on above: Result Comment: IG% - Immature Granulocytes (promyelocytes, myelocytes and metamyelocytes) > 1% indicates that a LEFT SHIFT is Present. Performed By: #### L 501.9985, L500.4050, L500.4100, L100.0100 #### [facility] [address] [place], [address] Lymphocytes/100 WBC (Bld) 33.0 % Normal 19-41 [facility] Comment on above: Performed By: #### L 501.9985, L500.4050, L500.4100, L100.0100 #### [facility] [address] [place], [address] MCH (RBC) [Entitic mass] 28.2 pg Normal 27.0-32.0 [facility] Comment on above: Performed By: #### L 501.9985, L500.4050, L500.4100, L100.0100 #### [facility] [address] [place], [address] MCHC (RBC) [Mass/Vol] 31.7 g/dL Low 32-36 [facility] Comment on above: Performed By: #### L 501.9985, L500.4050, L500.4100, L100.0100 #### [facility] [address] [place], [address] MCV (RBC) [Entitic vol] 89.1 fL Normal 81-99 [facility] Comment on above: Performed By: #### L 501.9985, L500.4050, L500.4100, L100.0100 #### [facility] [address] [place], [address] Monocytes/100 WBC (Bld) 8.8 % Normal 0-10 [facility] Comment on above: Performed By: #### L 501.9985, L500.4050, L500.4100, L100.0100 #### [facility] [address] [place], [address] Neutrophils/100 WBC (Bld) 55.6 % Normal 47-70 [facility] Comment on above: Performed By: #### L 501.9985, L500.4050, L500.4100, L100.0100 #### [facility] [address] [place], [address] Nucleated RBC (Bld) [#/Vol] 0 10*3/uL Normal 0-5 [facility] Comment on above: Performed By: #### L 501.9985, L500.4050, L500.4100, L100.0100 #### [facility] [address] [place], [address] Platelet mean volume (Bld) [Entitic vol] 11.3 fL Normal 6.2-12.0 [facility] Comment on above: Performed By: #### L 501.9985, L500.4050, L500.4100, L100.0100 #### [facility] [address] [place], [address] Platelets (Bld) [#/Vol] 198 10*3/uL Normal 150-450 [facility] Comment on above: Performed By: #### L 501.9985, L500.4050, L500.4100, L100.0100 #### [facility] [address] [place], [address] RBC (Bld) [#/Vol] 5.03 10*6/uL Normal 4.2-5.4 [facility] Comment on above: Performed By: #### L 501.9985, L500.4050, L500.4100, L100.0100 #### [facility] [address] [place], [address] RDW SD 39.2 fl Normal 35.1-43.9 [facility] Comment on above: Performed By: #### L 501.9985, L500.4050, L500.4100, L100.0100 #### [facility] [address] [place], [address] WBC (Bld) [#/Vol] 6.5 10*3/uL Normal 4.4-11.0 [facility] Comment on above: Performed By: #### L 501.9985, L500.4050, L500.4100, L100.0100 #### [facility] [address] [place], [address] Comprehensive Metabolic Prof [facility] 03-18-2024 Albumin [Mass/Vol] 3.5 g/dL Normal 3.2-5.0 [facility] Comment on above: Performed By: #### L 501.9985, L500.4050, L500.4100, L100.0100 #### [facility] [address] [place], [address] Albumin/Globulin [Mass ratio] 0.9 {ratio} Normal 0.9-2.4 [facility] Comment on above: Performed By: #### L 501.9985, L500.4050, L500.4100, L100.0100 #### [facility] [address] [place], [address] ALK P 81 U/L Normal 45-117 [facility] Comment on above: Performed By: #### L 501.9985, L500.4050, L500.4100, L100.0100 #### [facility] [address] [place], [address] ALT [Catalytic activity/Vol] 20 U/L Normal 13-56 [facility] Comment on above: Performed By: #### L 501.9985, L500.4050, L500.4100, L100.0100 #### [facility] [address] [place], [address] AST [Catalytic activity/Vol] 16 U/L Normal 15-37 [facility] Comment on above: Performed By: #### L 501.9985, L500.4050, L500.4100, L100.0100 #### [facility] [address] [place], [address] Bilirubin [Mass/Vol] 0.60 mg/dL Normal 0.20-1.00 [facility] Comment on above: Result Comment: For patients on eltrombopag therapy, use of Dimension [place] TBIL is not recommended. Performed By: #### L 501.9985, L500.4050, L500.4100, L100.0100 #### [facility] [address] [place], [address] BUN/CRE 36.7 RATIO High 10-20 [facility] Comment on above: Performed By: #### L 501.9985, L500.4050, L500.4100, L100.0100 #### [facility] [address] [place], [address] CA,Total 10.5 mg/dL High 8.5-10.1 [facility] Comment on above: Performed By: #### L 501.9985, L500.4050, L500.4100, L100.0100 #### [facility] [address] [place], [address] Chloride [Moles/Vol] 106 mmol/L Normal 98-107 [facility] Comment on above: Performed By: #### L 501.9985, L500.4050, L500.4100, L100.0100 #### [facility] [address] [place], [address] CO2 [Moles/Vol] 30.0 mmol/L Normal 21.0-32.0 [facility] Comment on above: Performed By: #### L 501.9985, L500.4050, L500.4100, L100.0100 #### [facility] [address] [place], [address] Creatinine [Mass/Vol] 0.68 mg/dL Normal 0.55-1.02 [facility] Comment on above: Result Comment: The validity of the calculated GFR GFRAA in patients over 70 years has not been determined. Clinical correlation is essential. Performed By: #### L 501.9985, L500.4050, L500.4100, L100.0100 #### [facility] [address] [place], [address] EST GFR - AA 111 mL/min Normal >60 [facility] Comment on above: Result Comment: Afri can Salvadorean GFR Calc Performed By: #### L 501.9985, L500.4050, L500.4100, L100.0100 #### [facility] [address] [place], [address] GAP 5 Normal 5-15 [facility] Comment on above: Performed By: #### L 501.9985, L500.4050, L500.4100, L100.0100 #### [facility] [address] [place], [address] GFR/1.73 sq M.predicted among non-blacks MDRD (S/P/Bld) [Vol rate/Area] 92 mL/min/{1.73_m2} Normal >60 [facility] Comment on above: Result Comment: Non- GFR Calc Performed By: #### L 501.9985, L500.4050, L500.4100, L100.0100 #### [facility] [address] [place], [address] Globulin (S) [Mass/Vol] 3.9 g/dL Normal 2.2-4.2 [facility] Comment on above: Performed By: #### L 501.9985, L500.4050, L500.4100, L100.0100 #### [facility] [address] [place], [address] Glucose [Mass/Vol] 92 mg/dL Normal 74-106 [facility] Comment on above: Performed By: #### L 501.9985, L500.4050, L500.4100, L100.0100 #### [facility] [address] [place], [address] Potassium [Moles/Vol] 4.4 mmol/L Normal 3.5-5.1 [facility] Comment on above: Performed By: #### L 501.9985, L500.4050, L500.4100, L100.0100 #### [facility] [address] [place], [address] Sodium [Moles/Vol] 141 mmol/L Normal 136-145 [facility] Comment on above: Performed By: #### L 501.9985, L500.4050, L500.4100, L100.0100 #### [facility] [address] [place], [address] T PROT 7.4 g/dL Normal 6.4-8.2 [facility] Comment on above: Performed By: #### L 501.9985, L500.4050, L500.4100, L100.0100 #### [facility] [address] [place], [address] Urea nitrogen [Mass/Vol] 25 mg/dL High 7-18 [facility] Comment on above: Performed By: #### L 501.9985, L500.4050, L500.4100, L100.0100 #### [facility] [address] [place], [address] Hemoglobin A1con 03-18-2024 HbA1c (Bld) [Mass fraction] 5.6 % Normal 3.8-5.6 [facility] Comment on above: Result Comment: Norm al < 5.7 % Prediabetic 5.7 - 6.4 % Diabetic >or= 6.5 % Please note range changes. Performed By: #### L 501.9985, L500.4050, L500.4100, L100.0100 #### [facility] [address] [place], [place], [address] Internal Medicine Office Vis iton 03-18-2024 Internal Medicine Office Visit [facility] [address] [place], [place] [address] OFFICE VISIT Date of Service: 03/18/24 MR#: [id number] Acct: [id number] Name: NELSON BONILLA Rep #: [id number] : 1955 Provider: Dr. Dior an MD Age/Sex: 68/F Location: [facility] Status: Signed Intake Vital Signs 09/16/23 09:21 03/18/24 09:26 Height 5 ft 3 in 5 ft 3 in Weight: 139 lb 4 oz BMI 24.6 BP 120/74 Blood Pressure Location Lt brachial Position Sitting Respiration 16 Pulse 84 Pulse Source Monitor Temp 98.7 F Temp Source Temporal Pulse Oximetry (%) 98 Oxygen Delivery Method room air Intake Visit Reasons: 6 m fu Chief Complaint: FU Chronic Conditions Plow Shaker Required: No Accompanied by: Self Is patient in pain?: Yes (b/l upper arm pain , left lower leg ) Pain scale (1-10): 2 Allergies amoxicillin Allergy (Mild, Verified 03/18/24 09:23) Hives chlorpheniramine (From Aller-Chlor Decongestant) Allergy (Verified 03/18/24 09:23) palpitations pseudoephedrine (From Aller-Chlor Decongestant) Allergy (Verified 03/18/24 09:23) palpitations Medications ???Medication ???Instructions ???Recorded ???Confirmed ???Type cholecalciferol (vitamin D3) 25 25 mcg PO MOWEFR 07/16/20 03/18/24 History mcg (1,000 unit) capsule esomeprazole magnesium 20 mg 20 mg PO DAILY 08/24/20 03/18/24 History capsule,delayed release venlafaxine 37.5 mg See Rx Instructions .Route 05/25/23 03/18/24 Rx capsule,extended release 24 hr .COMPLEX #90 CAPSULES potassium chloride 10 mEq 10 meq PO QDAY #90 caps 03/15/24 03/18/24 Rx capsule,extended release Have you fallen in the past year?: No PFSH Medical History (Updated 03/18/24 @ 12:[address] Dior Sanchez MD) Bilateral shoulder pain Chronic back pain Post-menopausal Dermatitis Ganglion cyst Anxiety and depression Borderline type 2 diabetes mellitus Elbow pain, right Seizure disorder Pneumonia Bronchitis Upper respiratory infection, acute Elevated blood pressure reading Hyperthyroidism Snoring Breathing-related sleep disorder Low back pain Pain in right shoulder GERD (gastroesophageal reflux disease) Pulmonary embolism Depression Benign essential HTN Surgical History history of A/P repair H/O tubal ligation Family History Mother Diabetes Myocardial infarction CVA (cerebral vascular accident) Thyroid disorder Cancer skin Kidney disease Father Myocardial infarction Heart disease Sister Lupus Thyroid disorder Social History current occupational status: retired Smoking Status: Former smoker quit date: 06/08/98 pack-years: 30 second hand exposure: No alcohol intake: current alcohol intake frequency: holidays/special occasions only Alcohol type: beer substance use type: does not use caffeine: Yes what type of physical activity do you participate in: walking frequency: 1-2 times per week seatbelt use: always do you feel safe at home: Yes additional social history: Colleen [employer] [facility] HPI Chief Complaint: FU Chronic Conditions Details: NELSON BONILLA, is a 68 F who presents to the office today for follow-up of her chronic medical conditions. Also has some concerns. She reports bilateral shoulder area pain. Worse at night and with certain movements. Finds Tylenol helpful. No known injury. No numbness or tingling down her extremities. History of hypertension currently not on any medication. Stays active. Blood pressure today at 120/74 mmHg. She states that her readings at home have been stable as well. Other chronic medical conditions are stable. ROS Const Constitutional: No body ache, chills, excessive sweating, fatigue, fever(s), frequent falls, headache(s), snoring, weakness or change in appetite Eyes Eyes: No blurry vision, change in vision, bulging eyes, floaters, visual disturbances, eye pain or Light sensitivity ENT ENT: No abnormal hearing, ear or mastoid pain, tinnitus, balance problems, nosebleed/epistaxis, nasal congestion, headache(s), neck pain or sore throat Resp Respiratory: No cough, excessive phlegm production, pain on inspiration, shortness of breath, snoring or wheezing Cardio Cardiology: No chest pain at rest, chest pain with exertion, excessive sweating, dyspnea on exertion, lightheadedness, orthopnea or palpitations Gastro GI: No abdominal pain, change in bowel habits, constipation, cramping, diarrhea, nausea/dyspepsia or vomiting Genitourinary-Female : No burning urination, painful urination, urinary incontinence, urinary frequency, suprapubic fullness or side pain Musc Musculoskeletal: Positive for joint pain; (more content not included)... Normal [facility] Lipid Profileon 03-18-2024 Cholesterol [Mass/Vol] 169 mg/dL Normal 200 [facility] Comment on above: Result Comment: <200 mg/dL Desirable 200-240 mg/dL Borderline >240 mg/dL High Risk Performed By: #### L 501.9656, L500.4050, L500.4100, L100.0100 #### [facility] [address], [address] Cholesterol in HDL [Mass/Vol] 65 mg/dL Normal [facility] Comment on above: Result Comment: The drugs N-Acetylcysteine and Metamizole may falsely depress this assay. Reference Range HDL <40 mg/dL Low HDL Cholesterol HDL >or= 60 mg/dL High HDL Cholesterol Performed By: #### L 501.9985, L500.4050, L500.4100, L100.0100 #### [facility] [address] [place], [address] Cholesterol in LDL [Mass/Vol] 82 mg/dL Normal 0-130 [facility] Comment on above: Performed By: #### L 501.9985, L500.4050, L500.4100, L100.0100 #### [facility] [address] [place], [address] Cholesterol in VLDL [Mass/Vol] 22 mg/dL Normal 5-40 [facility] Comment on above: Performed By: #### L 501.9985, L500.4050, L500.4100, L100.0100 #### [facility] [address] [place], [address] Triglyceride [Mass/Vol] 111 mg/dL Normal [facility] Comment on above: Result Comment: The drugs N-Acetylcysteine and Metamizole may falsely depress this assay. Serum Triglycerides Reference Interval Normal <150 mg/dL Borderline high 150 - 199 mg/dL High 200 - 499 mg/dL Very High > or = 500 mg/dL Performed By: #### L 501.9985, L500.4050, L500.4100, L100.0100 #### [facility] [address] [place], [address] Shoulder min 2 Viewson 03-18 Shoulder min 2 Views [facility] Imaging Services [address] [place] [address] Shoulder min 2 Views MR#: [id number] Acct: [id number] Name: NELSON BONILLA Rep #: [id number] : 1955 F 68 From: Vasile Mao PCP: Dr. Dior Sanchez MD Status: REG CLI Study: Shoulder min 2 Views Date of Exam: 03/18/24 Exam# [id number] Ordering Dr: Dior Sanchez MD [id number] INDICATION: pain EXAMINATION/TECHNIQU E: X-RAY - LEFT XR Shoulder Min 2 Views COMPARISON: No previous relevant examinations for comparison. ____ FINDINGS: SOFT TISSUES: No soft tissue swelling or gas. No radiopaque foreign body. BONES/JOINTS: 1. No acute fracture or subluxation.. Normal alignment. Preservation of the joint space.. No sclerotic or destructive changes observed. 2. There is normal glenohumeral motion. There is normal alignment of the acromioclavicular joint. 3. The clavicle, acromion, scapula and rib cage have normal appearance. RAD/Shoulder min 2 Views IMPRESSION: 1. No fracture malalignment or focal bony or joint space abnormality involving the shoulder.. Electronically Signed: Vasile Mccoy MD at 19:46 EDT , CC: Dr. Dior Sanchez MD Medical Delivery Driver: Signed Normal [facility] Shoulder min 2 Views [facility] Imaging Services [address] [place], [place] [id number] Shoulder min 2 Views MR#: [id number] Acct: [id number] Name: NELSON BONILLA Rep #: [id number] : 1955 68 From: Vasile Mao PCP: Dr. Dior Sanchez MD Status: REG CLI Study: Shoulder min 2 Views Date of Exam: 03/18/24 Exam# [id number] Ordering Dr: Dior Sanchez MD [id number] INDICATION: Bilateral Shoulder Pain EXAMINATION/TECHNIQU E: X-RAY - RIGHT XR Shoulder Min 2 Views COMPARISON: 05/05/2017 ____ FINDINGS: SOFT TISSUES: No soft tissue swelling or gas. No radiopaque foreign body. BONES/JOINTS: 1. No acute fracture or subluxation.. Normal alignment. Preservation of the joint space.. No sclerotic or destructive changes observed. 2. There is normal glenohumeral motion. There is normal alignment of the acromioclavicular joint. 3. The clavicle, acromion, scapula and rib cage have normal appearance. RAD/Shoulder min 2 Views IMPRESSION: 1. Stable exam. 2. No fracture malalignment or focal bony or joint space abnormality involving the shoulder.. Electronically Signed: Vasile Mccoy MD at 19:46 EDT , CC: Dr. Dior Sanchez MD Medical Delivery Driver: Signed Normal [facility] Thyroidon 03-08-2024 Thyroid [facility] Imaging Services [address] [place] [address] Thyroid MR#: [id number] Acct: [id number] Name: NELSON BONILLA Rep #: [id number] : 1955 F 68 From: See Delgadillo MD PCP: Dr. Dior Sanchez MD Status: REG CLI Study: Thyroid Date of Exam: 03/08/24 Exam# [id number] Ordering Dr: Mika Mejia MD [id number] STUDY: THYROID ULTRASOUND REASON FOR EXAM: Female, 68 years old. Yearly check- nodules TECHNIQUE: Ultrasound evaluation of the thyroid was performed with real-time and static jean-baptiste-scale imaging. COMPARISON: 03/16/2023. FINDINGS: RIGHT LOBE: The right lobe of the thyroid gland measures 5.4 x 1.9 x 1.5 cm. There is a heterogeneous echotexture. Therefore complex solid nodules in the thyroid lobe. Nodule 1 in the anterior upper thyroid lobe measures 1.34 x 0.77 x 1.10 cm. Solid hypoechoic nodule 2 in the posterior mid thyroid lobe measures 1.74 x 0.73 x 1.6 cm. Solid complex nodule 3 with calcifications posterior lateral lower thyroid lobe measures 2.4 x 1.41 x 1.47 cm. Solid hypoechoic nodule 4 with small central calcification in the medial lower thyroid lobe measures 1.46 x 0.63 x 1.2 cm. LEFT LOBE: The left lobe of the thyroid gland measures 4.7 x 1.3 x 1.1 cm. There is a heterogeneous echotexture. There are 2 complex nodules in the left thyroid lobe. Solid nodule 1 in the upper central thyroid lobe is hypoechoic with central calcification. This measures 0.86 x 0.70 x 0.60 cm. Mixed solid and cystic nodule 2 in the medial aspect of the report thyroid lobe measures 0.75 x 0.41 x 0.53 cm. ISTHMUS: The isthmus measures 0.3 cm. . US/Thyroid IMPRESSION: 1. 4 complex nodules in the right thyroid lobe and 2 complex nodules in the left thyroid lobe. Previously 4 complex nodules in the right thyroid lobe and 3 complex nodules in the left thyroid lobe. 2. Nodule 1 in the right anterior upper thyroid lobe measures 1.34 x 0.77 x 1.10 cm, previously 1.65 x 0.77 x 1.65 cm. TI-RADS points: 3. TI-RADS category: TR3. This nodule is mildly suspicious but no FNA or follow-up is necessary given the small size of this nodule. 3. Solid hypoechoic nodule 2 in the right posterior mid thyroid lobe measures 1.74 x 0.73 x 1.6 cm, previously 1.13 x 0.71 x 1.02 cm. TI-RADS points: 4. TI-RADS category: TR4. This nodule is moderately suspicious. Recommend FNA evaluation. 4. Solid complex nodule 3 with calcifications in the right posterior lateral lower thyroid lobe measures 2.4 x 1.41 x 1.47 cm, previously 1.25 x 0.68 x 0.93 cm. TI-RADS points: 4. TI-RADS category: TR4. This nodule is moderately suspicious. Recommend FNA evaluation. 5. Solid hypoechoic nodule 4 with central calcification in the right medial lower thyroid lobe measures 1.46 x 0.63 x 1.2 cm, previously 1.70 x 0.99 x 1.31 cm. TI-RADS points: 4. TI-RADS category: TR4. This nodule is moderately suspicious. Recommend FNA evaluation. 6. Solid nodule 1 in the left upper central thyroid lobe is hypoechoic with central calcification. This measures 0.86 x 0.70 x 0.60 cm, previously 0.85 x 0.65 x 0.77 cm. TI-RADS points: 8. TI-RADS category: TR5. This nodule is highly suspicious. Recommend follow-up thyroid ultrasounds annually for 4 years. 7. Mixed solid and cystic nodule 2 in the medial aspect of the left lower thyroid lobe measures 0.75 x 0.41 x 0.53 cm, previously 0.64 x 0.29 x 0.60 cm. TI-RADS points: 2. TI-RADS category: TR2. This nodule is not suspicious and no FNA or follow-up is necessary. Electronically Signed: See Delgadillo MD at 12:03 EDT Reading Location ID and State: [address] [place] [address] , Service support , CC: Dr. Dior Sanchez MD; Dr. Mika Mejia MD Medical Delivery Driver: Signed Normal [facility] Culture, urineOrdered By: Hossein Vega on 09-01-2023 Bacteria identified Cx Nom (U) Culture exhibits no growth. [facility] - Chemistry and C hemistry - challengeon 09-01-2023 Bilirubin Ql (U) Negative [facility] Glucose Ql (U) Negative [facility] Ketones Ql (U) Small (15+) [facility] pH (U) 5.0 [pH] [facility] Specific gravity (U) [Rel density] 1.015 [facility] Urobilinogen (U) [Mass/Vol] Negative [facility] - Hematology and Cell countson 09-01-2023 Hemoglobin Ql (U) Negative [facility] - Specimen inform ationon 09-01-2023 Clarity (U) Slightly Hazy [facility] Color (U) YELLOW [facility] - Urinalysison Nitrite Ql (U) Negative [facility] Protein Ql (U) Negative [facility] No Panel Informationon 08-31 Urine Leukocytes Positive [facility] Urine Non-Hemolyzed Blood Negative [facility] Basophil percentageOrdered B y: Rachel Littlejohn on 04-15-2023 Basophil percentage Not Reportable [facility] Erythrocyte sedimentation ra teOrdered By: Rachel Littlejohn on 04-15-2023 ESR (Bld) [Velocity] 7 mm/h 0-30 [facility] - Chemistry and C hemistry - challengeOrdered By: Rachel Littlejohn on 04-15-2023 Magnesium [Mass/Vol] 1.8 mg/dL 1.6-2.6 [facility] No Panel InformationOrdered By: Rachel Littlejohn on 04-15-2023 Anti-Nuclear Antibody Screen Negative Negative [facility] Comment on above: Performed at: [address] [id number] Director: Nic Carlson PhD, Phone: [phone] Centromere B Antibody Not Reportable [facility] VENEER SANDER Antibody Not Reportable [facility] Serum DNA double strand anti body assay (units/volume)Ordered By: Rachel Littlejohn on 04-15-2023 DNA double strand Ab Qn (S) Not Reportable [facility] Serum Radha-1 antibody assay (u nits/volume)Ordered By: Rachel Littlejohn on 04-15-2023 Radha-1 extractable nuclear Ab Qn (S) Not Reportable [facility] Serum Scl-70 extractable nuc lear antibody assay (units/volume)Ordered By: Rachel Littlejohn on 11-08-2023 SCL-70 extractable nuclear Ab Qn (S) Not Reportable [facility] Serum Marie extractable nucl ear antibody detectionOrdered By: Rachel Littlejohn on 04-15-2023 Marie extractable nuclear Ab Ql (S) Not Reportable [facility] Serum or plasma C reactive p rotein measurement (mass/volume)Ordered By: Rachel Littlejohn on 04-15-2023 CRP [Mass/Vol] 3.79 mg/L 0.0-3.0 [facility] Comment on above: C-Reactive Protein ( CRP) provides useful information for thediagnosis, therapy and monitoring of inflammatory processesand associated diseases. For the evaluation of Relative Riskfor Cardiovascular Disease, a High Sensitivity CRP (HSCRP)should be ordered. Absolute lymphocyte countOrd ered By: Dior Sanchez on 03-06-2023 Lymphocytes Auto (Unsp spec) [#/Vol] 2.33 10*3/uL 0.83-4.51 [facility] Basophil percentageOrdered B y: Dior Sanchez on 03-06-2023 Basophils/100 WBC (Bld) 0.5 % 0-1 [facility] Bilirubin [Mass/Vol] 0.70 mg/dL 0.20-1.00 [facility] Comment on above: For patients on eltr ombopag therapy, use of Dimension [place] TBIL is not recommended. Chloride [Moles/Vol] 106 mmol/L 98-107 [facility] Eosinophils/100 WBC (Bld) 1.8 % 0-5 [facility] Glucose [Mass/Vol] 103 mg/dL 74-106 [facility] Comment on above: Fasting Glucose resu lt from 100 to 125 mg/dL suggests IMPAIRED HOMEOSTASIS per A.D.A. criteria. Neutrophils (Bld) [#/Vol] 3.3 10*3/uL 2.0-7.7 [facility] Neutrophils/100 WBC (Bld) 52.3 % 47-70 [facility] Potassium [Moles/Vol] 4.0 mmol/L 3.5-5.1 [facility] Protein [Mass/Vol] 7.4 g/dL 6.4-8.2 [facility] Sodium [Moles/Vol] 139 mmol/L 136-145 [facility] WBC (Bld) [#/Vol] 6.2 10*3/uL 4.4-11.0 [facility] Blood erythrocytes count (nu mber/volume)Ordered By: Dior Sanchez on 03-06-2023 RBC (Bld) [#/Vol] 4.76 10*6/uL 4.2-5.4 [facility] Blood hemoglobin measurement (mass/volume)Ordered By: Dior Sanchez on 03-06-2023 Hemoglobin (Bld) [Mass/Vol] 13.7 g/dL 12.0-15.0 [facility] Blood lymphocytes/100 leukoc ytesOrdered By: terramolenaleroy Sanchez on 03-06-2023 Lymphocytes/100 WBC (Bld) 37.4 % 19-41 [facility] Blood monocytes/100 leukocyt esOrdered By: [facility] on 03-06-2023 Monocytes/100 WBC (Bld) 7.7 % 0-10 [facility] Blood platelet mean volumeOr dered By: terramolenaleroy Sanchez on 03-06-2023 Platelet mean volume (Bld) [Entitic vol] 11.3 fL 6.2-12.0 [facility] Determination of erythrocyte mean corpuscular volume (MCV)Ordered By: Dior Sanchez on 03-06-2023 MCV (RBC) [Entitic vol] 91.0 fL 81-99 [facility] Hematocrit Auto (Bld) [Volum e fraction]Ordered By: Dior Sanchez on 03-06-2023 Hematocrit (Bld) [Volume fraction] 43.3 % 37-47 [facility] - Chemistry and C hemistry - challengeOrdered By: terramolenaleroy Sanchez on 03-06-2023 ALP [Catalytic activity/Vol] 75 U/L 45-117 [facility] ALT [Catalytic activity/Vol] 28 U/L 13-56 [facility] CO2 [Moles/Vol] 28.0 mmol/L 21.0-32.0 [facility] Free T4 [Mass/Vol] 0.90 ng/dL 0.76-1.46 [facility] Globulin (S) [Mass/Vol] 3.7 g/dL 2.2-4.2 [facility] Urea nitrogen/Creatinine [Mass ratio] 33.7 mg/mg 10-20 [facility] - Hematology and Cell countson 03-06-2023 HbA1c (Bld) [Mass fraction] 5.5 % 4.2-6.3 [facility] - Hematology and Cell countsOrdered By: Dior Sanchez on 03-06-2023 Erythrocyte distribution width (RBC) [Entitic vol] 41.1 fL 35.1-43.9 [facility] Erythrocyte distribution width (RBC) [Ratio] 12.4 % 11.6-14.6 [facility] Immature granulocytes/100 WBC (Bld) 0.300 % 0.0-0.9 [facility] Comment on above: IG% - Immature Granu locytes (promyelocytes, myelocytes and metamyelocytes) > 1% indicates that a LEFT SHIFT is Present. MCH (RBC) [Entitic mass] 28.8 pg 27.0-32.0 [facility] Nucleated RBC/100 WBC (Bld) [Ratio] 0 % 0-5 [facility] MCHC Auto (RBC) [Mass/Vol]Or dered By: Dior Sanchez on 03-06-2023 MCHC (RBC) [Mass/Vol] 31.6 g/dL 32-36 [facility] No Panel InformationOrdered By: Dior Sanchez on 03-06-2023 Estimated GFR (MDRD) Amer 101 mL/min >60 [facility] Comment on above: GFR Calc Estimated GFR (MDRD) Non-Af Amer 83 mL/min >60 [facility] Comment on above: Non- GFR Calc Reverse Triiodothyronine (T3) 13.5 ng/dL 9.2-24.1 [facility] Comment on above: Performed at: [address] [id number] Director: Shante Rodriguez MD, Phone: [phone] Thyroid Stimulating Hormone (TSH) 0.71 uIU/mL 0.358-3.74 [facility] No Panel InformationOrdered By: Thong Martinez on 03-06-2023 Free Triiodothyronine (T3) pg/dL 2.9 pg/mL 2.18-3.98 [facility] Platelets bldOrdered By: Titi josue Laura on 03-06-2023 Platelets (Bld) [#/Vol] 203 10*3/uL 150-450 [facility] Serum or plasma albumin magno urement (mass/volume)Ordered By: Dior Sanchez on 03-06-2023 Albumin [Mass/Vol] 3.7 g/dL 3.2-5.0 [facility] Serum or plasma albumin/glob ulin mass ratioOrdered By: Dior Sanchez on 03-06-2023 Albumin/Globulin [Mass ratio] 1.0 {ratio} 0.9-2.4 [facility] Serum or plasma calcium magno urement (mass/volume)Ordered By: Dior Sanchez on 03-06-2023 Calcium [Mass/Vol] 10.4 mg/dL 8.5-10.1 [facility] Serum or plasma creatinine m easurement (mass/volume)Ordered By: Dior Sanchez on 03-06-2023 Creatinine [Mass/Vol] 0.74 mg/dL 0.55-1.02 [facility] Comment on above: The validity of the calculated GFR & GFRAA in patients over 70 years has not been determined. Clinical correlation is essential. Serum or plasma urea nitroge n measurement (mass/volume)Ordered By: Dior Sanchez on 03-06-2023 Urea nitrogen [Mass/Vol] 25 mg/dL 7-18 [facility] Thin prep Papanicolaou smear with manual screeningOrdered By: Dior Sanchez on 03-06-2023 Thin prep Papanicolaou smear with manual screening 19 U/L 15-37 [facility] Thin prep Papanicolaou smear with manual screening 5 5-15 [facility] Basophil percentageOrdered B y: Bryce Wong on 11-28-2022 Basophil percentage 0-5 SEEN /hpf 0-5 [facility] Bilirubin Test strip Ql (U)O rdered By: Bryce Wong on 11-28-2022 Bilirubin Ql (U) Negative Negative [facility] Culture, urineOrdered By: St matt Wong on 11-28-2022 Bacteria identified Cx Nom (U) Positive [facility] Ketones Test strip Ql (U)Ord ered By: Bryce Wong on 11-28-2022 Ketones Ql (U) Negative Negative [facility] - Chemistry and C hemistry - challengeon 11-28-2022 Bilirubin Ql (U) Small (1+) [facility] Glucose Ql (U) Negative [facility] Ketones Ql (U) Negative [facility] pH (U) 6.0 [pH] [facility] Specific gravity (U) [Rel density] 1.010 [facility] Urobilinogen (U) [Mass/Vol] Negative [facility] - Hematology and Cell countson 11-28-2022 Hemoglobin Ql (U) Negative [facility] - Specimen inform ationon 11-28-2022 Clarity (U) Clear [facility] Color (U) Dk Yellow [facility] - Urinalysison Nitrite Ql (U) Negative [facility] Mucus LM Ql (Urine sed)Order ed By: Bryce Wong on 11-28-2022 Mucus Ql (Urine sed) 0 SEEN /hpf [facility] Nitrite Test strip Ql (U)Ord ered By: Bryce Wong on 11-28-2022 Nitrite Ql (U) Negative Negative [facility] No Panel Informationon 11-28 Urine Leukocytes Positive [facility] Urine Non-Hemolyzed Blood [facility] Protein Test strip Ql (U)Ord ered By: Bryce Wong on 11-28-2022 Protein Ql (U) 15 mg/dl Negative [facility] Squamous epithelial cells de tection in urine sediment by light microscopyOrdered By: Bryce Wong on 11-28-2022 Epithelial cells.squamous LM Ql (Urine sed) 0-5 SEEN /hpf 5-10 [facility] Urine blood detectionOrdered By: Bryce Wong on 11-28-2022 RBC Ql (U) Negative Negative [facility] RBC Ql (U) 0 SEEN /hpf 0-5 [facility] Urine clarityOrdered By: Jose Wong on 11-28-2022 Clarity (U) Clear Clear [facility] Urine color determinationOrd ered By: Bryce Wong on 11-28-2022 Color (U) Yellow Yellow [facility] Urine glucose detectionOrder ed By: Bryce Wong on 11-28-2022 Glucose Ql (U) Normal mg/dl Normal [facility] Urine leukocyte esterase det ection by dipstickOrdered By: Bryce Wong on 11-28-2022 Leukocyte esterase Test strip Ql (U) 100 /ul Negative [facility] Urine pHOrdered By: Bryce winter on 11-28-2022 pH (U) 6.5 [pH] 5.0 - 8.0 [facility] Urine sediment bacteria coun t by microscopy (number/high power field)Ordered By: Bryce Wong on 11-28-2022 Bacteria LM.HPF (Urine sed) [#/Area] 0 /[HPF] None Seen [facility] Urine specific gravity measu rementOrdered By: Bryce Wong on 11-28-2022 Specific gravity (U) [Rel density] 1.015 1.002-1.030 [facility] Urobilinogen Auto test strip Ql (U)Ordered By: Bryce Wong on 11-28-2022 Urobilinogen Ql (U) Normal mg/dl Normal [facility] Basophil percentageOrdered B y: Thong Martinez on 09-17-2022 Bilirubin [Mass/Vol] 0.50 mg/dL 0.20-1.00 [facility] Comment on above: For patients on eltr ombopag therapy, use of Dimension [place] TBIL is not recommended. Chloride [Moles/Vol] 105 mmol/L 98-107 [facility] Glucose [Mass/Vol] 89 mg/dL 74-106 [facility] Potassium [Moles/Vol] 3.9 mmol/L 3.5-5.1 [facility] Protein [Mass/Vol] 7.4 g/dL 6.4-8.2 [facility] Sodium [Moles/Vol] 138 mmol/L 136-145 [facility] Laboratory - Chemistry and C hemistry - challengeOrdered By: Thong Martinez on 09-17-2022 ALP [Catalytic activity/Vol] 71 U/L 45-117 [facility] ALT [Catalytic activity/Vol] 25 U/L 13-56 [facility] CO2 [Moles/Vol] 31.0 mmol/L 21.0-32.0 [facility] Free T4 [Mass/Vol] 1.00 ng/dL 0.76-1.46 [facility] Globulin (S) [Mass/Vol] 3.9 g/dL 2.2-4.2 [facility] Urea nitrogen/Creatinine [Mass ratio] 27.6 mg/mg 10-20 [facility] No Panel InformationOrdered By: Thong Martinez on 09-17-2022 Estimated GFR (MDRD) Amer 110 mL/min >60 [facility] Comment on above: GFR Calc Estimated GFR (MDRD) Non-Af Amer 91 mL/min >60 [facility] Comment on above: Non- GFR Calc Free Triiodothyronine (T3) pg/dL 3.0 pg/mL 2.18-3.98 [facility] Parathyroid Hormone (Intact) 76.3 pg/mL 18.4-80.1 [facility] Thyroid Stimulating Hormone (TSH) 0.10 uIU/mL 0.358-3.74 [facility] Vitamin D 25-Hydroxy 47.3 ng/mL [facility] Comment on above: Vitamin D 25(OH) Sta tus Range Deficiency <20 ng/mL (50nmol/L) Insufficiency 20 - 30 ng/mL (50 - 75 nmol/L) Sufficiency 30 - 100 ng/mL (75 - 250 nmol/L) Toxicity >100 ng/mL (>250 nmol/L) Serum or plasma albumin magno urement (mass/volume)Ordered By: Thong Martinez on 09-17-2022 Albumin [Mass/Vol] 3.5 g/dL 3.2-5.0 [facility] Serum or plasma albumin/glob ulin mass ratioOrdered By: Thong Martinez on 09-17-2022 Albumin/Globulin [Mass ratio] 0.9 {ratio} 0.9-2.4 [facility] Serum or plasma calcium magno urement (mass/volume)Ordered By: Thong Martinez on 09-17-2022 Calcium [Mass/Vol] 10.7 mg/dL 8.5-10.1 [facility] Serum or plasma creatinine m easurement (mass/volume)Ordered By: Thong Martinez on 09-17-2022 Creatinine [Mass/Vol] 0.69 mg/dL 0.55-1.02 [facility] Comment on above: The validity of the calculated GFR & GFRAA in patients over 70 years has not been determined. Clinical correlation is essential. Serum or plasma urea nitroge n measurement (mass/volume)Ordered By: Thong Martinez on 09-17-2022 Urea nitrogen [Mass/Vol] 19 mg/dL 7-18 [facility] Thin prep Papanicolaou smear with manual screeningOrdered By: Thong Martinez on 09-17-2022 Thin prep Papanicolaou smear with manual screening 15 U/L 15-37 [facility] Thin prep Papanicolaou smear with manual screening 2 5-15 [facility] - Hematology and Cell countson 09-16-2022 HbA1c (Bld) [Mass fraction] 5.7 % 4.2-6.3 [facility] Basophil percentageon 2021 Bilirubin [Mass/Vol] 0.60 mg/dL 0.20-1.00 [facility] Work Phone: Comment on above: For patients on eltr ombopag therapy, use of Dimension [place] TBIL is not recommended. Chloride [Moles/Vol] 103 mmol/L 98-107 [facility] Work Phone: Glucose [Mass/Vol] 96 mg/dL 74-106 [facility] Work Phone: Potassium [Moles/Vol] 3.5 mmol/L 3.5-5.1 [facility] Work Phone: Protein [Mass/Vol] 7.3 g/dL 6.4-8.2 [facility] Work Phone: Sodium [Moles/Vol] 141 mmol/L 136-145 [facility] Work Phone: Laboratory - Chemistry and C hemistry - challengeon 03-19-2022 ALP [Catalytic activity/Vol] 69 U/L 45-117 [facility] Work Phone: ALT [Catalytic activity/Vol] 28 U/L 13-56 [facility] Work Phone: CO2 [Moles/Vol] 32.0 mmol/L 21.0-32.0 [facility] Work Phone: Free T4 [Mass/Vol] 0.91 ng/dL 0.76-1.46 [facility] Work Phone: Globulin (S) [Mass/Vol] 3.8 g/dL 2.2-4.2 [facility] Work Phone: Urea nitrogen/Creatinine [Mass ratio] 26.3 mg/mg 10- [facility] Work Phone: No Panel Informationon 03-19 Estimated GFR (MDRD) Amer 104 mL/min >60 [facility] Work Phone: Comment on above: GFR Calc Estimated GFR (MDRD) Non-Af Amer 86 mL/min >60 [facility] Work Phone: Comment on above: Non- GFR Calc Free Triiodothyronine (T3) pg/dL 3.1 pg/mL 2.18-3.98 [facility] Work Phone: Parathyroid Hormone (Intact) 93.8 pg/mL 18.4-80.1 [facility] Work Phone: Thyroid Stimulating Hormone (TSH) 0.32 uIU/mL 0.358-3.74 [facility] Work Phone: Vitamin D 25-Hydroxy 39.4 ng/mL [facility] Work Phone: Comment on above: Vitamin D 25(OH) Sta tus Range Deficiency <20 ng/mL (50nmol/L) Insufficiency 20 - 30 ng/mL (50 - 75 nmol/L) Sufficiency 30 - 100 ng/mL (75 - 250 nmol/L) Toxicity >100 ng/mL (>250 nmol/L) Serum or plasma albumin magno urement (mass/volume)on 03-19-2022 Albumin [Mass/Vol] 3.5 g/dL 3.2-5.0 [facility] Work Phone: Serum or plasma albumin/glob ulin mass ratioon 03-19-2022 Albumin/Globulin [Mass ratio] 0.9 {ratio} 0.9-2.4 [facility] Work Phone: Serum or plasma calcium magno urement (mass/volume)on 03-19-2022 Calcium [Mass/Vol] 10.4 mg/dL 8.5-10.1 [facility] Work Phone: Serum or plasma creatinine m easurement (mass/volume)on 03-19-2022 Creatinine [Mass/Vol] 0.72 mg/dL 0.55-1.02 [facility] [facility] Work Phone: Comment on above: The validity of the calculated GFR & GFRAA in patients over 70 years has not been determined. Clinical correlation is essential. Serum or plasma urea nitroge n measurement (mass/volume)on 03-19-2022 Urea nitrogen [Mass/Vol] 19 mg/dL 7-18 [facility] Work Phone: Thin prep Papanicolaou smear with manual screeningon 03-19-2022 Thin prep Papanicolaou smear with manual screening 19 U/L 15-37 [facility] Work Phone: Thin prep Papanicolaou smear with manual screening 6 5-15 [facility] Work Phone: Absolute lymphocyte counton 01-13-2022 Lymphocytes Auto (Unsp spec) [#/Vol] 2.14 10*3/uL 0.83-4.51 [facility] Work Phone: Basophil percentageon 2021 Basophils/100 WBC (Bld) 0.3 % 0-1 [facility] Work Phone: Bilirubin [Mass/Vol] 0.50 mg/dL 0.20-1.00 [facility] Work Phone: Comment on above: For patients on eltr ombopag therapy, use of Dimension [place] TBIL is not recommended. Chloride [Moles/Vol] 104 mmol/L 98-107 [facility]: Cholesterol [Mass/Vol] 175 mg/dL <200 [facility] Work Phone: Comment on above: <200 mg/dL Desirable 200-240 mg/dL Borderline >240 mg/dL High Risk Eosinophils/100 WBC (Bld) 1.3 % 0-5 [facility] Work Phone: [phone] Glucose [Mass/Vol] 97 mg/dL 74-106 [facility] Work Phone: [phone] Neutrophils (Bld) [#/Vol] 4.1 10*3/uL 2.0-7.7 [facility] Work Phone: [phone] Neutrophils/100 WBC (Bld) 58.4 % 47-70 [facility] Work Phone: [phone] Potassium [Moles/Vol] 3.6 mmol/L 3.5-5.1 [facility] Work Phone: [phone] Protein [Mass/Vol] 7.4 g/dL 6.4-8.2 [facility] Work Phone: [phone] Sodium [Moles/Vol] 141 mmol/L 136-145 [facility] Work Phone: [phone] Triglyceride [Mass/Vol] 105 mg/dL <199 [facility] Work Phone: [phone] Comment on above: The drugs N-Acetylcy steine and Metamizole may falsely depress this assay.Serum Triglycerides Reference Interval Normal <150 mg/dL Borderline high 150 - 199 mg/dL High 200 - 499 mg/dL Very High > or = 500 mg/dL WBC (Bld) [#/Vol] 7.0 10*3/uL 4.4-11.0 [facility] Work Phone: Blood erythrocytes count (nu mber/volume)on 01-13-2022 RBC (Bld) [#/Vol] 5.12 10*6/uL 4.2-5.4 [facility] Work Phone: Blood hemoglobin measurement (mass/volume)on 01-13-2022 Hemoglobin (Bld) [Mass/Vol] 14.5 g/dL 12.0-15.0 [facility] Work Phone: Blood lymphocytes/100 leukoc yteson 01-13-2022 Lymphocytes/100 WBC (Bld) 30.8 % 19-41 [facility] Work Phone: Blood monocytes/100 leukocyt eson 01-13-2022 Monocytes/100 WBC (Bld) 8.6 % 0-10 [facility] Work Phone: Blood platelet mean volumeon 01-13-2022 Platelet mean volume (Bld) [Entitic vol] 11.3 fL 6.2-12.0 [facility] Work Phone: Determination of erythrocyte mean corpuscular volume (MCV)on 01-13-2022 MCV (RBC) [Entitic vol] 88.1 fL 81-99 [facility] Work Phone: Hematocrit Auto (Bld) [Volum e fraction]on 01-13-2022 Hematocrit (Bld) [Volume fraction] 45.1 % 37-47 [facility] Work Phone: Laboratory - Chemistry and C hemistry - challengeon 01-13-2022 ALP [Catalytic activity/Vol] 76 U/L 45-117 [facility] Work Phone: ALT [Catalytic activity/Vol] 27 U/L 13-56 [facility] Work Phone: CO2 [Moles/Vol] 31.0 mmol/L 21.0-32.0 [facility] Work Phone: Globulin (S) [Mass/Vol] 3.8 g/dL 2.2-4.2 [facility] Work Phone: Urea nitrogen/Creatinine [Mass ratio] 29.6 mg/mg 10-20 [facility] Work Phone: Laboratory - Hematology and Cell countson 01-13-2022 Erythrocyte distribution width (RBC) [Entitic vol] 40.4 fL 35.1-43.9 [facility] Work Phone: Erythrocyte distribution width (RBC) [Ratio] 12.4 % 11.6-14.6 [facility] Work Phone: Immature granulocytes/100 WBC (Bld) 0.600 % 0.0-0.9 [facility] Work Phone: Comment on above: IG% - Immature Granu locytes (promyelocytes, myelocytes and metamyelocytes) > 1% indicates that a LEFT SHIFT is Present. MCH (RBC) [Entitic mass] 28.3 pg 27.0-32.0 [facility] Work Phone: Nucleated RBC/100 WBC (Bld) [Ratio] 0 % 0-5 [facility] Work Phone: MCHC Auto (RBC) [Mass/Vol]on 01-13-2022 MCHC (RBC) [Mass/Vol] 32.2 g/dL 32-36 [facility] Work Phone: No Panel Informationon 01-13 Estimated GFR (MDRD) Amer 91 mL/min >60 [facility] Work Phone: Comment on above: GFR Calc Estimated GFR (MDRD) Non-Af Amer 75 mL/min >60 [facility] Work Phone: Comment on above: Non- GFR Calc Platelets bldon 01-13-2022 Platelets (Bld) [#/Vol] 214 10*3/uL 150-450 [facility] Work Phone: Serum or plasma albumin magno urement (mass/volume)on 01-13-2022 Albumin [Mass/Vol] 3.6 g/dL 3.2-5.0 [facility] Work Phone: Serum or plasma albumin/glob ulin mass ratioon 01-13-2022 Albumin/Globulin [Mass ratio] 0.9 {ratio} 0.9-2.4 [facility] Work Phone: Serum or plasma calcium magno urement (mass/volume)on 01-13-2022 Calcium [Mass/Vol] 10.5 mg/dL 8.5-10.1 [facility] Work Phone: Serum or plasma cholesterol in HDL measurement (mass/volume)on 01-13-2022 Cholesterol in HDL [Mass/Vol] 55 mg/dL >40 [facility] Work Phone: Comment on above: The drugs N-Acetylcy steine and Metamizole may falsely depress this assay. Reference Range HDL <40 mg/dL Low HDL Cholesterol HDL >or= 60 mg/dL High HDL Cholesterol Serum or plasma cholesterol in VLDL measurement (mass/volume)on 01-13-2022 Cholesterol in VLDL [Mass/Vol] 21 mg/dL 5-40 [facility] Work Phone: Serum or plasma creatinine m easurement (mass/volume)on 01-13-2022 Creatinine [Mass/Vol] 0.81 mg/dL 0.55-1.02 [facility] Work Phone: Comment on above: The validity of the calculated GFR & GFRAA in patients over 70 years has not been determined. Clinical correlation is essential. Serum or plasma low density lipoprotein (LDL) cholesterol measurement (mass/volume)on 01-13-2022 Cholesterol in LDL [Mass/Vol] 99 mg/dL 0-130 [facility] Work Phone: Serum or plasma urea nitroge n measurement (mass/volume)on 01-13-2022 Urea nitrogen [Mass/Vol] 24 mg/dL 7-18 [facility] Work Phone: Thin prep Papanicolaou smear with manual screeningon 01-13-2022 Thin prep Papanicolaou smear with manual screening 16 U/L 15-37 [facility] Work Phone: Thin prep Papanicolaou smear with manual screening 6 5-15 [facility] Work Phone: Whole blood hemoglobin A1c/t otal hemoglobin ratio (mass fraction)on 01-13-2022 HbA1c (Bld) [Mass fraction] 5.6 % 3.8-5.6 [facility] Work Phone: Comment on above: Normal < 5.7 % Predi abetic 5.7 - 6.4 % Diabetic >or= 6.5 % Please note range changes. Basophil percentageon 2021 Basophil percentage 2.9 mg/dL 2.5-4.9 [facility] Work Phone: Laboratory - Chemistry and C hemistry - challengeon 10-14-2021 Free T4 [Mass/Vol] 0.96 ng/dL 0.76-1.46 [facility] Work Phone: Magnesium [Mass/Vol] 1.8 mg/dL 1.6-2.6 [facility] Work Phone: No Panel Informationon 10-14 Free Triiodothyronine (T3) pg/dL 3.0 pg/mL 2.18-3.98 [facility] Work Phone: Thyroid Stimulating Hormone (TSH) 0.28 uIU/mL 0.358-3.74 [facility] Work Phone: Laboratory - Chemistry and C hemistry - challengeon 10-09-2021 Free T4 [Mass/Vol] 0.94 ng/dL 0.76-1.46 [facility] Work Phone: No Panel Informationon 10-09 Free Triiodothyronine (T3) pg/dL 3.0 pg/mL 2.18-3.98 [facility] Work Phone: Thyroid Stimulating Hormone (TSH) 0.40 uIU/mL 0.358-3.74 [facility] Work Phone: Basophil percentageon 2021 Bilirubin [Mass/Vol] 0.60 mg/dL 0.20-1.00 [facility] Work Phone: Comment on above: For patients on eltr ombopag therapy, use of Dimension [place] TBIL is not recommended. Chloride [Moles/Vol] 102 mmol/L 98-[address] [facility] Work Phone: [phone] Glucose [Mass/Vol] 99 mg/dL 74-106 [facility] Work Phone: Potassium [Moles/Vol] 3.5 mmol/L 3.5-5.1 [facility] Work Phone: Protein [Mass/Vol] 7.3 g/dL 6.4-8.2 [facility] Work [facility]: [phone] Sodium [Moles/Vol] 139 mmol/L 136-145 [facility] Work Phone: [phone] Laboratory - Chemistry and C hemistry - challengeon 09-16-2021 ALP [Catalytic activity/Vol] 76 U/L 45-117 [facility] Work Phone: [phone] ALT [Catalytic activity/Vol] 33 U/L 13-56 [facility] Work Phone: [phone] CO2 [Moles/Vol] 34.0 mmol/L 21.0-32.0 [facility] Work Phone: [phone] Free T4 [Mass/Vol] 0.94 ng/dL 0.76-1.46 [facility] Work Phone: [phone] Globulin (S) [Mass/Vol] 3.7 g/dL 2.2-4.2 [facility] Work Phone: Urea nitrogen/Creatinine [Mass ratio] 23.1 mg/mg 10-20 [facility] Work Phone: [phone] Laboratory - Hematology and Cell countson 09-16-2021 HbA1c (Bld) [Mass fraction] 6.1 % 4.2-6.3 [facility] Work Phone: [phone] No Panel Informationon 09-16 Estimated GFR (MDRD) Amer 102 mL/min >60 [facility] Work Phone: Comment on above: GFR Calc Estimated GFR (MDRD) Non-Af Amer 85 mL/min >60 [facility] Work Phone: Comment on above: Non- GFR Calc Free Triiodothyronine (T3) pg/dL 2.9 pg/mL 2.18-3.98 [facility] Work Phone: Parathyroid Hormone (Intact) 59.9 pg/mL 18.4-80.1 [facility] Work Phone: Thyroid Stimulating Hormone (TSH) 0.82 uIU/mL 0.358-3.74 [facility] Work Phone: Vitamin D 25-Hydroxy 34.2 ng/mL [facility] Work Phone: Comment on above: Vitamin D 25(OH) Sta tus Range Deficiency <20 ng/mL (50nmol/L) Insufficiency 20 - 30 ng/mL (50 - 75 nmol/L) Sufficiency 30 - 100 ng/mL (75 - 250 nmol/L) Toxicity >100 ng/mL (>250 nmol/L) Serum or plasma albumin magno urement (mass/volume)on 09-16-2021 Albumin [Mass/Vol] 3.6 g/dL 3.2-5.0 [facility] Work Phone: Serum or plasma albumin/glob ulin mass ratioon 09-16-2021 Albumin/Globulin [Mass ratio] 1.0 {ratio} 0.9-2.4 [facility] Work Phone: Serum or plasma calcium magno urement (mass/volume)on 09-16-2021 Calcium [Mass/Vol] 10.0 mg/dL 8.5-10.1 [facility] Work Phone: Serum or plasma creatinine m easurement (mass/volume)on 09-16-2021 Creatinine [Mass/Vol] 0.74 mg/dL 0.55-1.02 [facility] Work Phone: Comment on above: The validity of the calculated GFR & GFRAA in patients over 70 years has not been determined. Clinical correlation is essential. Serum or plasma urea nitroge n measurement (mass/volume)on 09-16-2021 Urea nitrogen [Mass/Vol] 17 mg/dL 7-18 [facility] Work Phone: Thin prep Papanicolaou smear with manual screeningon 09-16-2021 Thin prep Papanicolaou smear with manual screening 20 U/L 15-37 [facility] Work Phone: Thin prep Papanicolaou smear with manual screening 3 5-15 [facility] Work Phone: Laboratory - Hematology and Cell countson 07-15-2021 HbA1c (Bld) [Mass fraction] 5.8 % [facility] Work Phone: Cervical or vagninal specime n microscopic examination by cytology stain (reported ason 07-03-2021 Cytology report Cyto stain Doc (Cvx/Vag) Comment [facility] Work Phone: Comment on above: The Pap smear is a s creening test designed to aid in thedetection of premalignant and malignant conditions of theuterine cervix. It is not a diagnostic procedure andshould not be used as the sole means of detecting cervicalcancer. Both false-positive and false-negative reports dooccur. Detection in cervical specim en of any of human papilloma virus (HPV) 16, 18, 31, 33,on 07-03-2021 HPV 16+18+31+33+35+39+45+51+ 52+56+58+59+66+68 DNA Probe+sig amp Ql (Cvx) Negative Negative [facility] Work Phone: Comment on above: This nucleic acid am plification test detects fourteen high-risk HPV types (16,18,31,33,35,39,45,51,52,56,58,59,66,68)without differentiation.Performed at: [address] [id number] Director: Lucy Lovett MD, Phone: [phone] at: =[address] [id number] Director: Lucy Lovett MD, Phone: [phone] Laboratory - Cytologyon 06-09 Coal Pulverizer Operator Cyto stain Nom (Cvx/Vag) [ID] Comment [facility] Work Phone: Comment on above: John Newell, Air Analysis Engineering Technician ([facility]) Laboratory - Miscellaneous t estson 07-03-2021 Service comment (Unsp spec) [Interp] Comment [facility] Work Phone: Comment on above: This liquid based Th inPrep(R) pap test was screened withthe use of an image guided system. Service comment (Unsp spec) [Interp] . [facility] Work Phone: No Panel Informationon 07-03 Pap Smear QC Review Comment [facility] Work Phone: Comment on above: Paul Harp totechnologist ([facility]) Pathology report final diagnosis Narrative Comment [facility] Work Phone: Comment on above: NEGATIVE FOR INTRAEP ITHELIAL LESION OR MALIGNANCY.CELLULAR CHANGES ASSOCIATED WITH ATROPHY ARE PRESENT.THIS SPECIMEN WAS RESCREENED PART OF OUR WET PAN OPERATOR PROGRAM. Basic Metabolic Panlon 09-10 Anion gap 13 mmol/L Normal 9-18 [facility] Comment on above: Performed By: #### B MP ####[address] [phone] Calcium 10.0 mg/dL Normal 8.5-10.2 [facility] Comment on above: Performed By: #### B MP ####[id number] [place], [place] [phone] Chloride 100 mmol/L Normal 97-105 [facility] Comment on above: Performed By: #### B MP ####[facility] [place], [place] [phone] CO2 30 mmol/L Normal 22-30 [facility] Comment on above: Performed By: #### B MP ####[facility] [place], [place] [phone] Creatinine 0.70 mg/dL Normal 0.58-0.96 [facility] Comment on above: Performed By: #### B MP ####[facility] [place], [place] [phone] eGFR (non-black) mL/min/{1.73_m2} Normal Cl [facility] Comment on above: Performed By: #### B MP ####[facility] [place], [place] [phone] Result Comment: eGFR (Estimated GFR) Units of measure: mL/min/1.73 meters squaredeGFR is derived from the reexpressed MDRD Study equation using the following parameters: serum creatinine, age, gender and race. The creatinine assay has been calibrated to be traceable to IDMS.An eGFR <60 mL/min/1.73m2 for >3 months is consistent with chronic kidney disease. Refer to KDOQI guidelines for clinical interpretation.In patients with unstable renal function, e.g. those with acute kidney injury, the eGFR may not accurately reflect actual GFR. Glucose mass conc 106 mg/dL High 74-[address] [facility] Comment on above: Result Comment: The [place] [employer] Association (ADA) provides guidance for cutoff values for fasting glucose and random glucose. The ADA defines fasting as no caloric intake for at least 8 hours. Fasting plasma glucose results between 100 to 125 mg/dL indicate increased risk for diabetes (prediabetes).Fasting plasma glucose results greater than or equal to 126 mg/dL meet the criteria for diagnosis of diabetes. In the absence of unequivocal hyperglycemia, results should be confirmed by repeat testing. In a patient with classic symptoms of hyperglycemia or hyperglycemic crisis, random plasma glucose results greater than or equal to 200 mg/dL meet the criteria for diagnosis of diabetes.Reference: Standards of Medical Care in Diabetes 2016, [place] [employer]. Diabetes Care. 2016.39(Suppl 1). Performed By: #### B MP ####[facility] [place], [place] [phone] Potassium molar conc 3.7 mmol/L Normal 3.7-5.1 [facility] Comment on above: Performed By: #### B MP ####[facility] [address] [place], [place] [phone] Sodium 143 mmol/L Normal 136-144 [facility] Comment on above: Performed By: #### B MP ####[facility] [place], [place] [phone] Urea nitrogen 17 mg/dL Normal 7-21 [facility] Comment on above: Performed By: #### B MP ####[facility] [address] [place], [place] [phone] Vital Signs Date Time Vital Sign Value Performing Clinician Dre lopez 10-27-2024 09:02-0400 Body temperature 98.6 [degF] Dr. Stephanie Montalvo MD Work Phone: [phone] [address] 10-27-2024 09:02-0400 Body weight 63.[address] Stephanie Montalvo MD Work Phone: 1(539)666-883116 [place] [address] 10-27-2024 09:02-0400 Diastolic blood pressure 91 mm[Hg] Dr. Stephanie Montalvo MD Work Phone: 8(547)968-769116 [place] [address] 10-27-2024 09:02-0400 Heart rate 72 /min Dr. Stephanie Montalvo MD Work Phone: 9(940)791-888016 [place] [address] 10-27-2024 09:02-0400 Respiratory rate 16 /min Dr. Stephanie Montalvo MD Work Phone: 3(349)265-875316 [place] [address] 10-27-2024 09:02-0400 SaO2% (BldA) [Mass fraction] 98 % Dr. Stephanie Montalvo MD Work Phone: 4(356)[phone] [place] [address] 10-27-2024 09:02-0400 Systolic blood pressure 128 mm[Hg] Dr. Stephanie Montalvo MD Work Phone: 6(033)453-375516 [place] [address] 09-14-2024 10:30-0400 Body height 160.[address] Stephanie Montalvo MD Work Phone: 4(663)601-993287 [place] [address] 09-14-2024 10:30-0400 Body mass index (BMI) [Ratio] 24.3 kg/m2 Dr. Stephanie Montalvo MD Work Phone: 2(229)384-254587 [place] [address] 09-14-2024 10:30-0400 Body temperature 96.8 [degF] Dr. Stephanie Montalvo MD Work Phone: 0(451)570-434687 [place] [address] 09-14-2024 10:30-0400 Body weight 62.[address] Stephanie Montalvo MD Work Phone: 8(663)996-633687 [place] [address] 09-14-2024 10:30-0400 Diastolic blood pressure 84 mm[Hg] Dr. Stephanie Montalvo MD Work Phone: 3(318)151-064487 [place] [address] 09-14-2024 10:30-0400 Heart rate 74 /min Dr. Stephanie Montalvo MD Work Phone: 7(667)533-126187 [place] [address] 09-14-2024 10:30-0400 Respiratory rate 14 /min Dr. Stephanie Montalvo MD Work Phone: 4(271)983-047187 [place] [address] 09-14-2024 10:30-0400 SaO2% (BldA) [Mass fraction] 99 % Dr. Stephanie Montalvo MD Work Phone: 5(844)349-362887 [place] [address] 09-14-2024 10:30-0400 Systolic blood pressure 120 mm[Hg] Dr. Stephanie Montalvo MD Work Phone: 3(646)270-960887 [place] [address] 07-19-2024 09:24-0500 Body mass index (BMI) [Ratio] 24.5 kg/m2 Dr. Stephanie Montalvo MD Work Phone: 2(294)783-799587 [place] [address] 07-19-2024 09:24-0500 Body weight 62.[address] Stephanie Montalvo MD Work Phone: 3(884)106-124187 [place] [address] 07-19-2024 09:24-0500 Diastolic blood pressure 82 mm[Hg] Dr. Stephanie Montalvo MD Work Phone: 7(560)396-197387 [place] [address] 07-19-2024 09:24-0500 Systolic blood pressure 112 mm[Hg] Dr. Stephanie Montalvo MD Work Phone: [facility] 09-01-2023 10:36-0400 Body height 160.[address] Dior Sanchez Work Phone: [facility] 09-01-2023 10:11-0400 Body mass index (BMI) [Ratio] 24.6 kg/m2 Dr. Dior Sanchez Work Phone: [facility] 09-01-2023 10:11-0400 Body weight 63.[address] Dior Sanchez Work Phone: [facility] 09-01-2023 10:11-0400 Diastolic blood pressure 78 mm[Hg] Dr. Dior Sanchez Work Phone: [facility] 09-01-2023 10:11-0400 Systolic blood pressure 122 mm[Hg] Dr. Dior Sanchez Work Phone: [facility] 07-15-2023 09:48-0500 Body mass index (BMI) [Ratio] 24.6 kg/m2 Dr. Dior Sanchez Work Phone: [facility] 07-15-2023 09:48-0500 Body weight 63.[address] Dior Sanchez Work Phone: [facility] 07-15-2023 09:48-0500 Diastolic blood pressure 80 mm[Hg] Dr. Dior Sanchez Work Phone: [facility] 07-15-2023 09:48-0500 Systolic blood pressure 124 mm[Hg] Dr. Dior Sanchez Work Phone: [facility] 06-12-2023 10:30-0500 Body mass index (BMI) [Ratio] 24.8 kg/m2 Dr. Dior Sanchez Work Phone: [facility] 06-12-2023 10:30-0500 Body temperature 97.5 [degF] Dr. Dior Sanchez Work Phone: [facility] 06-12-2023 10:30-0500 Body weight 63.[address] Dior Sanchez Work Phone: [facility] 06-12-2023 10:30-0500 Diastolic blood pressure 80 mm[Hg] Dr. Dior Sanchez Work Phone: [facility] 06-12-2023 10:30-0500 Heart rate 76 /min Dr. Dior Sanchez Work Phone: [facility] 06-12-2023 10:30-0500 Respiratory rate 16 /min Dr. Dior Sanchez Work Phone: [facility] 06-12-2023 10:30-0500 SaO2% (BldA) [Mass fraction] 99 % Dr. Dior Sanchez Work Phone: [facility] 06-12-2023 10:30-0500 Systolic blood pressure 122 mm[Hg] Dr. Dior Sanchez Work Phone: [facility] 04-15-2023 11:27-0500 Body height 160.[address] Dior Sanchez Work Phone: [facility] 04-15-2023 11:27-0500 Body mass index (BMI) [Ratio] 24.7 kg/m2 Dr. Dior Sanchez Work Phone: [facility] 04-15-2023 11:27-0500 Body temperature 99.2 [degF] Dr. Dior Sanchez Work Phone: [facility] 04-15-2023 11:27-0500 Body weight 63.[address] Dior Sanchez Work Phone: [facility] 04-15-2023 11:27-0500 Diastolic blood pressure 82 mm[Hg] Dr. Dior Sanchez Work Phone: [facility] 04-15-2023 11:27-0500 Heart rate 88 /min Dr. Dior Sanchez Work Phone: [facility] 04-15-2023 11:27-0500 Respiratory rate 18 /min Dr. Dior Sanchez Work Phone: [facility] 04-15-2023 11:27-0500 SaO2% (BldA) [Mass fraction] 99 % Dr. Dior Sanchez Work Phone: [facility] 04-15-2023 11:27-0500 Systolic blood pressure 122 mm[Hg] Dr. Dior Sanchez Work Phone: [facility] 04-09-2023 08:41-0400 Body height 160.[address] Dior Sanchez Work Phone: [facility] 04-09-2023 08:41-0400 Body mass index (BMI) [Ratio] 24.8 kg/m2 Dr. Dior Sanchez Work Phone: [facility] 04-09-2023 08:41-0400 Body temperature 97.9 [degF] Dr. Dior Sanchez Work Phone: [facility] 04-09-2023 08:41-0400 Body weight 63.[address] Dior Sanchez Work Phone: [facility] 04-09-2023 08:41-0400 Diastolic blood pressure 87 mm[Hg] Dr. Dior Sanchez Work Phone: [facility] 04-09-2023 08:41-0400 Heart rate 76 /min Dr. Dior Sanchez Work Phone: [facility] 04-09-2023 08:41-0400 Respiratory rate 18 /min Dr. Dior Sanchez Work Phone: [facility] 04-09-2023 08:41-0400 SaO2% (BldA) [Mass fraction] 97 % Dr. Dior Sanchez Work Phone: [facility] 04-09-2023 08:41-0400 Systolic blood pressure 136 mm[Hg] Dr. Dior Sanchez Work Phone: [facility] 03-06-2023 08:39-0400 Body height 160.[address] Dior Sanchez Work Phone: [facility] 03-06-2023 08:39-0400 Body mass index (BMI) [Ratio] 24.5 kg/m2 Dr. Dior Sanchez Work Phone: [facility] 03-06-2023 08:39-0400 Body temperature 96.7 [degF] Dr. Dior Sanchez Work Phone: [facility] 03-06-2023 08:39-0400 Body weight 62.[address] Dior Sanchez Work Phone: [facility] 03-06-2023 08:39-0400 Diastolic blood pressure 78 mm[Hg] Dr. Dior Sanchez Work Phone: [facility] 03-06-2023 08:39-0400 Heart rate 90 /min Dr. Dior Sanchez Work Phone: [facility] 03-06-2023 08:39-0400 Respiratory rate 18 /min Dr. Dior Sanchez Work Phone: [facility] 03-06-2023 08:39-0400 SaO2% (BldA) [Mass fraction] 98 % Dr. Dior Sanchez Work Phone: [facility] 03-06-2023 08:39-0400 Systolic blood pressure 128 mm[Hg] Dr. Dior Sanchez Work Phone: [facility] 11-28-2022 11:04-0400 Body height 160.[address] Dior Sanchez Work Phone: [facility] 11-28-2022 11:04-0400 Body mass index (BMI) [Ratio] 24.4 kg/m2 Dr. Dior Sanchez Work Phone: [facility] 11-28-2022 11:04-0400 Body temperature 98 [degF] Dr. Dior Sanchez Work Phone: [facility] 11-28-2022 11:04-0400 Body weight 62.[address] Dior Sanchez Work Phone: [facility] 11-28-2022 11:04-0400 Diastolic blood pressure 86 mm[Hg] Dr. Dior Sanchez Work Phone: [facility] 11-28-2022 11:04-0400 Heart rate 72 /min Dr. Dior Sanchez Work Phone: [facility] 11-28-2022 11:04-0400 Respiratory rate 16 /min Dr. Dior Sanchez Work Phone: [facility] 11-28-2022 11:04-0400 SaO2% (BldA) [Mass fraction] 96 % Dr. Dior Sanchez Work Phone: [facility] 11-28-2022 11:04-0400 Systolic blood pressure 134 mm[Hg] Dr. Dior Sanchez Work Phone: [facility] 11-11-2022 17:05-0400 Diastolic blood pressure 74 mm[Hg] Dr. Dior Sanchez Work Phone: [facility] 11-11-2022 17:05-0400 Heart rate 78 /min Dr. Dior Sanchez Work Phone: [facility] 11-11-2022 17:05-0400 Respiratory rate 14 /min Dr. Dior Sanchez Work Phone: [facility] 11-11-2022 17:05-0400 Systolic blood pressure 130 mm[Hg] Dr. Dior Sanchez Work Phone: [facility] 10-17-2022 09:53-0400 Diastolic blood pressure 79 mm[Hg] Dr. Dior Sanchez Work Phone: [facility] 10-17-2022 09:53-0400 Heart rate 81 /min Dr. Dior Sanchez Work Phone: [facility] 10-17-2022 09:53-0400 Respiratory rate 16 /min Dr. Dior Sanchez Work Phone: [facility] 10-17-2022 09:53-0400 Systolic blood pressure 124 mm[Hg] Dr. Dior Sanchez Work Phone: [facility] 10-02-2022 13:33-0400 Body mass index (BMI) [Ratio] 22.8 kg/m2 Dr. Dior Sanchez Work Phone: [facility] 10-02-2022 13:33-0400 Body temperature 98.1 [degF] Dr. Dior Sanchez Work Phone: [facility] 10-02-2022 13:33-0400 Body weight 62.[address] Dior Sanchez Work Phone: [facility] 10-02-2022 13:33-0400 Diastolic blood pressure 76 mm[Hg] Dr. Dior Sanchez Work Phone: [facility] 10-02-2022 13:33-0400 Heart rate 81 /min Dr. Dior Sanchez Work Phone: [facility] 10-02-2022 13:33-0400 Respiratory rate 14 /min Dr. Dior Sanchez Work Phone: [facility] 10-02-2022 13:33-0400 SaO2% (BldA) [Mass fraction] 97 % Dr. Dior Sanchez Work Phone: [facility] 10-02-2022 13:33-0400 Systolic blood pressure 104 mm[Hg] Dr. Dior Sanchez Work Phone: [facility] 09-16-2022 10:08-0400 Body mass index (BMI) [Ratio] 23.1 kg/m2 Dr. Dior Sanchez Work Phone: [facility] 09-16-2022 10:08-0400 Body temperature 98.6 [degF] Dr. Dior Sanchez Work Phone: [facility] 09-16-2022 10:08-0400 Body weight 63.[address] Dior Sanchez Work Phone: [facility] 09-16-2022 10:08-0400 Diastolic blood pressure 85 mm[Hg] Dr. Dior Sanchez Work Phone: [facility] 09-16-2022 10:08-0400 Heart rate 71 /min Dr. Dior Sanchez Work Phone: [facility] 09-16-2022 10:08-0400 Respiratory rate 18 /min Dr. Dior Sanchez Work Phone: [facility] 09-16-2022 10:08-0400 SaO2% (BldA) [Mass fraction] 97 % Dr. Dior Sanchez Work Phone: [facility] 09-16-2022 10:08-0400 Systolic blood pressure 127 mm[Hg] Dr. Dior Sanchez Work Phone: [facility] 09-03-2022 09:57-0400 Body mass index (BMI) [Ratio] 22.9 kg/m2 Dr. Dior Sanchez Work Phone: [facility] 09-03-2022 09:57-0400 Body temperature 98 [degF] Dr. Dior Sanchez Work Phone: [facility] 09-03-2022 09:57-0400 Body weight 62.[address] Dior Sanchez Work Phone: [facility] 09-03-2022 09:57-0400 Diastolic blood pressure 78 mm[Hg] Dr. Dior Sanchez Work Phone: [facility] 09-03-2022 09:57-0400 Heart rate 77 /min Dr. Dior Sanchez Work Phone: [facility] 09-03-2022 09:57-0400 Respiratory rate 12 /min Dr. Dior Sanchez Work Phone: [facility] 09-03-2022 09:57-0400 SaO2% (BldA) [Mass fraction] 99 % Dr. Dior Sanchez Work Phone: [facility] 09-03-2022 09:57-0400 Systolic blood pressure 126 mm[Hg] Dr. Dior Sanchez Work Phone: [facility] 03-19-2022 09:59-0400 Body height 160.[address] Dior Sanchez Work Phone: [facility] Work Phone: 03-19-2022 09:59-0400 Body mass index (BMI) [Ratio] 25.2 kg/m2 Dr. Dior Sanchez Work Phone: [facility] Work Phone: 03-19-2022 09:59-0400 Body temperature 97.2 [degF] Dr. Dior Sanchez Work Phone: [facility] Work Phone: 03-19-2022 09:59-0400 Body weight 64.[address] Dior Sanchez Work Phone: [facility] Work Phone: 03-19-2022 09:59-0400 Diastolic blood pressure 82 mm[Hg] Dr. Dior Sanchez Work Phone: [facility] Work Phone: 03-19-2022 09:59-0400 Heart rate 76 /min Dr. iDor Sanchez Work Phone: [facility] Work Phone: 03-19-2022 09:59-0400 Respiratory rate 18 /min Dr. Dior Sanchez Work Phone: [facility] Work Phone: 03-19-2022 09:59-0400 SaO2% (BldA) [Mass fraction] 94 % Dr. Dior Sanchez Work Phone: [facility] Work Phone: 03-19-2022 09:59-0400 Systolic blood pressure 124 mm[Hg] Dr. Dior Sanchez Work Phone: [facility] Work Phone: 03-13-2022 10:19-0400 Body height 160.[address] Dior Sanchez Work Phone: [facility] Work Phone: 03-03-2022 09:17-0400 Body mass index (BMI) [Ratio] 25.4 kg/m2 Dr. Dior Sanchez Work Phone: [facility] Work Phone: 03-03-2022 09:17-0400 Body temperature 98 [degF] Dr. Dior Sanchez Work Phone: [facility] Work Phone: 03-03-2022 09:17-0400 Body weight 65.[address] Dior Sanchez Work Phone: [facility] Work Phone: 03-03-2022 09:17-0400 Diastolic blood pressure 68 mm[Hg] Dr. Dior Sanchez Work Phone: [facility] Work Phone: 03-03-2022 09:17-0400 Heart rate 80 /min Dr. Dior Sanchez Work Phone: [facility] Work Phone: 03-03-2022 09:17-0400 Respiratory rate 16 /min Dr. Dior Sanchez Work Phone: [facility] Work Phone: 03-03-2022 09:17-0400 SaO2% (BldA) [Mass fraction] 96 % Dr. Dior Sanchez Work Phone: [facility] Work Phone: 03-03-2022 09:17-0400 Systolic blood pressure 106 mm[Hg] Dr. Dior Sanchez Work Phone: [facility] Work Phone: 01-13-2022 10:15-0400 Body height 160.[address] Dior Sanchez Work Phone: [facility] Work Phone: 01-13-2022 10:15-0400 Body mass index (BMI) [Ratio] 24.7 kg/m2 Dr. Dior Sanchez Work Phone: [facility] Work Phone: 01-13-2022 10:15-0400 Body temperature 97.5 [degF] Dr. Dior Sanchez Work Phone: [facility] Work Phone: 01-13-2022 10:15-0400 Body weight 63.[address] Dior Sanchez Work Phone: [facility] Work Phone: 01-13-2022 10:15-0400 Diastolic blood pressure 62 mm[Hg] Dr. Dior Sanchez Work Phone: [facility] Work Phone: 01-13-2022 10:15-0400 Heart rate 90 /min Dr. Dior Sanchez Work Phone: [facility] Work Phone: 01-13-2022 10:15-0400 Respiratory rate 14 /min Dr. Dior Sanchez Work Phone: [facility] Work Phone: 01-13-2022 10:15-0400 SaO2% (BldA) [Mass fraction] 98 % Dr. Dior Sanchez Work Phone: [facility] Work Phone: 01-13-2022 10:15-0400 Systolic blood pressure 108 mm[Hg] Dr. Dior Sanchez Work Phone: [facility] Work Phone: 01-03-2022 13:07-0400 Body temperature 98.3 [degF] Dr. Dior Sanchez Work Phone: [facility] Work Phone: 01-03-2022 13:07-0400 Diastolic blood pressure 73 mm[Hg] Dr. Dior Sanchez Work Phone: [facility] Work Phone: 01-03-2022 13:07-0400 Heart rate 78 /min Dr. Dior Sanchez Work Phone: [facility] Work Phone: 01-03-2022 13:07-0400 Respiratory rate 16 /min Dr. Dior Sanchez Work Phone: [facility] Work Phone: 01-03-2022 13:07-0400 SaO2% (BldA) [Mass fraction] 100 % Dr. Dior Sanchez Work Phone: [facility] Work Phone: 01-03-2022 13:07-0400 Systolic blood pressure 111 mm[Hg] Dr. Dior Sanchez Work Phone: [facility] Work Phone: 01-03-2022 12:22-0400 Body height 160.[address] Dior Sanchez Work Phone: [facility] Work Phone: 01-03-2022 12:22-0400 Body mass index (BMI) [Ratio] 24.7 kg/m2 Dr. Dior Sanchez Work Phone: [facility] Work Phone: 01-03-2022 12:22-0400 Body weight 63.[address] Dior Sanchez Work Phone: [facility] Work Phone: 09-16-2021 10:16-0400 Body mass index (BMI) [Ratio] 25.3 kg/m2 Dr. Dior Sanchez Work Phone: [facility] Work Phone: 09-16-2021 10:16-0400 Body temperature 98.4 [degF] Dr. Dior Sanchez Work Phone: [facility] Work Phone: 09-16-2021 10:16-0400 Body weight 64.[address] Dior Sanchez Work Phone: [facility] Work Phone: 09-16-2021 10:16-0400 Diastolic blood pressure 78 mm[Hg] Dr. Dior Sanchez Work Phone: [facility] Work Phone: 09-16-2021 10:16-0400 Heart rate 75 /min Dr. Dior Sanchez Work Phone: [facility] Work Phone: 09-16-2021 10:16-0400 Respiratory rate 16 /min Dr. Dior Sanchez Work Phone: [facility] Work Phone: 09-16-2021 10:16-0400 SaO2% (BldA) [Mass fraction] 100 % Dr. Dior Sanchez Work Phone: [facility] Work Phone: 09-16-2021 10:16-0400 Systolic blood pressure 132 mm[Hg] Dr. Dior Sanchez Work Phone: [facility] Work Phone: 09-16-2021 10:16-0400 Body height 160.[address] Dior Sanchez Work Phone: [facility] Work Phone: 09-16-2021 10:16-0400 Body mass index (BMI) [Ratio] 25.3 kg/m2 Dr. Dior Sanchez Work Phone: [facility] Work Phone: 09-16-2021 10:16-0400 Body temperature 98.4 [degF] Dr. Dior Sanchez Work Phone: [facility] Work Phone: 09-16-2021 10:16-0400 Body weight 64.[address] Dior Sanchez Work Phone: [facility] Work Phone: 09-16-2021 10:16-0400 Diastolic blood pressure 78 mm[Hg] Dr. Dior Sanchez Work Phone: [facility] Work Phone: 09-16-2021 10:16-0400 Heart rate 75 /min Dr. Dior Sanchez Work Phone: [facility] Work Phone: 09-16-2021 10:16-0400 Respiratory rate 16 /min Dr. Dior Sanchez Work Phone: [facility] Work Phone: 09-16-2021 10:16-0400 SaO2% (BldA) [Mass fraction] 100 % Dr. Dior Sanchez Work Phone: [facility] Work Phone: 09-16-2021 10:16-0400 Systolic blood pressure 132 mm[Hg] Dr. Dior Sanchez Work Phone: [facility] Work Phone: 07-15-2021 08:36-0500 Body mass index (BMI) [Ratio] 25.3 kg/m2 Dr. Dior Sanchez Work Phone: [facility] Work Phone: 07-15-2021 08:36-0500 Body temperature 96.7 [degF] Dr. Dior Sanchez Work Phone: [facility] Work Phone: 07-15-2021 08:36-0500 Body weight 64.[address] Dior Sanchez Work Phone: [facility] Work Phone: 07-15-2021 08:36-0500 Diastolic blood pressure 78 mm[Hg] Dr. Dior Sanchez Work Phone: [facility] Work Phone: 07-15-2021 08:36-0500 Heart rate 73 /min Dr. Dior Sanchez Work Phone: [facility] Work Phone: 07-15-2021 08:36-0500 Respiratory rate 16 /min Dr. Dior Sanchez Work Phone: [facility] Work Phone: 07-15-2021 08:36-0500 SaO2% (BldA) [Mass fraction] 99 % Dr. Dior Sanchez Work Phone: [facility] Work Phone: 07-15-2021 08:36-0500 Systolic blood pressure 120 mm[Hg] Dr. Dior Sanchez Work Phone: [facility] Work Phone: 07-03-2021 11:58-0500 Body mass index (BMI) [Ratio] 25.2 kg/m2 Dr. Dior Sanchez Work Phone: [facility] Work Phone: 07-03-2021 11:58-0500 Body weight 64.[address] Dior Sanchez Work Phone: [facility] Work Phone: 07-03-2021 11:58-0500 Diastolic blood pressure 72 mm[Hg] Dr. Dior Sanchez Work Phone: [facility] Work Phone: 07-03-2021 11:58-0500 Systolic blood pressure 126 mm[Hg] Dr. Dior Sanchez Work Phone: [facility] Work Phone: Encounters Encounter Date Encounter Type Care Provider Facility Start: 11-14-[address] Dior Sanchez MD -Labor[facility] Start: 11-10-2024 Non-patient / Non-visit Dr. Cristian prasad MD -[facility] Start: 11-10-2024 End: 11-10-2024 Patient encounter procedure Brandie ADAMS -[facility] Work Phone: Start: 11-10-2024 End: 11-10-2024 ambulatory Cristian Worthingotn Facility:[facility] Start: 10-27-2024 End: 10-27-2024 Patient encounter procedure Brandie ADAMS -[facility] Work Phone: Start: 10-27-2024 End: 10-27-2024 ambulatory Efewongbe Oleghe Facility:[facility] Start: 09-14-2024 End: 09-14-[address] Dior Sanchez MD [facility] Work Phone: Start: 09-14-2024 End: 09-14-2024 ambulatory Efewongbe Shakeellluviae Facility:[facility] Start: 07-19-2024 Encounter for gynecological examination (general) (routine) [facility]: 07-19-[facility]24 End: 07-19-2024 Patient encounter procedure Mariella Vega YIELD CLERK-C -[facility] Work Phone: Start: 07-19-2024 End: 07-19-2024 Patient encounter status Mariella Vega YIELD CLERK-C [facility] Start: 07-19-2024 End: 07-19-2024 ambulatory Efewongbe Arinae Facility:[facility] Start: 07-19-2024 End: 07-19-2024 ambulatory Mariella Ladson Facility:[facility] Start: 05-04-2024 End: 05-04-2024 ambulatory Efewongbe Oleghe Facility:[facility] Start: 03-25-2024 End: 03-25-2024 ambulatory Efewongbe Oleghe Facility:[facility] Start: 03-25-2024 End: 03-25-2024 [facility] Start: 03-18-2024 End: 03-18-2024 ambulatory Efewongbe Oleghe Facility:[facility] Start: 03-18-2024 End: 03-18-2024 [facility] Start: 03-08-2024 End: 03-08-2024 [facility] Start: 09-07-2023 End: 09-07-[address] Dior Sanchez Work Phone: [facility] Work Phone: Start: 09-07-2023 End: 09-07-[address] Dior Sanchez Work Phone: [facility], [facility] Work Phone: Start: 09-01-2023 End: 09-01-[address] Dior Sanchez Work Phone: [facility] Work Phone: Start: 09-01-2023 End: 09-01-[address] Dior Sanchez Work Phone: [facility]Laboratory, Specimen Work Phone: Start: 09-01-2023 End: 09-01-[address] Dior Sanchez Work Phone: [facility] Work Phone: Start: 07-15-2023 End: 07-15-[address] Dior Sanchez Work Phone: [facility] Work Phone: Start: 07-08-2023 End: 07-08-[address] Dior Sanchez Work Phone: [facility] Work Phone: Start: 07-08-2023 End: 07-08-[address] Dior Sanchez Work Phone: [facility] Work Phone: Start: 07-08-[address] Melania Sanchez Work Phone: [facility] Work Phone: Start: 07-06-2023 End: 07-06-[address] Dior Sanchez Work Phone: [facility] Work Phone: Start: 06-12-2023 End: 06-12-[address] Dior Sanchez Work Phone: [facility] Work Phone: Start: 04-15-2023 End: 04-15-[address] Dior Sanchez Work Phone: [facility] Work Phone: Start: 04-15-2023 End: 04-15-[address] Dior Sanchez Work Phone: [facility] Work Phone: Start: 04-09-2023 End: 04-09-[address] Dior Sanchez Work Phone: [facility] Work Phone: Start: 04-09-2023 End: 04-09-[address] Dior Sanchez Work Phone: [facility] Work Phone: Start: 04-09-2023 End: 04-09-[address] Dior Sanchez Work Phone: [facility] Work Phone: Start: 03-16-2023 End: 03-16-[address] Dior Sanchez Work Phone: [facility] Work Phone: Start: 03-16-2023 End: 03-16-[address] Dior Sanchez Work Phone: [facility], [facility] Work Phone: Start: 03-06-2023 End: 03-06-[address] Dior Sanchez Work Phone: [facility] Work Phone: Start: 11-28-2022 End: 11-28-[address] Dior Sanchez Work Phone: [facility] Work Phone: Start: 11-28-2022 End: 11-28-[address] [facility] Start: 11-28-2022 End: 11-28-[address] Dior Sanchez Work Phone: [facility] Work Phone: Start: 11-11-2022 End: 11-11-[address] Dior Sanchez Work Phone: [facility] Work Phone: Start: 10-17-2022 End: 10-17-[address] Dior Sanchez Work Phone: [facility] Work Phone: Start: 10-02-2022 End: 10-02-[address] Dior Sanchez Work Phone: [facility] Work Phone: Start: 09-17-2022 End: 09-17-[address] [facility] Start: 09-16-2022 End: 09-16-[address] Dior Sanchez Work Phone: [facility] End[facility]in[facility] Work Phone: Start: 09-03-2022 End: 09-03-[address] Dior Sanchez Work Phone: [facility] Work Phone: Start: 03-19-2022 End: 03-19-[address] Dior Sanchez Work Phone: [facility] Work Phone: Start: 03-19-2022 End: 03-19-[address] Dior Sanchez Work Phone: [facility] Start: 03-13-2022 End: 03-13-[address] Dior Sanchez Work Phone: [facility] Work Phone: Start: 03-13-2022 End: 03-13-[address] Dior Sanchez Work Phone: [facility] Start: 03-03-[address] Margaux Sanchez Work Phone: [facility] Work Phone: Start: 03-03-2022 End: 03-03-2022 Encounter for general adult medical examination without abnormal findings Dr. Dior Sanchez Work Phone: [facility] Start: 03-03-2022 End: 03-03-[address] Dior Sanchez Work Phone: [facility] Start: 01-13-2022 End: 01-13-[address] Dior Sanchez Work Phone: [facility] Start: 01-03-2022 End: 01-03-[address] [facility] Start: 10-14-2021 End: 10-14-[address] [facility] Start: 10-09-2021 End: 10-09-[address] [facility] Start: 09-16-2021 End: 09-16-[address] [facility] Start: 07-15-2021 End: 07-15-[address] Dior Sanchez Work Phone: [facility] Start: 07-03-2021 End: 07-03-[address] [facility] Start: 01-14-[address] Margaux Sanchez Work Phone: [facility] Work Phone: Start: 01-01-2012 Evaluation and management of inpatient Dr. Dior Sanchez Work Phone: [facility]- Procedures Date Procedure Procedure Detail Performing Clinician Start: 07-19-2024 Screening mammography Mayco Montalvo MD Work Phone: Start: 09-07-[address] Margaux Sanchez Work Phone: Start: 09-07-[address] Dior Sanchez Work Phone: Start: 09-01-[address] Melania Sanchez Work Phone: Start: 07-06-2023 Screening mammography Mayco Sanchez Work Phone: Start: 03-16-2023 US scan of thyroid Dr. Dior Sanchez Work Phone: Start: 03-06-2023 X-ray of lumbosacral spine Dr. Dior Sanchez Work Phone: Start: 11-28-[address] Melania Sanchez Work Phone: Start: 03-13-2022 Dual energy X-ray absorptiometry Dr. Dior Sanchez Work Phone: Start: 07-03-2021 Screening mammography Mayco Sanchez Work Phone: Plan of Treatment Date Care Activity Detail Author Start: 01-03-2022 Iv infusion therapy/prophylaxis /dx 1st to 1 hr THER/PROPH/DIAG IV INF INIT [facility] Work Phone: Anion gap in Serum o r Plasma [facility] BUN/Creatinine ratio [facility] Calcium [Mass/volume ] in Serum or Plasma [facility] Carbon dioxide, tota l [Moles/volume] in Central venous blood [facility] Creatinine [Mass/vol ume] in Serum or Plasma [facility] Glucose [Mass/volume ] in Serum or Plasma [facility] Measurement of renal function [facility] MG Breast - bilatera l Screening [facility] Work Phone: Potassium measurement [facility] Serum chloride measurement [facility] Sodium measurement [facility] Urea nitrogen [Mass/volume] in Serum or Plasma [facility] US Pelvis [facility] US Pelvis transvaginal [facility] Immunizations Immunization Date Immunization Notes Care Provider Fa cility 04-10-2023 Influenza High-Dose Quadrivalent Dr. Dior Sanchez Work Phone: [facility] 04-10-2023 Pfizer Covid-19 (Comirnaty) Dr. Dior Sanchez Work Phone: [facility] 04-15-2022 Covid Pfizer Bivalen t Booster Dr. Dior Sanchez Work Phone: [facility] 04-15-2022 Seasonal, quadrivale nt, recombinant, injectable influenza vaccine, preservative free Dr. Dior Sanchez Work Phone: [facility] 04-18-2021 Covid (Pfizer) Dr. Dior Sanchez Work Phone: [facility] 04-18-2021 influenza, injectabl e, quadrivalent, preservative free Dr. Dior Sanchez Work Phone: [facility] 04-18-2021 influenza, seasonal, injectable Dr. Dior Sanchez Work Phone: [facility] 04-18-2021 Seasonal, quadrivale nt, recombinant, injectable influenza vaccine, preservative free Dr. Dior Sanchez Work Phone: [facility] 09-16-2020 Covid (Pfizer) Dr. Dior Sanchez Work Phone: [facility] 08-25-2020 Covid (Pfizer) Dr. Dior Sanchez Work Phone: [facility] 04-13-2020 influenza, injectabl e, quadrivalent, preservative free Dr. Dior Sanchez Work Phone: [facility] 04-13-2020 influenza, seasonal, injectable Dr. Dior Sanchez Work Phone: [facility] 04-15-2019 influenza, injectabl e, quadrivalent, preservative free Dr. Dior Sanchez Work Phone: [facility] 04-11-[address] Dior Sanchez Work Phone: [facility] 04-11-2018 influenza, injectabl e, quadrivalent, preservative free Dr. Dior Sanchez Work Phone: [facility] 01-27-2017 Seasonal, quadrivale nt, recombinant, injectable influenza vaccine, preservative free Dr. Dior Sanchez Work Phone: [facility] 05-07-2015 influenza, injectabl e, quadrivalent, preservative free Dr. Dior Sanchez Work Phone: [facility] 02-08-2015 tetanus toxoid, redu francesca diphtheria toxoid, and acellular pertussis vaccine, adsorbed Dr. Dior Sanchez Work Phone: [facility] 01-24-2014 influenza, injectabl e, quadrivalent, preservative free Dr. Dior Sanchez Work Phone: [facility] Payers Date Payer Category Payer Self-pay [id number] 2023 Unknown [id number] Unknown [id number] Unknown [facility] LEVI [id number] Unknown [id number] 2.16.8 [id number] Unknown [id number] 2.16.8 [id number] Unknown [id number] 2.16.8 [id number] Unknown [id number] 2.16.8 [id number] Unknown [id number] 2.16.8 [id number] Unknown [id number] 2.16.8 [id number] Unknown [id number] 2.16.8 [id number] Unknown [id number] 2.16.8 [id number] Unknown [id number] 2.16.8 [id number] Unknown [id number] 2.16.8 [id number] Unknown [id number] 2.16.8 [id number] Unknown [id number] 2.16.8 [id number] Social History Date Type Detail Facility Start: 09-16-2021 End: 09-01-2023 Tobacco smoking status VAIS Unknown if ever smoked [facility] Start: 12-05-2020 Rare [facility] Start: 12-05-2020 Homeless [facility] Start: 08-24-2020 Non-smoker [facility] Start: 1955 Sex Assigned At Female [facility] Start: 09-16-2023 [facility] Clinical Notes 07-03-2021 to 07-19-2024 Note Date & Type Note Facility 07-19-2024 Evaluation note Diagnosis Onset Date Resolution Encounter for routine gynecological examination noneactive July 19 9:21am Anxiety and depression chronic Ap ril 2024 10:12am Benign essential HTN chronic Apri l 2024 10:12am Borderline type 2 diabetes mellitus chronic September 14 10:12am GERD (gastroesophageal reflux disease) chronic September 14, 2024 10:12am Leg pain acute October 27, 2024 8:41am Spider veins acute October 27 8:41am [facility] Work Phone: 1(468) 602-400304-08-2024 Discharge summary Author Gal Kwok [facility] September 14, 2023 9:51am Note Date/Time September 14, 2023 9:51 am [facility] [address] [place] [address]. [address] [place] [address] / REHABILITATION SERVICES DISCHARGE SUMMARY MR#: [id number] Acct: [id number] Name: NELSON BONILLA Rep #: [id number] : 1955 68 From: Gal DING T Referring DrVesta: Self Referred Status: REG RCR Insurance: O MEDICARE SELF PAY INSURANCE Patient Information Patient Information: NELSON BONILLA was seen in my office for initial evaluation on . The following Plan of Care was established for this patient: Anticipated Interventions Therapeutic Exercise to Include: Strength training, Power training, Passive ROM,Active ROM and Scapular Strength/Stabilization For the Purpose of:: To decrease pain, To increase ROM, To improve nutrient delivery to tissue, To increase oxygenation perfusion and To improve muscle performance and motor function Manual Therapy Techniques to Include: Manipulation, Functional dry needling and Soft tissue mobilization For the Purpose of:: To decrease pain, To increase ROM, To improve nutrient delivery to tissue, To increase oxygenation perfusion and To decrease soft tissue restriction Last Seen Last Seen: This patient was last seen in our office 07/08/23. Pertinent comments regardingtheir Physical therapy will appear below: Pt. was seen in PT for self pay DN. Pt. came to 1 visit, but has not been back in several months. PT will be DC from PT at this point in time. At this point I will be discontinuing this patient from physical therapy. I would be happy to see this patient again in the future if found appropriate by the physician. Thank you! Gal Kwok DPT Balance/Gait/Functional tests Balance/Special Test Scores Oswestry Low Back Score: 27 <Electronically signed by Gal Kwok DPT> 09/14/23 0951 CC: Dr. Dior Sanchez MD; Self Referred ~ CLS Signed [facility] Work Phone: 1(781) 871-898004-08-2024 Discharge summary Author Gal Kwok [facility] September 14, 2023 9:50am Note Date/Time September 14, 2023 9:50 am [facility] [address] [place] [address] [address] [place] [place] [address] / REHABILITATION SERVICES DISCHARGE SUMMARY MR#: [id number] Acct: [id number] Name: NELSON BONILLA Rep #: [id number] : 1955 68 From: Gal DING T Referring DrVesta: Self Referred Status: REG RCR Insurance: MMO MEDICARE SELF PAY INSURANCE Patient Information Patient Information: NELSON BONILLA was seen in my office for initial evaluation on . The following Plan of Care was established for this patient: Anticipated Interventions Therapeutic Exercise to Include: Strength training, Power training, Passive ROM,Active ROM and Scapular Strength/Stabilization For the Purpose of:: To decrease pain, To increase ROM, To improve nutrient delivery to tissue, To increase oxygenation perfusion and To improve muscle performance and motor function Manual Therapy Techniques to Include: Manipulation, Functional dry needling and Soft tissue mobilization For the Purpose of:: To decrease pain, To increase ROM, To improve nutrient delivery to tissue, To increase oxygenation perfusion and To decrease soft tissue restriction Last Seen Last Seen: This patient was last seen in our office 07/08/23. Pertinent comments regardingtheir Physical therapy will appear below: Pt. was seen in PT for self pay DN. Pt. came to 1 visit, but has not been back in several months. PT will be DC from PT at this point in time. At this point I will be discontinuing this patient from physical therapy. I would be happy to see this patient again in the future if found appropriate by the physician. Thank you! Gal Kwok, TIMURT Balance/Gait/Functional tests Balance/Special Test Scores Oswestry Low Back Score: 27 <Electronically signed by Gal Kwok DPT> 09/14/23 0950 CC: Dr. Dior Sanchez MD; Self Referred ~ CLS Signed [facility] Work Phone: [phone]) 583-974701-26-2022 NotePap Smear Specimen AdequacyJanuary 2021 12:59amCommentSatisfactory for evaluation. Endocervical component may not bedistinguished in cases of atrophy.[facility]ACED A#[id number] Work Phone: Comment on above:Satisfactory for evaluation. Endocervical component may not bedistinguished in cases of atrophy.07-03-2021 NotePap Smear Specimen AdequacyJanuary 2021 12:59amCommentSatisfactory for evaluation. Endocervical component may not bedistinguished in cases of atrophy. [facility] INTERFACED A#[id number] Clinic [facility] Work Phone: Comment on above:Satisfactory for evaluation. Endocervical component may not bedistinguished in cases of atrophy.Evaluation note* Diagnosis Onset Date Resolution Status Unsatisfactory cervical Papanicolaou smear acute Anxiety and depression chron ic Benign essential HTN chronic Borderline type 2 diabetes mellitus chronic Hyperthyroidism without crisis chronic Hyperthyroidism without crisis chronic Osteopenia determined by x-ray chronic Pre-diabetes chronic Primary hyperparathyroidism [facility] Work Phone: Evaluation note* Diagnosis Onset Date Resolution Status Hyperthyroidism without crisis chronic Osteopenia determined by x-ray chronic Pre-diabetes chronic Primary hyperparathyroidism [facility] Work Phone: Evaluation note* Diagnosis Onset Date Resolution Status Dermatitis acute Benign essential HTN chronic Borderline type 2 diabetes mellitus chronic Hyperthyroidism without crisis chronic Osteopenia determined by x-ray [facility] Work Phone: Evaluation note* Diagnosis Onset Date Resolution Status Dermatitis acute Benign essential HTN chronic Borderline type 2 diabetes mellitus chronic Hyperthyroidism without crisis chronic Osteopenia determined by x-ray [facility] Preventative health care acu te [facility] Work Phone: Evaluation note* Diagnosis Onset Date Resolution Status Dermatitis acute Benign essential HTN chronic Borderline type 2 diabetes mellitus chronic Hyperthyroidism without crisis chronic Osteopenia determined by x-ray chronic Preventative health care acu te Hyperthyroidism without crisis chronic Osteopenia determined by x-ray chronic Pre-diabetes chronic Primary hyperparathyroidism [facility] Work Phone: Evaluation note* Diagnosis Onset Date Resolution Status Anxiety and depression chron ic Benign essential HTN chronic Diabetes chronic Osteopenia determined by x-ray chronic Primary hyperparathyroidism chronic Toxic nodular goiter chronic Benign essential HTN chronic Urinary tract infection none active [facility] Work Phone: Evaluation note* Diagnosis Onset Date Resolution Status Urinary tract infection none active Anxiety and depression chron ic Benign essential HTN chronic Chronic back pain chronic Hyperthyroidism without crisis chronic Thyroid nodule chronic [facility] Work Phone: Evaluation note* Diagnosis Onset Date Resolution Status Anxiety and depression chron ic Benign essential HTN chronic Chronic back pain chronic Hyperthyroidism without crisis chronic Thyroid nodule chronic Multiple thyroid nodules acu te [facility] Work Phone: Evaluation note* Diagnosis Onset Date Resolution Status Anxiety and depression chron ic Benign essential HTN chronic Chronic back pain chronic Hyperthyroidism without crisis chronic Thyroid nodule chronic Multiple thyroid nodules acu te Chronic back pain chronic Muscle pain noneactive [facility] Work Phone: Evaluation note* Diagnosis Onset Date Resolution Status Anxiety and depression chron ic Benign essential HTN chronic Chronic back pain chronic GERD (gastroesophageal reflux disease) chronic Encounter for routine gynecological examination noneactive Pelvic pain acute [facility] Work Phone: Reason for referral (narrative)No reason for referral information availableWCleveland Clinic Fairview Hospital Work Phone: Summary Purpose Family History Relationship Condition Age at Onset Recorded Date/T negrito mother Diabetes mellitus Unknown Myocardial infarction Unknown Cerebrovascular accident (CVA) Unknown Disorder of thyroid Unknown Malignant neoplasm Unknown Kidney disorder Unknown father Myocardial infarction Unknown Cardiac disease Unknown sister Lupus erythematosus Unknown Advance Directives Advance Directive Response Recorded Date/ Time Living Will No August 24, 2020 9:59am Power of Animal Cruelty Investigation Supervisor No August 24 9:59am Advance Directive Response Recorded Date/ Time Living Will No August 24, 2020 8:59am Power of Animal Cruelty Investigation Supervisor No August 24 8:59am Advance Directive Response Recorded Date/ Time Living Will No August 24, 2023 11:12am Power of Animal Cruelty Investigation Supervisor No August 23 11:12am Advance Directive Response Recorded Date/ Time Living Will No August 24, 2020 9:59am Do you have a Healthcare Power of Animal Cruelty Investigation Supervisor? No August 24, 2020 9:59am Living Will No August 24, 2023 11:12am Do you have a Healthcare Power of Animal Cruelty Investigation Supervisor? 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 FU Reason for Visit Unsatisfactory cervi winnie Papanicolaou smear Anxiety and depression Benign essential HTN Borderline type 2 diabetes mellitus Hyperthyroidism without crisis Hyperthyroidism without crisis Osteopenia determined by x-ray Pre-diabetes Primary hyperparathyroidism Chief Complaint 6 M FU ZOLEDRONIC ACID Reason for Visit Hyperthyroidism with out crisis Osteopenia determined by x-ray Pre-diabetes Primary hyperparathyroidism Chief Complaint ZOLEDRONIC ACID 6 M FU Reason for Visit Dermatitis Benign essential HTN Borderline type 2 diabetes mellitus Hyperthyroidism without crisis Osteopenia determined by x-ray Chief Complaint ZOLEDRONIC ACID 6 M FU wellness- we have form POST [employer] Reason for Visit Dermatitis Benign essential HTN Borderline type 2 diabetes mellitus Hyperthyroidism without crisis Osteopenia determined by x-ray Preventative health care Chief Complaint ZOLEDRONIC ACID 6 M FU wellness- we have form POST CIERA 6 M FU Reason for Visit Dermatitis Benign essential HTN Borderline type 2 diabetes mellitus Hyperthyroidism without crisis Osteopenia determined by x-ray Preventative health care Hyperthyroidism without crisis Osteopenia determined by x-ray Pre-diabetes Primary hyperparathyroidism Chief Complaint 6 M FU 6 M FU Thyroid Check up BP CHK BP CHK Urinary tract infection Reason for Visit Anxiety and depressi on Benign essential HTN Diabetes Osteopenia determined by x-ray Primary hyperparathyroidism Toxic nodular goiter Benign essential HTN Urinary tract infection Chief Complaint Urinary tract infect ion 6 M FU ADD BACK XRAY NODULES Reason for Visit Urinary tract infect ion Anxiety and depression Benign essential HTN Chronic back pain Hyperthyroidism without crisis Thyroid nodule Chief Complaint 6 M FU ADD BACK XRAY NODULES THYROID NODULE FNA THYROID NODULE Reason for Visit Anxiety and depressi on Benign essential HTN Chronic back pain Hyperthyroidism without crisis Thyroid nodule Multiple thyroid nodules Chief Complaint 6 M FU ADD BACK XRAY NODULES THYROID NODULE FNA THYROID NODULE acute - severe back pain Reason for Visit Anxiety and depressi on Benign essential HTN Chronic back pain Hyperthyroidism without crisis Thyroid nodule Multiple thyroid nodules Chronic back pain Muscle pain Chief Complaint 1 M FU SCREENING BACK PAIN DRY NEEDLING. 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 9:21am SCREENING July 19, 2024 9:56am 6 M September 14, 2024 10:1 2am Varicose veins October 27, 2024 8:41a m VENOUS INSUFFICIENCY CHRONIC PERIPHERAL November 10, 2024 8:31am Reason for Visit Admit Date Encounter for routine gynecological exam ination July 19, 2024 9:21am Anxiety and depression September 14, 2024 1 0:12am Benign essential HTN September 14, 2024 10: 12am Borderline type 2 diabetes mellitus Apri l 2024 10:12am GERD (gastroesophageal reflux disease) A pril 2024 10:12am Leg pain October 27, 2024 8:41a m Spider veins October 27, 2024 8:41a m Additional Source Comments INFORMATION SOURCE (unrecogn ized section and content) DATE CREATED AUTHOR 11/26/2017 [facility] DATE CREATED AUTHOR AUTHOR'S ORGANIZ ATION 11/11/2024 [facility] Goals (unrecognized section and content) Goals may be documented in a n alternate sectionGoals may be documented in an alternate sectionGoals may be documented in an alternate sectionGoals may be documented in an alternate sectionGoals may be documented in an alternate sectionGoals may be documented in an alternate sectionGoals may be documented in an alternate sectionGoals may be documented in an alternate sectionGoals may be documented in an alternate sectionGoals may be documented in an alternate sectionGoals may be documented in an alternate sectionGoals may be documented in an alternate sectionGoals may be documented in an alternate sectionGoals may be documented in an alternate section Care Teams (unrecognized sec tion and content) Team Status: Active Member Role Status Dates Dr. Dior Sanchez MD Family Provider Active Dr. Dior Sanchez MD Primary Care Provider Active Team Status: Inactive Member Role Status Dates Dr. Dior Sanchez MD Primary Care Provider, Refer ring Provider Active Osmany Morgan YIELD CLERK, YIELD CLERK-C Attending Provider Active Team Status: Inactive Member Role Status Dates Dr. Dior Sanchez MD Primary Care Provider, Refer ring Provider Active Dr. Thong Martinez MD Attending Provider Active Team Status: Inactive Member Role Status Dates Dr. Dior Sanchez MD Primary Care P phong, Attending Provider, Referring Provider Active Team Status: Inactive Member Role Status Dates Dr. Dior Sanchez MD Primary Care Provider, Refer ring Provider Active Bryce Wong PA, PA Attending Provider Active Team Status: Active Member Role Status Dates Dr. Stephanie Montalvo MD Primary Care Provider, Family Provider Active Team Status: Inactive Member Role Status Dates Dr. Dior Sanchez MD Primary Care Provider Active Dr. Thong Martinez MD Attending Provider, Referring Provi stevie Active Team Status: Inactive Member Role Status Dates Dr. Dior Sanchez MD Primary Care Provider Active Bryce Wong PA, PA Attending Provider, Referring Pr elisaer Active Team Status: Inactive Member Role Status Dates Dr. Dior Sanchez MD Primary Care Provider, Refer ring Provider Active Dr. Mika Mejia MD Attending Provider Active Team Status: Inactive Member Role Status Dates Dr. Dior Sanchez MD Primary Care Provider Active Dr. Mika Mejia MD Attending Provider Active Team Status: Inactive Member Role Status Dates Dr. Dior Sanchez MD Primary Care Provider, Refer ring Provider Active Dr. Rachel Littlejohn MD Attending Provider Active Team Status: Inactive Member Role Status Dates Dr. Dior Sanchez MD Primary Care Provider, Refer ring Provider Active Mariella Vega YIELD CLERK, YIELD CLERK-C Attending Provider Active Team Status: Inactive Member Role Status Dates Dr. Dior Sanchez MD Primary Care Provider Active Mariella Vega YIELD CLERK, YIELD CLERK-C Attending Provider, Referring Provider Active Team Status: Active Member Role Status Dates Dr. Dior Sanchez MD Primary Care Provider Active Self Referred Attending Provider, Referring Provider A ctive Team Status: Inactive Member Role Status Dates Dr. Dior Sanchez MD Primary Care Provider Active Self Referred Attending Provider, Referring Provider A ctive Team Status: Active Member Role Status Dates Dr. Dior Sanchez MD Primary Care Provider Active Team Status: Active Member Role Status Dates Dr. Stephanie Montalvo MD Primary Care Provider Active Start: January 01, 2012 Dr. Stephanie Montalvo MD Family Provider Active S tart: January 01, 2012 Team Status: Inactive Member Role Status Dates Dr. Dior Sanchez MD Primary Care Provider Active Start: July 19, 2024 End: July 19, 2024 Dr. Dior Sanchez MD Referring Provider Active Start: July 19, 2024 End: July 19, 2024 Mariella Vega YIELD CLERK, YIELD CLERK-C Attending Provider Active Start: July 19, 2024 End: July 19, 2024 Team Status: Inactive Member Role Status Dates Dr. Dior Sanchez MD Primary Care Provider Active Start: July 19, 2024 End: July 19, 2024 Mariella Vega YIELD CLERK, YIELD CLERK-C Attending Provider Active Start: July 19, 2024 End: July 19, 2024 Mariella Vega YIELD CLERK, YIELD CLERK-C Referring Provider Active Start: July 19, 2024 End: July 19, 2024 Team Status: Inactive Member Role Status Dates Dr. Dior Sanchez MD Primary Care Provider Active Start: September 14, 2024 End: September 14, 2024 Dr. Dior Sanchez MD Attending Provider Active Start: September 14, 2024 End: September 14, 2024 Dr. Dior Sanchez MD Referring Provider Active Start: September 14, 2024 End: September 14, 2024 Team Status: Inactive Member Role Status Dates Dr. Dior Sanchez MD Primary Care Provider Active Start: October 27, 2024 End: October 27, 2024 Dr. Dior Sanchez MD Referring Provider Active Start: October 27, 2024 End: October 27, 2024 ANGIE Verde Attending Provider Active Star t: October 27, 2024 End: October 27, 2024 Team Status: Inactive Member Role Status Dates Dr. Dior Sanchez MD Primary Care Provider Active Start: November 10, 2024 End: November 10, 2024 ANGIE Verde Attending Provider Active Star t: November 10, 2024 End: November 10, 2024 ANGIE Verde Referring Provider Active Star t: November 10, 2024 End: November 10, 2024 Team Status: Active Member Role Status Dates Dr. Dior Sanchez MD Primary Care Provider Active Start: November 10, 2024 Dr. Cristian Worthington MD Attending Provider Active S tart: November 10, 2024 Team Status: Active Member Role Status Dates Dr. Dior Sanchez MD Primary Care Provider Active Start: November 14, 2024 Dr. Dior Sanchez MD Attending Provider Active Start: November 14, 2024 Dr. Dior Sanchez MD Referring Provider Active Start: November 14, 2024 FOR RECORDS PERTAINING TO PATIENTS WHO ARE OR HAVE BEEN ENROLLED IN A CHEMICAL DEPENDENCY/SUBSTANCEABUSE PROGRAM, SOME INFORMATION MAY BE OMITTED. This clinical summary was aggregated from multiple sources. Caution should be exercised in using it in the provision of clinical care. This summary normalizes information from multiple sources, and as a consequence, information in this document may materially change the coding, format and clinical context of patient data. In addition, data may be omitted in some cases. CLINICAL DECISIONS SHOULD BE BASED ON THE PRIMARY CLINICAL RECORDS. [facility] [employer] [facility]. provides no warranty or guarantee of the accuracy or completeness of information in this document.
== END | disposition home or self-care (01) ==
LOC: BIMLAB 11:06
PROVIDERS: PCP Internal Medicine; Referring Provider Internal Medicine; Visit Provider Internal Medicine
DX: E87.6 Hypokalemia (principal)
CPT/HCPCS: 36415; 80048

== ENCOUNTER → 2025-03-15 | Outpatient (CLI) | payer MEDICARE, SELFPAY ==
[2025-03-15 11:10] LABS: Mucous, Urine 0 SEEN /hpf (<or=2+); Red Blood Cells-Urine 0 SEEN /hpf (0-5); Squamous Epithelial Cells - UA 0 SEEN /hpf (5-10)
--- NOTE | 2025-03-15 11:40 | RAD_ITS ---
PROCEDURE: HIP, UNI W/ PELVIS 2-3 VIEWS 03/15/2025 REASON FOR EXAM: LEFT HIP PAIN TECHNIQUE: Procedure Code: [facility] Modality: DX Procedure: HIP, UNI W/ PELVIS 2-3 VIEWS Laterality: Left COMPARISON: None FINDINGS: Bones: AP pelvic view was obtained as well as two views of the left hip. There is normal mineralization of the osseous structures. There are no fractures or dislocations. Joints: Very mild arthritic changes are seen involving the left hip. Very mild arthritic changes are seen involving the right hip. SI joints are unremarkable. Pubic symphysis is unremarkable. Soft tissues: No soft tissue swelling is seen. Other: Phleboliths are seen in the pelvis. Surgical clips are seen in the pelvis. The patient appears to be side bent towards the left side. RAD/HIP, UNI W/ Pelvis 2-3 Views IMPRESSION: There are no fractures or dislocations of the bony pelvis or either hip. Mild arthritic changes left hip. Mild arthritic changes right hip. Reading Location: [id number]
[2025-03-15 11:57] LABS: Hematocrit 40.4 % (37-47); Hemoglobin 13.2 g/dL (12.0-15.0); Immature Granulocytes Count 0.010 X10^3/uL (0.0-0.0); Mean Corp Hgb Conc 32.7 g/dL (32-36); Mean Corpuscular Volume 86.9 fL (81-99); Mean Platelet Vol. 10.6 fl (6.2-12.0); NRBC Flagged by Analyzer 0 % (0-5); Platelet Count 173 K/mm3 (150-450); RBC Distribution Width CV 12.4 % (11.6-14.6); RBC Distribution Width SD 39.2 fl (35.1-43.9); Red Blood Count 4.65 M/mm3 (4.2-5.4); White Blood Count 6.5 K/mm3 (4.4-11.0)
[2025-03-15 12:06] LABS: Color, Urine Yellow (Yellow); Glucose, Dipstick Normal (Normal); Ketone-Dipstick Negative (Negative); Leukocyte Esterase-Dipstick 500 /ul (Negative); Nitrite-Dipstick Positive (Negative); Occult Blood-Urine 10 /ul (Negative); Protein-Dipstick 30 mg/dl (Negative); Specific Gravity, Urine 1.020 (1.002-1.030); Urine Bilirubin Dipstick Negative (Negative)
[2025-03-15 12:25] LABS: AST(SGOT) 20 U/L (<=31); Alanine Aminotransfer ALT/SGPT 21 U/L (<=34); Albumin, Serum 4.0 g/dL (3.4-4.8); Alkaline Phosphatase 83 U/L (35-104); Anion Gap 9 (5-15); BUN 18 mg/dL (4-19); BUN/Creat Ratio 27.0 RATIO (10-20); Calcium,Total 10.6 mg/dL (7.6-11.0); Carbon Dioxide 27.4 mmol/L (21.0-32.0); Chloride 106 mmol/L (98-108); Cholesterol 185 mg/dL (<=200); Globulin 3.0 g/dL (2.2-4.2); Glucose 99 mg/dL (70-99); Low Density Lipoprotein Calc. 112 mg/dL; Potassium 4.4 mmol/L (3.3-5.1); Triglycerides 71 mg/dL; Very Low Density Lipoprotein 14 mg/dL (5-40); cholesterol:hdl ratio screen 3.14
== END | disposition home or self-care (01) ==
PROVIDERS: PCP Internal Medicine; Referring Provider Internal Medicine; Visit Provider Internal Medicine
DX: I10 Essential (primary) hypertension (principal); R35.0 Frequency of micturition; M25.552 Pain in left hip; R73.09 Other abnormal glucose
CPT/HCPCS: 36415; 73502; 80053; 80061; 81001; 83036; 85025; 87077; 87086; 87088; 87186

== ENCOUNTER → 2025-05-29 | Outpatient (CLI) | payer MEDICARE, SELFPAY ==
[2025-05-29 17:07] LABS: Color, Urine Yellow (Yellow); Glucose, Dipstick Normal (Normal); Ketone-Dipstick Negative (Negative); Leukocyte Esterase-Dipstick 500 /ul (Negative); Nitrite-Dipstick Negative (Negative); Occult Blood-Urine Negative /ul (Negative); Protein-Dipstick 15 mg/dl (Negative); Specific Gravity, Urine 1.020 (1.002-1.030); Urine Bilirubin Dipstick Negative (Negative)
[2025-05-29 17:35] LABS: Mucous, Urine 2+ /hpf (<or=2+); Red Blood Cells-Urine 5-10 SEEN /hpf (0-5); Squamous Epithelial Cells - UA 10-25 SEEN /hpf (5-10)
== END | disposition home or self-care (01) ==
LOC: LAB 16:43
PROVIDERS: PCP Internal Medicine; Referring Provider Internal Medicine; Visit Provider Internal Medicine
DX: R10.9 Unspecified abdominal pain (principal)
CPT/HCPCS: 36415; 81001; 87086; 87088